=== PATIENT | female | born 1975 | race Caucasian/White ===

== ENCOUNTER → 2017-01-12 | Outpatient (REF) | payer MEDICARE, MEDICAID ==
[~2017-01-12] MED LIST: ACET500C; METF500T PO; NIAC10TAB PO; OMEG500C PO; TYLE500T53 OR; VESICARE OR
== END ==
LOC: M LAB REF 15:45
PROVIDERS: ATTEND Family Medicine
DX: R30.0 Dysuria (principal); R51 Headache; M99.01 Segmental and somatic dysfunction of cervical region; M99.00 Segmental and somatic dysfunction of head region
CPT/HCPCS: 81002; 87088; 87186; 98925; G0463

== ENCOUNTER → 2017-01-15 | Outpatient (REF) | payer MEDICARE, MEDICAID ==
[2017-01-15 13:57] LABS: ANION GAP 10 MEQ/L (8-16); BLOOD UREA NITROGEN 17 MG/DL (7-18); CALCIUM LEVEL 9.1 MG/DL (8.5-10.1); CARBON DIOXIDE LEVEL 26 MEQ/L (21-32); CHLORIDE LEVEL 106 MEQ/L (98-107); CREATININE FOR GFR 1.06 MG/DL (0.55-1.02); GLOMERULAR FILTRATION RATE > 60.0 (>58); GLUCOSE, FASTING 87 MG/DL (70-105); POTASSIUM SERUM 4.5 MEQ/L (3.5-5.1); SODIUM LEVEL 142 MEQ/L (136-145)
== END ==
LOC: M SFHCPLAZ 11:22
PROVIDERS: ATTEND Family Medicine
DX: R80.9 Proteinuria, unspecified (principal)

== ENCOUNTER → 2017-01-18 | Outpatient (CLI) | payer MEDICAID, MEDICARE ==
--- NOTE | 2017-01-18 13:42 | REP ---
URINARY TRACT SONOGRAPHY WITH RENAL ARTERY DOPPLER FLOW ASSESSMENT: HISTORY: Proteinuria. The patient is status post prior left nephrectomy. MORPHOLOGIC FINDINGS: Scanning at the level of the urinary bladder shows smooth bladder andersen. No extravesical lesion or ascites seen. Renal cortical echogenicity pattern is normal in the right kidney and right renal contours are smooth. The right kidney measures 14.1 x 6.2 x 7.2 cm. No hydronephrosis is seen. No cyst, mass, or calculus is seen. Imaging of the left renal fossa shows no evidence of mass. Prior nephrectomy. DOPPLER FLOW FINDINGS: Peak systolic flow velocity in the abdominal aorta is normal measured at 63.8 cm at the level of the main renal artery. Peak systolic flow velocity in the right main renal artery is 102 cm/s, which is also normal. Resistive indices and acceleration times are measured in the intralobar arteries of the right kidney in the upper, mid and lower pole. These values are normal. IMPRESSION: 1. Status post left nephrectomy. 2. No morphologic abnormality in the right kidney. 3. No renal artery Doppler evidence of stenosis. Signed by Mal James MD 01/18/2017 05:37 P
== END ==
LOC: M RAD 07:48
PROVIDERS: ATTEND Family Medicine
DX: R80.9 Proteinuria, unspecified (principal)

== ENCOUNTER → 2017-04-10 | Outpatient (REF) | payer MEDICARE, MEDICAID ==
[2017-04-10 18:45] LABS: BACTERIA, URINE MOD AMOUNT; HYALINE CAST, URINE NONE SEEN /lpf (0-1); SQUAMOUS EPITHELIAL CELL URINE MOD AMOUNT /hpf (SMALL AMT)
[2017-04-10 18:46] LABS: MICROSCOPIC EXAM PERFORMED
[2017-04-10 19:13] LABS: COMPLEMENT C3 137 MG/DL (90-180); COMPLEMENT C4 43.4 MG/DL (10-40)
[2017-04-11 12:10] LABS: HEPATITIS B SURFACE ANTIBODY NEGATIVE (POSITIVE)
[2017-04-14 00:06] LABS: SJOGREN'S ANTI SS-A <0.2 AI (0.0-0.9); SJOGREN'S ANTI SS-B <0.2 AI (0.0-0.9)
== END ==
LOC: M LAB REF 17:00
PROVIDERS: ATTEND Internal Medicine Nephrology
DX: R80.9 Proteinuria, unspecified (principal)

== ENCOUNTER → 2017-04-19 | Outpatient (REF) | payer MEDICARE, MEDICAID | LOC: M LAB REF 12:48 | PROVIDERS: ATTEND Internal Medicine Nephrology | DX: Z90.5 Acquired absence of kidney (principal); N18.6 End stage renal disease; R80.9 Proteinuria, unspecified ==

== ENCOUNTER → 2017-05-07 | Outpatient (CLI) | payer MEDICARE, MEDICAID ==
[~2017-05-07] MED LIST changes: +ALLO100T; +CLINDAMYCIN; +ERTA1INJ; +[UNRECOGNIZED DRUG - CODE]
[2017-05-07 13:02] LABS: BASO % 0.6 % (0.0-1.0); EOS # 0.1 K/mm3 (0.0-0.50); LARGE UNSTAINED CELL # 0.2 K/mm3 (0.0-0.4); LARGE UNSTAINED CELL % 1.9 % (0.0-4.0); LYMPH # 1.9 K/mm3 (1.5-4.5); LYMPH % 21.9 % (24.0-44.0); MEAN CORPUSCULAR HEMOGLOBIN 30.2 pg (27.0-33.0); MEAN CORPUSCULAR VOLUME 88.8 fl (80.0-96.0); MONO # 0.5 K/mm3 (0.0-0.8); MONO % 5.3 % (0.0-5.0); NEUTROPHILS % 69.3 % (36.0-66.0); PLATELET COUNT, AUTOMATED 302 k/mm3 (150-450); RED CELL DISTRIBUTION WIDTH 13.1 % (11.5-14.5); WHITE BLOOD COUNT 8.7 K/mm3 (4.0-10.0)
[2017-05-07 13:51] LABS: ALBUMIN 3.2 GM/DL (3.2-5.2); ANION GAP 7 MEQ/L (8-16); BLOOD UREA NITROGEN 12 MG/DL (7-18); CALCIUM LEVEL 8.7 MG/DL (8.5-10.1); CARBON DIOXIDE LEVEL 27 MEQ/L (21-32); CHLORIDE LEVEL 107 MEQ/L (98-107); CREATININE FOR GFR 1.06 MG/DL (0.55-1.02); GLOMERULAR FILTRATION RATE > 60.0 (>58); GLUCOSE, FASTING 93 MG/DL (70-105); PHOSPHORUS LEVEL 2.4 MG/DL (2.5-4.9); POTASSIUM SERUM 4.6 MEQ/L (3.5-5.1); SODIUM LEVEL 141 MEQ/L (136-145); URIC ACID 6.9 MG/DL (2.6-6.0)
== END ==
LOC: M LAB 11:39
PROVIDERS: ATTEND Internal Medicine Nephrology
DX: N18.3 Chronic kidney disease, stage 3 (moderate) (principal)

== ENCOUNTER → 2017-05-10 | Outpatient (CLI) | payer MEDICARE, MEDICAID | LOC: M LAB 15:48 | PROVIDERS: ATTEND Internal Medicine Nephrology | DX: N39.0 Urinary tract infection, site not specified (principal) ==

== ENCOUNTER → 2017-07-27 | Outpatient (REF) | payer MEDICARE, MEDICAID | LOC: M LAB REF 16:51 | PROVIDERS: ATTEND Internal Medicine Nephrology | DX: N18.2 Chronic kidney disease, stage 2 (mild) (principal); N39.0 Urinary tract infection, site not specified ==

== ENCOUNTER 2017-07-30 14:50 | Emergency (ER) | payer MEDICARE, MEDICAID ==
[~2017-07-30] VITALS: Ht 170.2 cm; Wt 100.0 kg
[~2017-07-30 14:50] MED LIST changes: -ALLO100T; -CLINDAMYCIN; -ERTA1INJ; -[UNRECOGNIZED DRUG - CODE]
[2017-07-30] MEDS ORDERED: ALLO100T (14:56)
[2017-07-30] MEDS ORDERED: CLINDAMYCIN (14:56)
[2017-07-30 18:46] LABS: CONTROL LINE UCG INT CTR LINE PRESENT
[2017-07-30] MEDS ORDERED: GENTAMICIN 100 MG in APPROPRIATE DILUENT 1 EA IV ONE (20:30)
[2017-07-30] MEDS ORDERED: GENTAMICIN 100 MG in D5W 50 ML IM ONE (21:15)
[2017-07-30 21:25] LABS: BASO % 0.3 % (0.0-1.0); EOS # 0.1 10^3/uL (0.0-0.50); EOS % 0.4 % (0.0-3.0); IMMATURE GRANULOCYTE % 0.3 % (0-0); LYMPH # 2.3 10^3/uL (1.5-4.5); LYMPH % 19.1 % (24.0-44.0); MEAN CORPUSCULAR HGB CONC 33.9 g/dl (32.0-36.5); MEAN CORPUSCULAR VOLUME 88.4 fl (80.0-96.0); MONO # 0.7 10^3/uL (0.0-0.8); MONO % 5.6 % (0.0-5.0); NEUTROPHILS # 8.7 10^3/uL (1.8-7.7); NEUTROPHILS % 74.3 % (36.0-66.0); PLATELET COUNT, AUTOMATED 364 10^3/uL (150-450); RED CELL DISTRIBUTION WIDTH 13.4 % (11.5-14.5); WHITE BLOOD COUNT 11.8 10^3/uL (4.0-10.0)
[2017-07-30] MEDS ORDERED: GENTAMICIN SULF INJ 80MG/2ML VIAL (J1580) IM ONE (21:30)
[2017-07-30 21:43] LABS: ANION GAP 10 MEQ/L (8-16); BLOOD UREA NITROGEN 15 MG/DL (7-18); CALCIUM LEVEL 8.8 MG/DL (8.5-10.1); CARBON DIOXIDE LEVEL 21 MEQ/L (21-32); CHLORIDE LEVEL 109 MEQ/L (98-107); CREATININE FOR GFR 0.97 MG/DL (0.55-1.02); GLOMERULAR FILTRATION RATE > 60.0 (>58); GLUCOSE, FASTING 88 MG/DL (70-105); POTASSIUM SERUM 4.5 MEQ/L (3.5-5.1); SODIUM LEVEL 140 MEQ/L (136-145)
[2017-07-30 22:14] VITALS: BP 143/98
== END 2017-07-30 22:27 | disposition home or self-care (01) ==
LOC: M ED 14:50
DX: N39.0 Urinary tract infection, site not specified (principal); A49.8 Other bacterial infections of unspecified site; Z79.899 Other long term (current) drug therapy; Z88.8 Allergy status to other drugs, medicaments and biological substances; Z88.1 Allergy status to other antibiotic agents; Z88.5 Allergy status to narcotic agent; Z88.6 Allergy status to analgesic agent; Z88.0 Allergy status to penicillin; Z88.2 Allergy status to sulfonamides
CPT/HCPCS: 36415; 80048; 81001; 84703; 85025; 87040; 87088; 87186; 96372; 99283; J1580

== ENCOUNTER → 2017-08-01 | Outpatient (CLI) | payer MEDICARE, MEDICAID ==
[~2017-08-01] MED LIST changes: +ALLO100T; +CLINDAMYCIN; +ERTA1INJ; +[UNRECOGNIZED DRUG - CODE]
--- NOTE | 2017-08-01 15:20 | REP ---
LEFT PICC LINE PLACEMENT: The procedure was performed by SHIRA Bhatt under the direct supervision of Dr. Kinsey. The procedure along with its risks, benefits, and complications were discussed with the patient prior to the examination. Informed consent was obtained both verbally and written. The patient was identified in the interventional suite and placed in a supine position. The left arm was marked, prepped and draped in the usual sterile fashion. A procedural time out was performed to ensure that the correct patient, site and procedure were being performed. Under ultrasound guidance, the left basilic vein was punctured. A thin guidewire was introduced and the needle was removed. Local infiltrative anesthesia was achieved using 2% lidocaine. A break-away sheath was then placed. Under fluoroscopic observation and via the break-away sheath, a 38.5 cm #4.5-Bangladeshi single lumen PICC line was placed with its tip a the junction of the distal superior vena cava. The catheter was flushed with heparinized saline and affixed to the patient's skin. The patient tolerated the procedure well. Fluoroscopy time of 0.8 minutes. IMPRESSION: Uncomplicated left arm PICC line placement. Reviewed by SHIRA Mayer 08/01/2017 04:35 PEdited and Signed by Vargas Kinsey MD 08/01/2017 05:01 P
== END ==
LOC: M RADPRO 08:30
PROVIDERS: ATTEND Internal Medicine Nephrology
DX: N10 Acute pyelonephritis (principal); N18.2 Chronic kidney disease, stage 2 (mild); Z90.5 Acquired absence of kidney; Z88.8 Allergy status to other drugs, medicaments and biological substances; Z88.0 Allergy status to penicillin; Z88.5 Allergy status to narcotic agent; Z88.1 Allergy status to other antibiotic agents; Z91.011 Allergy to milk products; Z79.899 Other long term (current) drug therapy

== ENCOUNTER 2017-08-03 16:00 | Emergency (ER) | payer MEDICARE, MEDICAID ==
[~2017-08-03] VITALS: Ht 170.2 cm; Wt 100.0 kg
[~2017-08-03 16:00] MED LIST changes: -ERTA1INJ; -[UNRECOGNIZED DRUG - CODE]
[2017-08-03] MEDS ORDERED: ERTA1INJ (16:07)
[2017-08-03] MEDS ORDERED: [UNRECOGNIZED DRUG - CODE] (16:07)
[2017-08-03 19:12] VITALS: BP 154/102
== END 2017-08-03 19:15 | disposition home or self-care (01) ==
LOC: M ED 16:00
DX: N39.0 Urinary tract infection, site not specified (principal); Z90.5 Acquired absence of kidney; Z95.9 Presence of cardiac and vascular implant and graft, unspecified; Z79.899 Other long term (current) drug therapy; Z88.8 Allergy status to other drugs, medicaments and biological substances; Z88.1 Allergy status to other antibiotic agents; Z88.5 Allergy status to narcotic agent; Z88.6 Allergy status to analgesic agent; Z88.0 Allergy status to penicillin; Z88.2 Allergy status to sulfonamides

== ENCOUNTER → 2017-12-10 | Outpatient (REF) | payer MEDICARE, MEDICAID | LOC: M LAB REF 17:09 | DX: N18.3 Chronic kidney disease, stage 3 (moderate) (principal); R80.9 Proteinuria, unspecified; M32.9 Systemic lupus erythematosus, unspecified | CPT/HCPCS: 82570 ==

== ENCOUNTER 2017-12-15 21:02 | Emergency (ER) | payer MEDICARE, MEDICAID ==
[2017-12-15 22:19] LABS: BASO % 0.4 % (0.0-1.0); EOS % 0.3 % (0.0-3.0); HEMATOCRIT 41.2 % (36.0-47.0); HEMOGLOBIN 13.9 g/dl (12.0-16.0); IMMATURE GRANULOCYTE % 0.3 % (0-3.0); LYMPH # 1.7 10^3/uL (1.5-4.5); MEAN CORPUSCULAR HEMOGLOBIN 29.8 pg (27.0-33.0); MEAN CORPUSCULAR HGB CONC 33.7 g/dl (32.0-36.5); MEAN CORPUSCULAR VOLUME 88.2 fl (80.0-96.0); MONO # 0.5 10^3/uL (0.0-0.8); MONO % 5.8 % (0.0-5.0); NEUTROPHILS # 6.9 10^3/uL (1.8-7.7); NEUTROPHILS % 75.2 % (36.0-66.0); PLATELET COUNT, AUTOMATED 329 10^3/uL (150-450); RED BLOOD COUNT 4.67 10^6/uL (4.00-5.40); RED CELL DISTRIBUTION WIDTH 12.8 % (11.5-14.5); WHITE BLOOD COUNT 9.2 10^3/uL (4.0-10.0)
[2017-12-15 22:22] LABS: KETONE, URINE AUTO RFX NEGATIVE (NEGATIVE); MUCUS, URINE RFX SMALL (NEGATIVE); NITRITE, URINE AUTO RFX NEGATIVE (NEGATIVE); RBC, URINE AUTO RFX 3 /HPF (0-3); SPECIFIC GRAVITY UR AUTO RFX 1.013 (1.002-1.035); SQUAM EPITHELIAL CELL UR AURFX 3 /HPF (0-6)
[2017-12-15] MEDS: NS 1,000 ML IV (22:22)
[2017-12-15 22:23] LABS: LEUKOCYTE ESTERASE UR AUTO RFX 1+ (NEGATIVE); WBC, URINE AUTO RFX 26 /HPF (0-3)
[2017-12-15] MEDS: ONDANSETRON 4MG/2ML VIAL (J2405) IV (22:23)
[2017-12-15 22:45] LABS: ALBUMIN 3.8 GM/DL (3.2-5.2); ALKALINE PHOSPHATASE 80 U/L (45-117); ALT/SGPT 13 U/L (12-78); AMYLASE 60 U/L (25-115); ANION GAP 7 MEQ/L (8-16); AST/SGOT 8 U/L (7-37); BILIRUBIN,DIRECT 0.1 MG/DL (0.0-0.2); BILIRUBIN,TOTAL 0.8 MG/DL (0.2-1.0); BLOOD UREA NITROGEN 8 MG/DL (7-18); CALCIUM LEVEL 9.1 MG/DL (8.5-10.1); CARBON DIOXIDE LEVEL 28 MEQ/L (21-32); CHLORIDE LEVEL 104 MEQ/L (98-107); GLUCOSE, FASTING 87 MG/DL (70-100); LIPASE 109 U/L (73-393); POTASSIUM SERUM 3.7 MEQ/L (3.5-5.1); SODIUM LEVEL 139 MEQ/L (136-145); TOTAL PROTEIN 7.6 GM/DL (6.4-8.2)
== END 2017-12-16 00:38 | disposition home or self-care (01) ==
LOC: M ED 12-16 00:38
DX: A08.4 Viral intestinal infection, unspecified (principal); R01.1 Cardiac murmur, unspecified; Z79.899 Other long term (current) drug therapy; Z88.8 Allergy status to other drugs, medicaments and biological substances; Z88.5 Allergy status to narcotic agent; Z91.041 Radiographic dye allergy status; Z88.1 Allergy status to other antibiotic agents; Z88.0 Allergy status to penicillin; Z88.2 Allergy status to sulfonamides
CPT/HCPCS: J2405

== ENCOUNTER → 2018-05-13 | Outpatient (REF) | payer MEDICARE, MEDICAID | LOC: M LAB REF 19:00 | DX: N39.0 Urinary tract infection, site not specified (principal) ==

== ENCOUNTER → 2018-05-20 | Outpatient (REF) | payer MEDICARE, MEDICAID ==
[2018-05-20 14:01] LABS: BASO # 0.1 10^3/uL (0.0-0.2); BASO % 0.6 % (0.0-1.0); EOS # 0.2 10^3/uL (0.0-0.50); EOS % 2.9 % (0.0-3.0); HEMATOCRIT 37.7 % (36.0-47.0); HEMOGLOBIN 12.9 g/dl (12.0-15.5); IMMATURE GRANULOCYTE % 0.5 % (0-3.0); LYMPH # 1.6 10^3/uL (1.5-4.5); LYMPH % 19.8 % (24.0-44.0); MEAN CORPUSCULAR HEMOGLOBIN 29.7 pg (27.0-33.0); MEAN CORPUSCULAR HGB CONC 34.2 g/dl (32.0-36.5); MEAN CORPUSCULAR VOLUME 86.9 fl (80.0-96.0); MONO # 0.6 10^3/uL (0.0-0.8); MONO % 6.7 % (0.0-5.0); NEUTROPHILS # 5.7 10^3/uL (1.8-7.7); NEUTROPHILS % 69.5 % (36.0-66.0); PLATELET COUNT, AUTOMATED 341 10^3/uL (150-450); RED BLOOD COUNT 4.34 10^6/uL (4.00-5.40); RED CELL DISTRIBUTION WIDTH 12.5 % (11.5-14.5); WHITE BLOOD COUNT 8.2 10^3/uL (4.0-10.0)
[2018-05-20 14:21] LABS: ERYTHROCYTE SEDIMENTATION RATE 40 mm/hr (0-20)
[2018-05-20 14:24] LABS: ANION GAP 8 MEQ/L (8-16); BLOOD UREA NITROGEN 15 MG/DL (7-18); C REACTIVE PROTEIN QUANTITATIV 0.98 MG/DL (0.00-0.30); CALCIUM LEVEL 8.4 MG/DL (8.5-10.1); CARBON DIOXIDE LEVEL 25 MEQ/L (21-32); CHLORIDE LEVEL 105 MEQ/L (98-107); CREATININE FOR GFR 1.01 MG/DL (0.55-1.30); GLOMERULAR FILTRATION RATE > 60.0 (>58); GLUCOSE, FASTING 82 MG/DL (70-100); POTASSIUM SERUM 4.3 MEQ/L (3.5-5.1); SODIUM LEVEL 138 MEQ/L (136-145)
== END ==
LOC: M LAB REF 13:38
DX: N12 Tubulo-interstitial nephritis, not specified as acute or chronic (principal)
CPT/HCPCS: 80048

== ENCOUNTER → 2018-05-27 | Outpatient (REF) | payer MEDICARE, MEDICAID ==
[2018-05-27 11:55] LABS: BASO % 0.4 % (0.0-1.0); EOS # 0.2 10^3/uL (0.0-0.50); EOS % 2.1 % (0.0-3.0); HEMATOCRIT 35.7 % (36.0-47.0); HEMOGLOBIN 12.5 g/dl (12.0-15.5); IMMATURE GRANULOCYTE % 0.3 % (0-3.0); LYMPH # 1.7 10^3/uL (1.5-4.5); MEAN CORPUSCULAR HEMOGLOBIN 31.5 pg (27.0-33.0); MEAN CORPUSCULAR VOLUME 89.9 fl (80.0-96.0); MONO # 0.6 10^3/uL (0.0-0.8); MONO % 8.5 % (0.0-5.0); NEUTROPHILS # 4.8 10^3/uL (1.8-7.7); NEUTROPHILS % 65.7 % (36.0-66.0); PLATELET COUNT, AUTOMATED 319 10^3/uL (150-450); RED BLOOD COUNT 3.97 10^6/uL (4.00-5.40); RED CELL DISTRIBUTION WIDTH 12.4 % (11.5-14.5); WHITE BLOOD COUNT 7.3 10^3/uL (4.0-10.0)
[2018-05-27 12:42] LABS: ANION GAP 12 MEQ/L (8-16); BLOOD UREA NITROGEN 15 MG/DL (7-18); C REACTIVE PROTEIN QUANTITATIV 0.53 MG/DL (0.00-0.30); CALCIUM LEVEL 8.8 MG/DL (8.5-10.1); CARBON DIOXIDE LEVEL 23 MEQ/L (21-32); CHLORIDE LEVEL 108 MEQ/L (98-107); CREATININE FOR GFR 1.15 MG/DL (0.55-1.30); GLOMERULAR FILTRATION RATE 54.8 (>58); GLUCOSE, FASTING 83 MG/DL (70-100); POTASSIUM SERUM 4.2 MEQ/L (3.5-5.1); SODIUM LEVEL 143 MEQ/L (136-145)
[2018-05-27 12:44] LABS: ERYTHROCYTE SEDIMENTATION RATE 41 mm/hr (0-20)
== END ==
LOC: M LAB REF 11:09
DX: N10 Acute pyelonephritis (principal)
CPT/HCPCS: 80048

== ENCOUNTER → 2018-05-31 | Outpatient (CLI) | payer MEDICARE, MEDICAID | LOC: M RAD 17:35 | DX: N39.0 Urinary tract infection, site not specified (principal); N20.0 Calculus of kidney | CPT/HCPCS: 74176 ==

== ENCOUNTER 2018-06-26 22:20 | Emergency (ER) | payer MEDICARE, MEDICAID ==
[2018-06-26 23:42] LABS: KETONE, URINE AUTO RFX NEGATIVE (NEGATIVE); LEUKOCYTE ESTERASE UR AUTO RFX TRACE (NEGATIVE); NITRITE, URINE AUTO RFX NEGATIVE (NEGATIVE); RBC, URINE AUTO RFX 1 /HPF (0-3); SPECIFIC GRAVITY UR AUTO RFX 1.016 (1.002-1.035); SQUAM EPITHELIAL CELL UR AURFX 3 /HPF (0-6); WBC, URINE AUTO RFX 18 /HPF (0-3)
[2018-06-27 00:55] LABS: BASO # 0.1 10^3/uL (0.0-0.2); BASO % 0.4 % (0.0-1.0); EOS # 0.1 10^3/uL (0.0-0.50); HEMATOCRIT 41.6 % (36.0-47.0); HEMOGLOBIN 14.1 g/dl (12.0-15.5); IMMATURE GRANULOCYTE % 0.4 % (0-3.0); LYMPH % 16.2 % (24.0-44.0); MEAN CORPUSCULAR HEMOGLOBIN 29.9 pg (27.0-33.0); MEAN CORPUSCULAR HGB CONC 33.9 g/dl (32.0-36.5); MEAN CORPUSCULAR VOLUME 88.1 fl (80.0-96.0); MONO # 0.8 10^3/uL (0.0-0.8); MONO % 6.2 % (0.0-5.0); NEUTROPHILS # 9.5 10^3/uL (1.8-7.7); NEUTROPHILS % 75.8 % (36.0-66.0); PLATELET COUNT, AUTOMATED 371 10^3/uL (150-450); RED BLOOD COUNT 4.72 10^6/uL (4.00-5.40); RED CELL DISTRIBUTION WIDTH 13.1 % (11.5-14.5); WHITE BLOOD COUNT 12.5 10^3/uL (4.0-10.0)
[2018-06-27 01:16] LABS: ANION GAP 8 MEQ/L (8-16); BLOOD UREA NITROGEN 15 MG/DL (7-18); CALCIUM LEVEL 9.1 MG/DL (8.5-10.1); CARBON DIOXIDE LEVEL 27 MEQ/L (21-32); CHLORIDE LEVEL 106 MEQ/L (98-107); CREATININE FOR GFR 1.24 MG/DL (0.55-1.30); GLOMERULAR FILTRATION RATE 50.3 (>58); GLUCOSE, FASTING 97 MG/DL (70-100); POTASSIUM SERUM 4.5 MEQ/L (3.5-5.1); SODIUM LEVEL 141 MEQ/L (136-145)
== END 2018-06-27 02:16 | disposition home or self-care (01) ==
LOC: M ED 22:20
DX: N30.90 Cystitis, unspecified without hematuria (principal); E28.2 Polycystic ovarian syndrome; M32.9 Systemic lupus erythematosus, unspecified; G43.909 Migraine, unspecified, not intractable, without status migrainosus; M79.7 Fibromyalgia; Z87.440 Personal history of urinary (tract) infections; Z79.899 Other long term (current) drug therapy; Z88.1 Allergy status to other antibiotic agents; Z88.8 Allergy status to other drugs, medicaments and biological substances
CPT/HCPCS: 74176

== ENCOUNTER → 2018-06-28 | Outpatient (CLI) | payer MEDICARE, MEDICAID ==
[2018-06-28 18:11] LABS: APPEARANCE, URINE CLEAR (CLEAR); BACTERIA, URINE AUTO 1+ (NEGATIVE); BILIRUBIN, URINE AUTO NEGATIVE (NEGATIVE); BLOOD, URINE BLOOD NEGATIVE (NEGATIVE); COLOR, URINE YELLOW (YELLOW); GLUCOSE, URINE (UA) AUTO NEGATIVE (NEGATIVE); KETONE, URINE AUTO NEGATIVE (NEGATIVE); LEUKOCYTE ESTERASE, URINE AUTO TRACE (NEGATIVE); NITRITE, URINE AUTO NEGATIVE (NEGATIVE); PROTEIN, URINE AUTO 2+ mg/dL (NEGATIVE); RBC, URINE AUTO 3 /HPF (0-3); SPECIFIC GRAVITY URINE AUTO 1.014 (1.002-1.035); SQUAMOUS EPITHELIAL CELL UR AU 1 /HPF (0-6); UROBILINOGEN, URINE AUTO 0.2 mg/dL (0.0-2.0); WBC, URINE AUTO 22 /HPF (0-3)
== END ==
LOC: M LAB 17:07
DX: N39.0 Urinary tract infection, site not specified (principal)

== ENCOUNTER 2018-07-01 16:56 | Inpatient (IN) | payer MEDICARE, MEDICAID ==
[2018-07-01] MEDS: NS 1,000 ML IV ×2 (18:00→20:40)
[2018-07-01] MEDS: MORPHINE 4 MG/ML 1ML VIAL/SYRINGE (J2270) IV (18:18)
[2018-07-01 18:21] LABS: BASO % 0.3 % (0.0-1.0); EOS # 0.1 10^3/uL (0.0-0.50); EOS % 0.9 % (0.0-3.0); HEMATOCRIT 39.1 % (36.0-47.0); HEMOGLOBIN 13.2 g/dl (12.0-15.5); IMMATURE GRANULOCYTE % 0.2 % (0-3.0); LYMPH # 1.8 10^3/uL (1.5-4.5); LYMPH % 19.9 % (24.0-44.0); MEAN CORPUSCULAR HEMOGLOBIN 29.5 pg (27.0-33.0); MEAN CORPUSCULAR HGB CONC 33.8 g/dl (32.0-36.5); MEAN CORPUSCULAR VOLUME 87.5 fl (80.0-96.0); MONO # 0.6 10^3/uL (0.0-0.8); MONO % 6.9 % (0.0-5.0); NEUTROPHILS # 6.5 10^3/uL (1.8-7.7); NEUTROPHILS % 71.8 % (36.0-66.0); PLATELET COUNT, AUTOMATED 355 10^3/uL (150-450); RED BLOOD COUNT 4.47 10^6/uL (4.00-5.40); RED CELL DISTRIBUTION WIDTH 12.9 % (11.5-14.5); WHITE BLOOD COUNT 9.1 10^3/uL (4.0-10.0)
[2018-07-01 18:22] LABS: KETONE, URINE AUTO RFX NEGATIVE (NEGATIVE); NITRITE, URINE AUTO RFX NEGATIVE (NEGATIVE); RBC, URINE AUTO RFX 2 /HPF (0-3); SPECIFIC GRAVITY UR AUTO RFX 1.014 (1.002-1.035); SQUAM EPITHELIAL CELL UR AURFX 2 /HPF (0-6)
[2018-07-01 18:24] LABS: LEUKOCYTE ESTERASE UR AUTO RFX TRACE (NEGATIVE); WBC, URINE AUTO RFX 12 /HPF (0-3)
[2018-07-01 18:45] LABS: ALBUMIN 3.3 GM/DL (3.2-5.2); ALBUMIN/GLOBULIN RATIO 0.94 (1.00-1.93); ALKALINE PHOSPHATASE 97 U/L (45-117); ALT/SGPT 14 U/L (12-78); ANION GAP 10 MEQ/L (8-16); AST/SGOT 10 U/L (7-37); BILIRUBIN,DIRECT < 0.1 MG/DL (0.0-0.2); BILIRUBIN,TOTAL 0.4 MG/DL (0.2-1.0); BLOOD UREA NITROGEN 12 MG/DL (7-18); CALCIUM LEVEL 8.6 MG/DL (8.5-10.1); CARBON DIOXIDE LEVEL 25 MEQ/L (21-32); CHLORIDE LEVEL 107 MEQ/L (98-107); CREATININE FOR GFR 1.03 MG/DL (0.55-1.30); GLOMERULAR FILTRATION RATE > 60.0 (>58); GLUCOSE, FASTING 102 MG/DL (70-100); POTASSIUM SERUM 4.1 MEQ/L (3.5-5.1); SODIUM LEVEL 142 MEQ/L (136-145); TOTAL PROTEIN 6.8 GM/DL (6.4-8.2)
[2018-07-01] MEDS: ERTAPENEM SODIUM 1 GM in NS MINI-BAG PLUS 50 ML IV (23:14)
[2018-07-01] MEDS: ALLOPURINOL 100 MG TAB PO (23:15)
[2018-07-01] MEDS: HYDROXYCHLOROQUINE 200 MG TAB PO (23:15)
[2018-07-02] MEDS: HEPARIN SOD (PORCINE) 5000 UNITS/ML VIAL SC ×3 (06:32→21:10)
[2018-07-02 06:47] LABS: BASO % 0.3 % (0.0-1.0); EOS # 0.1 10^3/uL (0.0-0.50); EOS % 0.8 % (0.0-3.0); HEMATOCRIT 35.9 % (36.0-47.0); HEMOGLOBIN 12.1 g/dl (12.0-15.5); IMMATURE GRANULOCYTE % 0.4 % (0-3.0); LYMPH # 2.2 10^3/uL (1.5-4.5); LYMPH % 19.5 % (24.0-44.0); MEAN CORPUSCULAR HEMOGLOBIN 29.7 pg (27.0-33.0); MEAN CORPUSCULAR HGB CONC 33.7 g/dl (32.0-36.5); MONO # 0.7 10^3/uL (0.0-0.8); MONO % 6.3 % (0.0-5.0); NEUTROPHILS # 8.1 10^3/uL (1.8-7.7); NEUTROPHILS % 72.7 % (36.0-66.0); PLATELET COUNT, AUTOMATED 341 10^3/uL (150-450); RED BLOOD COUNT 4.08 10^6/uL (4.00-5.40); WHITE BLOOD COUNT 11.1 10^3/uL (4.0-10.0)
[2018-07-02 07:11] LABS: ALBUMIN 2.7 GM/DL (3.2-5.2); ALBUMIN/GLOBULIN RATIO 0.84 (1.00-1.93); ALKALINE PHOSPHATASE 78 U/L (45-117); ALT/SGPT 11 U/L (12-78); ANION GAP 6 MEQ/L (8-16); AST/SGOT 11 U/L (7-37); BILIRUBIN,TOTAL 0.4 MG/DL (0.2-1.0); BLOOD UREA NITROGEN 10 MG/DL (7-18); CALCIUM LEVEL 8.1 MG/DL (8.5-10.1); CARBON DIOXIDE LEVEL 27 MEQ/L (21-32); CHLORIDE LEVEL 109 MEQ/L (98-107); CREATININE FOR GFR 0.92 MG/DL (0.55-1.30); GLOMERULAR FILTRATION RATE > 60.0 (>58); GLUCOSE, FASTING 92 MG/DL (70-100); POTASSIUM SERUM 4.2 MEQ/L (3.5-5.1); SODIUM LEVEL 142 MEQ/L (136-145); TOTAL PROTEIN 5.9 GM/DL (6.4-8.2)
[2018-07-02] MEDS: NS 1,000 ML IV ×2 (08:47→21:17)
[2018-07-02] MEDS: HYDROXYCHLOROQUINE 200 MG TAB PO ×2 (08:47→21:11)
[2018-07-02] MEDS: ACETAMINOPHEN TAB 650MG DOSE (2X325MG) PO (16:50)
[2018-07-02] MEDS: ERTAPENEM SODIUM 1 GM in NS MINI-BAG PLUS 50 ML IV (21:09)
[2018-07-02] MEDS: ALLOPURINOL 100 MG TAB PO (21:10)
[2018-07-03] MEDS: HEPARIN SOD (PORCINE) 5000 UNITS/ML VIAL SC ×3 (06:06→22:01)
[2018-07-03 06:59] LABS: BASO % 0.6 % (0.0-1.0); EOS # 0.1 10^3/uL (0.0-0.50); EOS % 1.3 % (0.0-3.0); HEMATOCRIT 35.4 % (36.0-47.0); IMMATURE GRANULOCYTE % 0.3 % (0-3.0); LYMPH # 2.2 10^3/uL (1.5-4.5); LYMPH % 30.4 % (24.0-44.0); MEAN CORPUSCULAR HEMOGLOBIN 29.7 pg (27.0-33.0); MEAN CORPUSCULAR HGB CONC 33.9 g/dl (32.0-36.5); MEAN CORPUSCULAR VOLUME 87.6 fl (80.0-96.0); MONO # 0.5 10^3/uL (0.0-0.8); MONO % 6.6 % (0.0-5.0); NEUTROPHILS # 4.3 10^3/uL (1.8-7.7); NEUTROPHILS % 60.8 % (36.0-66.0); PLATELET COUNT, AUTOMATED 311 10^3/uL (150-450); RED BLOOD COUNT 4.04 10^6/uL (4.00-5.40); WHITE BLOOD COUNT 7.1 10^3/uL (4.0-10.0)
[2018-07-03 07:16] LABS: ALBUMIN 2.7 GM/DL (3.2-5.2); ALBUMIN/GLOBULIN RATIO 0.82 (1.00-1.93); ALKALINE PHOSPHATASE 76 U/L (45-117); ALT/SGPT 11 U/L (12-78); ANION GAP 6 MEQ/L (8-16); AST/SGOT 11 U/L (7-37); BILIRUBIN,TOTAL 0.4 MG/DL (0.2-1.0); BLOOD UREA NITROGEN 10 MG/DL (7-18); CALCIUM LEVEL 8.3 MG/DL (8.5-10.1); CARBON DIOXIDE LEVEL 27 MEQ/L (21-32); CHLORIDE LEVEL 107 MEQ/L (98-107); CREATININE FOR GFR 0.92 MG/DL (0.55-1.30); GLOMERULAR FILTRATION RATE > 60.0 (>58); GLUCOSE, FASTING 89 MG/DL (70-100); POTASSIUM SERUM 3.9 MEQ/L (3.5-5.1); SODIUM LEVEL 140 MEQ/L (136-145)
[2018-07-03] MEDS: HYDROXYCHLOROQUINE 200 MG TAB PO ×2 (08:50→22:01)
[2018-07-03] MEDS: NS 1,000 ML IV (08:50)
[2018-07-03] MEDS ORDERED: LIDOCAINE 1% MDV 20ML VIAL As Ordered (13:43)
[2018-07-03] MEDS: SODIUM CHLORIDE 0.9% INJ 10 ML SYR IV ×2 (18:00→23:05)
[2018-07-03] MEDS: ALLOPURINOL 100 MG TAB PO (22:01)
[2018-07-03] MEDS: ERTAPENEM SODIUM 1 GM in NS MINI-BAG PLUS 50 ML IV (22:01)
[2018-07-04] MEDS: HEPARIN SOD (PORCINE) 5000 UNITS/ML VIAL SC (06:55)
[2018-07-04] MEDS: SODIUM CHLORIDE 0.9% INJ 10 ML SYR IV (06:56)
[2018-07-04 08:02] LABS: BASO % 0.3 % (0.0-1.0); EOS # 0.2 10^3/uL (0.0-0.50); EOS % 1.8 % (0.0-3.0); HEMATOCRIT 36.9 % (36.0-47.0); HEMOGLOBIN 12.6 g/dl (12.0-15.5); IMMATURE GRANULOCYTE % 0.2 % (0-3.0); LYMPH # 2.2 10^3/uL (1.5-4.5); LYMPH % 25.6 % (24.0-44.0); MEAN CORPUSCULAR HEMOGLOBIN 29.8 pg (27.0-33.0); MEAN CORPUSCULAR HGB CONC 34.1 g/dl (32.0-36.5); MEAN CORPUSCULAR VOLUME 87.2 fl (80.0-96.0); MONO # 0.6 10^3/uL (0.0-0.8); MONO % 7.3 % (0.0-5.0); NEUTROPHILS # 5.6 10^3/uL (1.8-7.7); NEUTROPHILS % 64.8 % (36.0-66.0); PLATELET COUNT, AUTOMATED 318 10^3/uL (150-450); RED BLOOD COUNT 4.23 10^6/uL (4.00-5.40); WHITE BLOOD COUNT 8.7 10^3/uL (4.0-10.0)
[2018-07-04 08:29] LABS: ALBUMIN 2.8 GM/DL (3.2-5.2); ALKALINE PHOSPHATASE 81 U/L (45-117); ALT/SGPT 13 U/L (12-78); ANION GAP 9 MEQ/L (8-16); AST/SGOT 9 U/L (7-37); BILIRUBIN,TOTAL 0.4 MG/DL (0.2-1.0); BLOOD UREA NITROGEN 9 MG/DL (7-18); CALCIUM LEVEL 8.4 MG/DL (8.5-10.1); CARBON DIOXIDE LEVEL 28 MEQ/L (21-32); CHLORIDE LEVEL 106 MEQ/L (98-107); CREATININE FOR GFR 1.01 MG/DL (0.55-1.30); GLOMERULAR FILTRATION RATE > 60.0 (>58); GLUCOSE, FASTING 87 MG/DL (70-100); POTASSIUM SERUM 3.7 MEQ/L (3.5-5.1); SODIUM LEVEL 143 MEQ/L (136-145); TOTAL PROTEIN 6.3 GM/DL (6.4-8.2)
[2018-07-04] MEDS: HYDROXYCHLOROQUINE 200 MG TAB PO (08:55)
== END 2018-07-04 14:00 | disposition home or self-care (01) | DRG 690 ==
LOC: M ED 16:56 → M ED INP 20:39 → M PED 22:35
PROC: 02HV33Z Insertion of Infusion Device into Superior Vena Cava, Percutaneous Approach (ICD-10-PCS; principal; 2018-07-03)
DX: N39.0 Urinary tract infection, site not specified (principal); N11.8 Other chronic tubulo-interstitial nephritis; N17.9 Acute kidney failure, unspecified; M10.9 Gout, unspecified; M32.10 Systemic lupus erythematosus, organ or system involvement unspecified; Z79.899 Other long term (current) drug therapy; Z88.8 Allergy status to other drugs, medicaments and biological substances; Z88.5 Allergy status to narcotic agent; Z88.1 Allergy status to other antibiotic agents; Z88.0 Allergy status to penicillin; Z88.2 Allergy status to sulfonamides; M79.7 Fibromyalgia; B96.4 Proteus (mirabilis) (morganii) as the cause of diseases classified elsewhere

== ENCOUNTER → 2018-07-17 | Outpatient (REF) | payer MEDICARE, MEDICAID ==
[2018-07-17 13:59] LABS: BASO % 0.6 % (0.0-1.0); EOS # 0.1 10^3/uL (0.0-0.50); EOS % 1.5 % (0.0-3.0); HEMATOCRIT 37.8 % (36.0-47.0); HEMOGLOBIN 12.8 g/dl (12.0-15.5); IMMATURE GRANULOCYTE % 0.3 % (0-3.0); LYMPH # 1.6 10^3/uL (1.5-4.5); LYMPH % 23.6 % (24.0-44.0); MEAN CORPUSCULAR HEMOGLOBIN 29.9 pg (27.0-33.0); MEAN CORPUSCULAR HGB CONC 33.9 g/dl (32.0-36.5); MEAN CORPUSCULAR VOLUME 88.3 fl (80.0-96.0); MONO # 0.5 10^3/uL (0.0-0.8); MONO % 7.3 % (0.0-5.0); NEUTROPHILS # 4.6 10^3/uL (1.8-7.7); NEUTROPHILS % 66.7 % (36.0-66.0); PLATELET COUNT, AUTOMATED 332 10^3/uL (150-450); RED BLOOD COUNT 4.28 10^6/uL (4.00-5.40); RED CELL DISTRIBUTION WIDTH 12.5 % (11.5-14.5); WHITE BLOOD COUNT 6.8 10^3/uL (4.0-10.0)
[2018-07-17 14:36] LABS: ALBUMIN 3.2 GM/DL (3.2-5.2); ALBUMIN/GLOBULIN RATIO 0.94 (1.00-1.93); ALKALINE PHOSPHATASE 96 U/L (45-117); ALT/SGPT 16 U/L (12-78); ANION GAP 5 MEQ/L (8-16); AST/SGOT 17 U/L (7-37); BILIRUBIN,TOTAL 0.3 MG/DL (0.2-1.0); BLOOD UREA NITROGEN 13 MG/DL (7-18); C REACTIVE PROTEIN QUANTITATIV 0.38 MG/DL (0.00-0.30); CALCIUM LEVEL 8.9 MG/DL (8.5-10.1); CARBON DIOXIDE LEVEL 27 MEQ/L (21-32); CHLORIDE LEVEL 106 MEQ/L (98-107); CREATININE FOR GFR 0.97 MG/DL (0.55-1.30); GLOMERULAR FILTRATION RATE > 60.0 (>58); GLUCOSE, FASTING 87 MG/DL (70-100); POTASSIUM SERUM 4.4 MEQ/L (3.5-5.1); SODIUM LEVEL 138 MEQ/L (136-145); TOTAL PROTEIN 6.6 GM/DL (6.4-8.2)
[2018-07-17 14:45] LABS: ERYTHROCYTE SEDIMENTATION RATE 31 mm/hr (0-20)
== END ==
LOC: M LAB REF 13:30
DX: N39.0 Urinary tract infection, site not specified (principal); N10 Acute pyelonephritis
CPT/HCPCS: 80053

== ENCOUNTER → 2018-07-24 | Outpatient (REF) | payer MEDICARE, MEDICAID ==
[2018-07-24 11:55] LABS: BASO % 0.5 % (0.0-1.0); EOS # 0.1 10^3/uL (0.0-0.50); EOS % 1.6 % (0.0-3.0); HEMATOCRIT 37.2 % (36.0-47.0); HEMOGLOBIN 12.7 g/dl (12.0-15.5); IMMATURE GRANULOCYTE % 0.2 % (0-3.0); LYMPH % 24.4 % (24.0-44.0); MEAN CORPUSCULAR HEMOGLOBIN 29.7 pg (27.0-33.0); MEAN CORPUSCULAR HGB CONC 34.1 g/dl (32.0-36.5); MEAN CORPUSCULAR VOLUME 87.1 fl (80.0-96.0); MONO # 0.7 10^3/uL (0.0-0.8); NEUTROPHILS # 5.2 10^3/uL (1.8-7.7); NEUTROPHILS % 64.3 % (36.0-66.0); PLATELET COUNT, AUTOMATED 347 10^3/uL (150-450); RED BLOOD COUNT 4.27 10^6/uL (4.00-5.40); RED CELL DISTRIBUTION WIDTH 12.7 % (11.5-14.5); WHITE BLOOD COUNT 8.1 10^3/uL (4.0-10.0)
[2018-07-24 12:31] LABS: ERYTHROCYTE SEDIMENTATION RATE 17 mm/hr (0-20)
[2018-07-24 13:08] LABS: ALBUMIN 3.2 GM/DL (3.2-5.2); ALBUMIN/GLOBULIN RATIO 0.97 (1.00-1.93); ALKALINE PHOSPHATASE 105 U/L (45-117); ALT/SGPT 20 U/L (12-78); ANION GAP 9 MEQ/L (8-16); AST/SGOT 22 U/L (7-37); BILIRUBIN,TOTAL 0.4 MG/DL (0.2-1.0); BLOOD UREA NITROGEN 14 MG/DL (7-18); C REACTIVE PROTEIN QUANTITATIV 0.41 MG/DL (0.00-0.30); CALCIUM LEVEL 8.5 MG/DL (8.5-10.1); CARBON DIOXIDE LEVEL 27 MEQ/L (21-32); CHLORIDE LEVEL 105 MEQ/L (98-107); CREATININE FOR GFR 0.98 MG/DL (0.55-1.30); GLOMERULAR FILTRATION RATE > 60.0 (>58); GLUCOSE, FASTING 82 MG/DL (70-100); POTASSIUM SERUM 4.3 MEQ/L (3.5-5.1); SODIUM LEVEL 141 MEQ/L (136-145); TOTAL PROTEIN 6.5 GM/DL (6.4-8.2)
== END ==
LOC: M LAB REF 11:43
DX: N39.0 Urinary tract infection, site not specified (principal); N10 Acute pyelonephritis
CPT/HCPCS: 80053

== ENCOUNTER → 2018-07-31 | Outpatient (REF) | payer MEDICARE, MEDICAID ==
[2018-07-31 16:16] LABS: BASO % 0.2 % (0.0-1.0); EOS # 0.1 10^3/uL (0.0-0.50); EOS % 1.3 % (0.0-3.0); HEMATOCRIT 39.3 % (36.0-47.0); HEMOGLOBIN 13.2 g/dl (12.0-15.5); IMMATURE GRANULOCYTE % 0.4 % (0-3.0); LYMPH # 1.8 10^3/uL (1.5-4.5); LYMPH % 21.8 % (24.0-44.0); MEAN CORPUSCULAR HEMOGLOBIN 29.8 pg (27.0-33.0); MEAN CORPUSCULAR HGB CONC 33.6 g/dl (32.0-36.5); MEAN CORPUSCULAR VOLUME 88.7 fl (80.0-96.0); MONO # 0.6 10^3/uL (0.0-0.8); MONO % 7.8 % (0.0-5.0); NEUTROPHILS # 5.6 10^3/uL (1.8-7.7); NEUTROPHILS % 68.5 % (36.0-66.0); PLATELET COUNT, AUTOMATED 356 10^3/uL (150-450); RED BLOOD COUNT 4.43 10^6/uL (4.00-5.40); RED CELL DISTRIBUTION WIDTH 12.8 % (11.5-14.5); WHITE BLOOD COUNT 8.2 10^3/uL (4.0-10.0)
[2018-07-31 16:36] LABS: ERYTHROCYTE SEDIMENTATION RATE 34 mm/hr (0-20)
[2018-07-31 16:55] LABS: ALBUMIN 3.3 GM/DL (3.2-5.2); ALKALINE PHOSPHATASE 103 U/L (45-117); ALT/SGPT 17 U/L (12-78); ANION GAP 9 MEQ/L (8-16); AST/SGOT 14 U/L (7-37); BILIRUBIN,TOTAL 0.5 MG/DL (0.2-1.0); BLOOD UREA NITROGEN 15 MG/DL (7-18); C REACTIVE PROTEIN QUANTITATIV 1.27 MG/DL (0.00-0.30); CALCIUM LEVEL 8.8 MG/DL (8.5-10.1); CARBON DIOXIDE LEVEL 25 MEQ/L (21-32); CHLORIDE LEVEL 106 MEQ/L (98-107); CREATININE FOR GFR 1.05 MG/DL (0.55-1.30); GLOMERULAR FILTRATION RATE > 60.0 (>58); GLUCOSE, FASTING 81 MG/DL (70-100); POTASSIUM SERUM 4.4 MEQ/L (3.5-5.1); SODIUM LEVEL 140 MEQ/L (136-145); TOTAL PROTEIN 6.6 GM/DL (6.4-8.2)
== END ==
LOC: M LAB REF 16:04
DX: N39.0 Urinary tract infection, site not specified (principal); Z87.440 Personal history of urinary (tract) infections
CPT/HCPCS: 80053

== ENCOUNTER → 2018-08-06 | Outpatient (REF) | payer MEDICARE ==
[2018-08-06 13:57] LABS: BASO % 0.2 % (0.0-1.0); EOS # 0.1 10^3/uL (0.0-0.50); EOS % 0.7 % (0.0-3.0); HEMOGLOBIN 13.8 g/dl (12.0-15.5); IMMATURE GRANULOCYTE % 0.3 % (0-3.0); LYMPH # 1.8 10^3/uL (1.5-4.5); LYMPH % 19.5 % (24.0-44.0); MEAN CORPUSCULAR HEMOGLOBIN 29.6 pg (27.0-33.0); MEAN CORPUSCULAR HGB CONC 33.7 g/dl (32.0-36.5); MONO # 0.5 10^3/uL (0.0-0.8); MONO % 5.6 % (0.0-5.0); NEUTROPHILS # 6.9 10^3/uL (1.8-7.7); NEUTROPHILS % 73.7 % (36.0-66.0); PLATELET COUNT, AUTOMATED 342 10^3/uL (150-450); RED BLOOD COUNT 4.66 10^6/uL (4.00-5.40); RED CELL DISTRIBUTION WIDTH 12.7 % (11.5-14.5); WHITE BLOOD COUNT 9.3 10^3/uL (4.0-10.0)
[2018-08-06 14:42] LABS: ERYTHROCYTE SEDIMENTATION RATE 21 mm/hr (0-20)
[2018-08-06 15:02] LABS: ALBUMIN 3.5 GM/DL (3.2-5.2); ALBUMIN/GLOBULIN RATIO 1.03 (1.00-1.93); ALKALINE PHOSPHATASE 97 U/L (45-117); ALT/SGPT 19 U/L (12-78); ANION GAP 9 MEQ/L (8-16); AST/SGOT 17 U/L (7-37); BILIRUBIN,TOTAL 0.6 MG/DL (0.2-1.0); BLOOD UREA NITROGEN 15 MG/DL (7-18); C REACTIVE PROTEIN QUANTITATIV 0.76 MG/DL (0.00-0.30); CALCIUM LEVEL 8.9 MG/DL (8.5-10.1); CARBON DIOXIDE LEVEL 25 MEQ/L (21-32); CHLORIDE LEVEL 106 MEQ/L (98-107); CREATININE FOR GFR 0.94 MG/DL (0.55-1.30); GLOMERULAR FILTRATION RATE > 60.0 (>58); GLUCOSE, FASTING 97 MG/DL (70-100); IMMUNOGLOBULIN G 911 MG/DL (681-1648); IMMUNOGLOBULIN M 143 MG/DL (40-230); POTASSIUM SERUM 4.4 MEQ/L (3.5-5.1); SODIUM LEVEL 140 MEQ/L (136-145); TOTAL PROTEIN 6.9 GM/DL (6.4-8.2); URIC ACID 7.9 MG/DL (2.6-6.0)
== END ==
LOC: M SFHCPLAZ 13:38
DX: N39.0 Urinary tract infection, site not specified (principal); N12 Tubulo-interstitial nephritis, not specified as acute or chronic; M10.071 Idiopathic gout, right ankle and foot
CPT/HCPCS: 84550

== ENCOUNTER → 2018-08-06 | Outpatient (REF) | payer MEDICARE ==
[2018-08-06 12:08] LABS: APPEARANCE, URINE HAZY (CLEAR); BACTERIA, URINE AUTO NEGATIVE (NEGATIVE); BILIRUBIN, URINE AUTO NEGATIVE (NEGATIVE); BLOOD, URINE BLOOD NEGATIVE (NEGATIVE); COLOR, URINE YELLOW (YELLOW); GLUCOSE, URINE (UA) AUTO NEGATIVE (NEGATIVE); KETONE, URINE AUTO NEGATIVE (NEGATIVE); LEUKOCYTE ESTERASE, URINE AUTO NEGATIVE (NEGATIVE); NITRITE, URINE AUTO NEGATIVE (NEGATIVE); PROTEIN, URINE AUTO 2+ mg/dL (NEGATIVE); RBC, URINE AUTO 2 /HPF (0-3); SPECIFIC GRAVITY URINE AUTO 1.017 (1.002-1.035); SQUAMOUS EPITHELIAL CELL UR AU 6 /HPF (0-6); UROBILINOGEN, URINE AUTO 0.2 mg/dL (0.0-2.0); WBC, URINE AUTO 11 /HPF (0-3)
== END ==
LOC: M SMT 11:28
DX: N12 Tubulo-interstitial nephritis, not specified as acute or chronic (principal); B96.4 Proteus (mirabilis) (morganii) as the cause of diseases classified elsewhere; N18.3 Chronic kidney disease, stage 3 (moderate); N13.721 Vesicoureteral-reflux with reflux nephropathy without hydroureter, unilateral; N39.0 Urinary tract infection, site not specified; N20.0 Calculus of kidney
CPT/HCPCS: 81001

== ENCOUNTER → 2018-08-20 | Outpatient (REF) | payer MEDICARE, MEDICAID ==
[2018-08-20 15:31] LABS: BASO % 0.4 % (0.0-1.0); EOS # 0.1 10^3/uL (0.0-0.50); HEMATOCRIT 42.6 % (36.0-47.0); HEMOGLOBIN 14.2 g/dl (12.0-15.5); IMMATURE GRANULOCYTE % 0.3 % (0-3.0); LYMPH # 1.5 10^3/uL (1.5-4.5); MEAN CORPUSCULAR HEMOGLOBIN 29.8 pg (27.0-33.0); MEAN CORPUSCULAR HGB CONC 33.3 g/dl (32.0-36.5); MEAN CORPUSCULAR VOLUME 89.5 fl (80.0-96.0); MONO # 0.6 10^3/uL (0.0-0.8); MONO % 7.8 % (0.0-5.0); NEUTROPHILS # 5.4 10^3/uL (1.8-7.7); NEUTROPHILS % 70.5 % (36.0-66.0); PLATELET COUNT, AUTOMATED 372 10^3/uL (150-450); RED BLOOD COUNT 4.76 10^6/uL (4.00-5.40); RED CELL DISTRIBUTION WIDTH 12.5 % (11.5-14.5); WHITE BLOOD COUNT 7.7 10^3/uL (4.0-10.0)
[2018-08-20 15:59] LABS: ANION GAP 9 MEQ/L (8-16); BLOOD UREA NITROGEN 17 MG/DL (7-18); C REACTIVE PROTEIN QUANTITATIV 0.42 MG/DL (0.00-0.30); CALCIUM LEVEL 9.4 MG/DL (8.5-10.1); CARBON DIOXIDE LEVEL 28 MEQ/L (21-32); CHLORIDE LEVEL 106 MEQ/L (98-107); CREATININE FOR GFR 1.07 MG/DL (0.55-1.30); GLOMERULAR FILTRATION RATE 59.6 (>58); GLUCOSE, FASTING 83 MG/DL (70-100); POTASSIUM SERUM 4.7 MEQ/L (3.5-5.1); SODIUM LEVEL 143 MEQ/L (136-145)
[2018-08-20 16:25] LABS: ERYTHROCYTE SEDIMENTATION RATE 22 mm/hr (0-20)
== END ==
LOC: M SFHCPLAZ 12:20
DX: N12 Tubulo-interstitial nephritis, not specified as acute or chronic (principal)
CPT/HCPCS: 80048

== ENCOUNTER → 2018-08-26 | Outpatient (REF) | payer MEDICARE, MEDICAID | LOC: M LAB REF 17:20 | DX: N39.0 Urinary tract infection, site not specified (principal) | CPT/HCPCS: 87086 ==

== ENCOUNTER 2018-08-28 22:48 | Emergency (ER) | payer MEDICARE, MEDICAID ==
[2018-08-29 00:06] LABS: KETONE, URINE AUTO RFX NEGATIVE (NEGATIVE); LEUKOCYTE ESTERASE UR AUTO RFX NEGATIVE (NEGATIVE); MUCUS, URINE RFX SMALL (NEGATIVE); NITRITE, URINE AUTO RFX NEGATIVE (NEGATIVE); RBC, URINE AUTO RFX 1 /HPF (0-3); SPECIFIC GRAVITY UR AUTO RFX 1.016 (1.002-1.035); SQUAM EPITHELIAL CELL UR AURFX 9 /HPF (0-6); WBC, URINE AUTO RFX 4 /HPF (0-3)
[2018-08-29 02:13] LABS: BASO # 0.1 10^3/uL (0.0-0.2); BASO % 0.6 % (0.0-1.0); EOS # 0.1 10^3/uL (0.0-0.50); HEMATOCRIT 39.7 % (36.0-47.0); HEMOGLOBIN 13.5 g/dl (12.0-15.5); IMMATURE GRANULOCYTE % 0.3 % (0-3.0); LYMPH # 2.2 10^3/uL (1.5-4.5); MEAN CORPUSCULAR HEMOGLOBIN 29.8 pg (27.0-33.0); MEAN CORPUSCULAR VOLUME 87.6 fl (80.0-96.0); MONO # 0.6 10^3/uL (0.0-0.8); MONO % 6.4 % (0.0-5.0); NEUTROPHILS # 6.5 10^3/uL (1.8-7.7); NEUTROPHILS % 68.7 % (36.0-66.0); PLATELET COUNT, AUTOMATED 362 10^3/uL (150-450); RED BLOOD COUNT 4.53 10^6/uL (4.00-5.40); RED CELL DISTRIBUTION WIDTH 12.7 % (11.5-14.5); WHITE BLOOD COUNT 9.4 10^3/uL (4.0-10.0)
[2018-08-29 02:28] LABS: ANION GAP 8 MEQ/L (8-16); BLOOD UREA NITROGEN 10 MG/DL (7-18); CARBON DIOXIDE LEVEL 29 MEQ/L (21-32); CHLORIDE LEVEL 104 MEQ/L (98-107); GLOMERULAR FILTRATION RATE 57.7 (>58); GLUCOSE, FASTING 89 MG/DL (70-100); POTASSIUM SERUM 4.3 MEQ/L (3.5-5.1); SODIUM LEVEL 141 MEQ/L (136-145)
== END 2018-08-29 02:39 | disposition home or self-care (01) ==
LOC: M ED 22:48
DX: R10.9 Unspecified abdominal pain (principal); R10.819 Abdominal tenderness, unspecified site; G43.909 Migraine, unspecified, not intractable, without status migrainosus; M79.7 Fibromyalgia; M32.9 Systemic lupus erythematosus, unspecified; Z87.442 Personal history of urinary calculi; Z87.891 Personal history of nicotine dependence; Z79.899 Other long term (current) drug therapy; Z88.8 Allergy status to other drugs, medicaments and biological substances; Z88.1 Allergy status to other antibiotic agents; Z88.5 Allergy status to narcotic agent; Z88.6 Allergy status to analgesic agent; Z88.0 Allergy status to penicillin; Z88.2 Allergy status to sulfonamides
CPT/HCPCS: 80048

== ENCOUNTER → 2018-09-03 | Outpatient (CLI) | payer MEDICARE ==
[~2018-09-03] MED LIST changes: -ACET500C; -ALLO100T; -CLINDAMYCIN; +CYSTO-CONRAY II 17.2% 250ML VIAL (Q9958) As Ordered; -METF500T PO; -NIAC10TAB PO; -OMEG500C PO; -TYLE500T53 OR; -VESICARE OR
== END ==
LOC: M RADPRO 13:40
DX: N39.0 Urinary tract infection, site not specified (principal); Z90.5 Acquired absence of kidney
CPT/HCPCS: 51600

== ENCOUNTER 2018-10-31 23:43 | Emergency (ER) | payer MEDICARE ==
[~2018-10-31] VITALS: Ht 170.2 cm; Wt 100.9 kg
[~2018-10-31 23:43] MED LIST changes: +ACET500C; +ACET500T15 PO; +ALBU17IN2; +ALLO100T PO; +CLINDAMYCIN; -CYSTO-CONRAY II 17.2% 250ML VIAL (Q9958) As Ordered; +ERTA1INJ2 IV; +HYDR200T3 PO; +INVA1INJ IV; +INVA1SOL; +METF500T PO; +NIAC10TAB PO; +OMEG500C PO; +TYLE500T53 PO; +VESICARE OR; +VITA1CAP25 PO; +ZOFR4TAB14 PO; +[UNRECOGNIZED DRUG - CODE]
[2018-11-01] MEDS ORDERED: ALLOPOW4 (00:01)
[2018-11-01 00:54] LABS: BASO # 0.1 10^3/uL (0.0-0.2); BASO % 0.5 % (0.0-1.0); EOS # 0.1 10^3/uL (0.0-0.50); EOS % 0.7 % (0.0-3.0); HEMATOCRIT 43.2 % (36.0-47.0); HEMOGLOBIN 14.4 g/dl (12.0-15.5); LYMPH # 2.3 10^3/uL (1.5-4.5); LYMPH % 21.2 % (24.0-44.0); MEAN CORPUSCULAR HEMOGLOBIN 30.2 pg (27.0-33.0); MEAN CORPUSCULAR HGB CONC 33.3 g/dl (32.0-36.5); MEAN CORPUSCULAR VOLUME 90.6 fl (80.0-96.0); MONO # 0.9 10^3/uL (0.0-0.8); MONO % 8.6 % (0.0-5.0); NEUTROPHILS # 7.3 10^3/uL (1.8-7.7); NEUTROPHILS % 68.5 % (36.0-66.0); PLATELET COUNT, AUTOMATED 386 10^3/uL (150-450); RED BLOOD COUNT 4.77 10^6/uL (4.00-5.40); WHITE BLOOD COUNT 10.7 10^3/uL (4.0-10.0)
[2018-11-01 01:04] LABS: ALBUMIN 3.8 GM/DL (3.2-5.2); BILIRUBIN,TOTAL 0.4 MG/DL (0.2-1.0); CALCIUM LEVEL 9.1 MG/DL (8.5-10.1); CREATININE FOR GFR 1.27 MG/DL (0.55-1.30); GLOMERULAR FILTRATION RATE 48.9 (>58); TOTAL PROTEIN 7.3 GM/DL (6.4-8.2)
--- NOTE | 2018-11-01 01:24 | REPVR ---
EXAM: CT Abdomen and Pelvis Without Contrast EXAM DATE/TIME: 11/01/2018 12:11 AM CLINICAL HISTORY: 43 years old, female; Pain; Abdominal pain; Flank; Right; Prior surgery; Surgery date: 6+ months; Surgery type: Left nephrectomy; Additional info: Kidney stone TECHNIQUE: Axial computed tomography images of the abdomen and pelvis without contrast. All CT scans at this facility use at least one of these dose optimization techniques: automated exposure control; mA and/or kV adjustment per patient size (includes targeted exams where dose is matched to clinical indication); or iterative reconstruction. Coronal and sagittal reformatted images were created and reviewed. COMPARISON: CT ABD PELVIS W/O CONTRAST 06/27/2018 12:48 AM FINDINGS: Tubes, catheters and devices: Neurostimulator device in the subcutaneous tissues of the right flank with single lead in the posterior spinal canal at approximately the T9 level. Lower thorax: Unremarkable. ABDOMEN: Liver: Unremarkable. Gallbladder and bile ducts: No radiodense gallstones. No biliary ductal dilatation. Pancreas: Unremarkable. Spleen: Unremarkable. Adrenals: Unremarkable. Kidneys and ureters: Status post left nephrectomy. Right renal cortical scarring. 6 mm nonobstructing right renal calculus. No hydronephrosis. Stomach and bowel: No bowel wall thickening. No obstruction. No pneumatosis. Appendix: Findings suggestive of prior appendectomy. PELVIS: Bladder: Mild circumferential urinary bladder wall thickening, likely secondary to underdistention. Reproductive: Status post hysterectomy. ABDOMEN and PELVIS: Intraperitoneal space: No free fluid. No organized fluid collection. No free air. Bones/joints: No acute osseous abnormality. Mild degenerative changes. Soft tissues: Tiny, fat-containing umbilical hernia. Vasculature: Unremarkable. No aneurysm. Lymph nodes: No pathologically enlarged lymph nodes. IMPRESSION: 1. Limited noncontrast examination without CT evidence of acute intra-abdominal or pelvic pathology. 2. Additional findings, as above. Electronically signed by: Kevin Hdez On 11/01/2018 01:23:56 AM
[2018-11-01 01:48] VITALS: BP 133/74
== END 2018-11-01 01:53 | disposition home or self-care (01) ==
LOC: M ED 23:43
DX: R30.0 Dysuria (principal); R10.9 Unspecified abdominal pain; N20.0 Calculus of kidney; M32.9 Systemic lupus erythematosus, unspecified; M79.7 Fibromyalgia; E78.5 Hyperlipidemia, unspecified; Z90.5 Acquired absence of kidney; G43.909 Migraine, unspecified, not intractable, without status migrainosus; E28.2 Polycystic ovarian syndrome; Z88.8 Allergy status to other drugs, medicaments and biological substances; Z88.5 Allergy status to narcotic agent; Z88.1 Allergy status to other antibiotic agents; Z88.2 Allergy status to sulfonamides; Z79.899 Other long term (current) drug therapy

== ENCOUNTER → 2018-11-27 | Outpatient (REF) | payer MEDICARE ==
[~2018-11-27] MED LIST changes: +ALLOPOW4
== END ==
LOC: M LAB REF 17:16
PROVIDERS: ATTEND Internal Medicine Nephrology
DX: N39.0 Urinary tract infection, site not specified (principal)

== ENCOUNTER → 2019-01-09 | Outpatient (CLI) | payer MEDICARE ==
[2019-01-09 18:01] LABS: CALCIUM LEVEL 8.5 MG/DL (8.5-10.1); CREATININE FOR GFR 1.15 MG/DL (0.55-1.30); GLOMERULAR FILTRATION RATE 54.8 (>58); POTASSIUM SERUM 4.3 MEQ/L (3.5-5.1)
== END ==
LOC: M LAB 16:10
PROVIDERS: ATTEND Urology
DX: N20.0 Calculus of kidney (principal)

== ENCOUNTER → 2019-03-06 | Outpatient (CLI) | payer MEDICARE ==
--- NOTE | 2019-03-07 07:49 | REP ---
Clinical: Nontraumatic right wrist pain. Technique: AP, lateral, bilateral oblique views. Findings: Generalized age-related changes are appreciated. The carpal bones, surrounding osseous structures, soft tissues, and joint spaces are intact and there is no evidence for acute fracture or dislocation. No subcutaneous emphysema or radiodense foreign body. Impression: Age-appropriate right wrist series. No acute fracture or dislocation. No significant arthritic degenerative changes. Electronically Signed by Lobo Ferrer MD 03/07/2019 12:55 A
== END ==
LOC: M WUC 19:10
PROVIDERS: ATTEND Physician Assistant
DX: M25.531 Pain in right wrist (principal)

== ENCOUNTER 2019-04-24 18:31 | Emergency (ER) | payer MEDICARE, MEDICAID ==
[~2019-04-24] VITALS: Ht 170.2 cm; Wt 101.3 kg
[2019-04-24 18:32] VITALS: BP 145/91
[2019-04-24] MEDS ORDERED: ZYLO300T6 (18:39)
== END 2019-04-24 20:01 | disposition home or self-care (01) ==
LOC: M ED 18:31
DX: R35.0 Frequency of micturition (principal); M32.9 Systemic lupus erythematosus, unspecified; Z79.899 Other long term (current) drug therapy; Z87.440 Personal history of urinary (tract) infections; Z87.448 Personal history of other diseases of urinary system; Z90.5 Acquired absence of kidney; Z98.51 Tubal ligation status

== ENCOUNTER 2019-04-28 19:13 | Emergency (ER) | payer MEDICARE, MEDICAID ==
[~2019-04-28] VITALS: Ht 170.2 cm; Wt 100.9 kg
[~2019-04-28 19:13] MED LIST changes: -ALBU17IN2; +PROV108A
[2019-04-28 19:43] LABS: APPEARANCE, URINE CLEAR (CLEAR); BACTERIA, URINE AUTO NEGATIVE (NEGATIVE); BILIRUBIN, URINE AUTO NEGATIVE (NEGATIVE); BLOOD, URINE BLOOD NEGATIVE (NEGATIVE); COLOR, URINE STRAW (YELLOW); GLUCOSE, URINE (UA) AUTO NEGATIVE (NEGATIVE); KETONE, URINE AUTO NEGATIVE (NEGATIVE); LEUKOCYTE ESTERASE, URINE AUTO NEGATIVE (NEGATIVE); NITRITE, URINE AUTO NEGATIVE (NEGATIVE); PROTEIN, URINE AUTO 2+ mg/dL (NEGATIVE); RBC, URINE AUTO 1 /HPF (0-3); SPECIFIC GRAVITY URINE AUTO 1.012 (1.002-1.035); SQUAMOUS EPITHELIAL CELL UR AU 0 /HPF (0-6); UROBILINOGEN, URINE AUTO 0.2 mg/dL (0.0-2.0); WBC, URINE AUTO 2 /HPF (0-3)
[2019-04-28 21:49] LABS: HEMATOCRIT 41.6 % (36.0-47.0); HEMOGLOBIN 14.2 g/dl (12.0-15.5); MEAN CORPUSCULAR HEMOGLOBIN 30.9 pg (27.0-33.0); MEAN CORPUSCULAR HGB CONC 34.1 g/dl (32.0-36.5); MEAN CORPUSCULAR VOLUME 90.6 fl (80.0-96.0); PLATELET COUNT, AUTOMATED 339 10^3/uL (150-450); RED BLOOD COUNT 4.59 10^6/uL (4.00-5.40); WHITE BLOOD COUNT 11.3 10^3/uL (4.0-10.0)
[2019-04-28 23:18] LABS: ALBUMIN 3.4 GM/DL (3.2-5.2); BILIRUBIN,DIRECT 0.1 MG/DL (0.0-0.2); BILIRUBIN,TOTAL 0.5 MG/DL (0.2-1.0)
[2019-04-28] MEDS ORDERED: ACETAMINOPHEN 500 MG TAB PO ONE (23:30)
--- NOTE | 2019-04-28 23:56 | REPVR ---
EXAM: CT Abdomen and Pelvis Without Contrast EXAM DATE/TIME: 04/28/2019 10:52 PM CLINICAL HISTORY: 44 years old, female; Abdominal pain; Flank; Right; Prior surgery; Additional info: RO obstructing kidney stone TECHNIQUE: Imaging protocol: Axial computed tomography images of the abdomen and pelvis without contrast. Coronal and sagittal reformatted images were created and reviewed. Radiation optimization: All CT scans at this facility use at least one of these dose optimization techniques: automated exposure control; mA and/or kV adjustment per patient size (includes targeted exams where dose is matched to clinical indication); or iterative reconstruction. COMPARISON: CT ABD PELVIS W/O CONTRAST 11/01/2018 12:16 AM Study limitations: Evaluation for mass, inflammatory change, including bowel wall/fold thickening, viscera, and vasculature, is suboptimal without contrast. FINDINGS: LUNG BASES: No infiltrate or effusion. VASCULAR: No abdominal aortic aneurysm or retroperitoneal hematoma. Mild atherosclerosis. PERITONEAL : No free air or free fluid. GI: No hiatal hernia. The stomach is not sufficiently distended to evaluate wall thickening. No evidence of bowel obstruction. There is no focal mesenteric inflammatory stranding. Small nonspecific mesenteric lymph nodes are noted. Scattered fecal material and gas within portions of the colon. Portions of the colon appear slightly thickwalled, however this may be artifact secondary to insufficient distention. No pericolonic inflammatory stranding. No evidence of acute diverticulitis. The appendix is not visualized and may have been removed. HEPATOBILIARY, PANCREAS, SPLEEN: Sagittal hepatic length is 17.3 cm. Hepatic attenuation is consistent with mild fatty infiltration. No calcified gallstones. Evaluation of the gallbladder wall is slightly limited by motion haziness. If there are symptoms related to the gallbladder, consider ultrasound. No obvious biliary dilation. No pancreatic inflammation. Spleen not enlarged. ADRENALS, KIDNEYS, BLADDER, RETROPERITONEAL: Adrenals within normal limits. The left kidney is absent. Surgical clips are noted in the left renal fossa. Evaluation of right renal parenchyma is limited without contrast. There are areas of cortical thinning likely secondary to parenchymal scarring. 6 mm calculus at the lower pole of the right kidney. There is no hydronephrosis. No right ureteral calculi. No calculi within the urinary bladder. No perinephric fluid. No bladder wall thickening. No perivesical stranding or fluid. PELVIC: Lobular appearing ovaries may represent underlying follicular changes. No dominant cystic adnexal mass seen. Gas within the vagina may be iatrogenic. MUSCULOSKELETAL: Tiny fat containing umbilical hernia. Degenerative changes in the spine, most pronounced at the lumbosacral junction. An implanted electronic device noted along the right supragluteal subcutaneous fat with electrode along the posterior aspect of the thoracic spinal canal, the tip at the T8/T9 junction. IMPRESSION: Nonobstructive right renal calculus. No obstructive genitourinary calculi seen. Other incidental and non-emergent findings discussed above. Electronically signed by: Nicolás Hernandez On 04/28/2019 23:55:58 PM
[2019-04-29 00:15] VITALS: BP 161/92
== END 2019-04-29 00:16 | disposition home or self-care (01) ==
LOC: M ED 19:13
DX: N20.0 Calculus of kidney (principal); Z87.440 Personal history of urinary (tract) infections; E28.2 Polycystic ovarian syndrome; Z87.42 Personal history of other diseases of the female genital tract; F41.9 Anxiety disorder, unspecified; F32.9 Major depressive disorder, single episode, unspecified; E78.5 Hyperlipidemia, unspecified; M79.7 Fibromyalgia; M32.9 Systemic lupus erythematosus, unspecified; Z87.442 Personal history of urinary calculi; Z90.5 Acquired absence of kidney; Z87.891 Personal history of nicotine dependence; Z88.8 Allergy status to other drugs, medicaments and biological substances; Z88.0 Allergy status to penicillin; Z88.5 Allergy status to narcotic agent; Z88.1 Allergy status to other antibiotic agents; Z88.2 Allergy status to sulfonamides; Z79.899 Other long term (current) drug therapy

== ENCOUNTER → 2019-04-28 | Outpatient (REF) | payer MEDICARE, MEDICAID ==
[~2019-04-28] MED LIST changes: +ZYLO300T6
[2019-04-28 21:18] LABS: APPEARANCE, URINE HAZY (CLEAR); BACTERIA, URINE AUTO NEGATIVE (NEGATIVE); BILIRUBIN, URINE AUTO NEGATIVE (NEGATIVE); BLOOD, URINE BLOOD NEGATIVE (NEGATIVE); COLOR, URINE YELLOW (YELLOW); GLUCOSE, URINE (UA) AUTO NEGATIVE (NEGATIVE); KETONE, URINE AUTO NEGATIVE (NEGATIVE); LEUKOCYTE ESTERASE, URINE AUTO NEGATIVE (NEGATIVE); MUCUS, URINE SMALL (NEGATIVE); NITRITE, URINE AUTO NEGATIVE (NEGATIVE); PROTEIN, URINE AUTO 2+ mg/dL (NEGATIVE); RBC, URINE AUTO 1 /HPF (0-3); SPECIFIC GRAVITY URINE AUTO 1.016 (1.002-1.035); SQUAMOUS EPITHELIAL CELL UR AU 1 /HPF (0-6); UROBILINOGEN, URINE AUTO 0.2 mg/dL (0.0-2.0); WBC, URINE AUTO 2 /HPF (0-3)
== END ==
LOC: M LAB REF 12:08
PROVIDERS: ATTEND Physician Assistant Medical
DX: N39.0 Urinary tract infection, site not specified (principal)

== ENCOUNTER → 2019-05-06 | Outpatient (REF) | payer MEDICARE, MEDICAID ==
[~2019-05-06] MED LIST changes: +ALBU17IN2; -PROV108A
== END ==
LOC: M LAB REF 17:12
PROVIDERS: ATTEND Internal Medicine Nephrology
DX: N39.0 Urinary tract infection, site not specified (principal)

== ENCOUNTER → 2019-06-10 | Outpatient (CLI) | payer MEDICARE, MEDICAID ==
[~2019-06-10] MED LIST changes: -ALBU17IN2; +FLOM0.4C39 PO; +PROV108A; +[UNRECOGNIZED DRUG - CODE] PO
[2019-06-10 10:36] LABS: AMORPHOUS SEDIMENT SMALL (NEGATIVE); APPEARANCE, URINE CLEAR (CLEAR); BACTERIA, URINE AUTO NEGATIVE (NEGATIVE); BILIRUBIN, URINE AUTO NEGATIVE (NEGATIVE); BLOOD, URINE BLOOD NEGATIVE (NEGATIVE); COLOR, URINE YELLOW (YELLOW); GLUCOSE, URINE (UA) AUTO NEGATIVE (NEGATIVE); KETONE, URINE AUTO NEGATIVE (NEGATIVE); LEUKOCYTE ESTERASE, URINE AUTO NEGATIVE (NEGATIVE); MUCUS, URINE SMALL (NEGATIVE); NITRITE, URINE AUTO NEGATIVE (NEGATIVE); PROTEIN, URINE AUTO 2+ mg/dL (NEGATIVE); RBC, URINE AUTO 2 /HPF (0-3); SPECIFIC GRAVITY URINE AUTO 1.012 (1.002-1.035); SQUAMOUS EPITHELIAL CELL UR AU 0 /HPF (0-6); UROBILINOGEN, URINE AUTO 0.2 mg/dL (0.0-2.0); WBC, URINE AUTO 1 /HPF (0-3)
[2019-06-10 10:46] LABS: BASO # 0.1 10^3/uL (0.0-0.2); BASO % 0.9 % (0.0-1.0); EOS % 0.6 % (0.0-3.0); HEMATOCRIT 41.8 % (36.0-47.0); HEMOGLOBIN 13.8 g/dl (12.0-15.5); LYMPH # 1.5 10^3/uL (1.5-4.5); LYMPH % 21.3 % (24.0-44.0); MEAN CORPUSCULAR HEMOGLOBIN 29.8 pg (27.0-33.0); MEAN CORPUSCULAR VOLUME 90.3 fl (80.0-96.0); MONO # 0.6 10^3/uL (0.0-0.8); MONO % 7.9 % (0.0-5.0); NEUTROPHILS # 4.8 10^3/uL (1.8-7.7); PLATELET COUNT, AUTOMATED 305 10^3/uL (150-450); RED BLOOD COUNT 4.63 10^6/uL (4.00-5.40)
[2019-06-10 10:58] LABS: ALBUMIN 3.4 GM/DL (3.2-5.2); ALT/SGPT 16 U/L (12-78); BILIRUBIN,TOTAL 0.4 MG/DL (0.2-1.0); BLOOD UREA NITROGEN 16 MG/DL (7-18); CALCIUM LEVEL 9.1 MG/DL (8.5-10.1); CARBON DIOXIDE LEVEL 28 MEQ/L (21-32); CHLORIDE LEVEL 107 MEQ/L (98-107); COMPLEMENT C3 131 MG/DL (90-180); COMPLEMENT C4 42 MG/DL (10-40); CREATININE FOR GFR 1.04 MG/DL (0.55-1.30); GLOMERULAR FILTRATION RATE > 60.0 (>58); GLUCOSE, FASTING 92 MG/DL (70-100); POTASSIUM SERUM 4.3 MEQ/L (3.5-5.1); SODIUM LEVEL 140 MEQ/L (136-145); TOTAL PROTEIN 6.6 GM/DL (6.4-8.2)
[2019-06-10 11:29] LABS: TOTAL PROTEIN,RANDOM URINE 125.9 MG/DL (0.0-12.0)
[2019-06-10 11:31] LABS: ERYTHROCYTE SEDIMENTATION RATE 34 mm/hr (0-20)
[2019-06-10 12:06] LABS: DRVV SCREEN 39.6 SEC
[2019-06-10 13:28] LABS: CREATININE,RANDOM URINE 83.5 MG/DL
[2019-06-13 15:47] LABS: ANA (HEP2) Negative (.); ANTI DS-DNA AB <1:10 titer (.); BETA-2 GLYCOPROTEIN I ABY IGA <9 (0-25); BETA-2 GLYCOPROTEIN I ABY IGG <9 (0-20); BETA-2 GLYCOPROTEIN I ABY IGM <9 (0-32); CARDIOLIPIN IGA ANTIBODY <9 APL U/mL (0-11); CARDIOLIPIN IGG ANTIBODY <9 GPL U/mL (0-14); CARDIOLIPIN IGM ANTIBODY <9 MPL U/mL (0-12); RNP ANTIBODY < 0.2 AI (0.0-0.9); SMITHS ANTIBODY < 0.2 AI (0.0-0.9); SSA SJOGRENS A <0.2 AI (0.0-0.9); SSB SJOGRENS B <0.2 AI (0.0-0.9)
== END ==
LOC: M LAB 09:25
PROVIDERS: ATTEND Internal Medicine Rheumatology
DX: M32.9 Systemic lupus erythematosus, unspecified (principal)

== ENCOUNTER 2019-06-17 09:47 | Emergency (ER) | payer MEDICARE, MEDICAID ==
[~2019-06-17] VITALS: Ht 170.2 cm; Wt 102.6 kg
[~2019-06-17 09:47] MED LIST changes: -FLOM0.4C39 PO; -[UNRECOGNIZED DRUG - CODE] PO
[2019-06-17] MEDS ORDERED: ACETAMINOPHEN *IV* 1,000 MG in APPROPRIATE DILUENT 1 EA IV ONE (10:15)
[2019-06-17] MEDS ORDERED: NS 1,000 ML IV ONE (10:15)
[2019-06-17] MEDS ORDERED: ONDANSETRON 4MG/2ML VIAL (J2405) IV ONE (10:15)
[2019-06-17 10:28] LABS: BASO % 0.4 % (0.0-1.0); EOS # 0.1 10^3/uL (0.0-0.50); HEMATOCRIT 41.4 % (36.0-47.0); HEMOGLOBIN 14.1 g/dl (12.0-15.5); LYMPH # 1.6 10^3/uL (1.5-4.5); LYMPH % 19.2 % (24.0-44.0); MEAN CORPUSCULAR HEMOGLOBIN 30.9 pg (27.0-33.0); MEAN CORPUSCULAR HGB CONC 34.1 g/dl (32.0-36.5); MEAN CORPUSCULAR VOLUME 90.8 fl (80.0-96.0); MONO # 0.6 10^3/uL (0.0-0.8); MONO % 7.5 % (0.0-5.0); NEUTROPHILS # 5.9 10^3/uL (1.8-7.7); NEUTROPHILS % 71.7 % (36.0-66.0); PLATELET COUNT, AUTOMATED 315 10^3/uL (150-450); RED BLOOD COUNT 4.56 10^6/uL (4.00-5.40); WHITE BLOOD COUNT 8.3 10^3/uL (4.0-10.0)
[2019-06-17 11:00] LABS: ALBUMIN 3.5 GM/DL (3.2-5.2); ALT/SGPT 19 U/L (12-78); BILIRUBIN,DIRECT < 0.1 MG/DL (0.0-0.2); BILIRUBIN,TOTAL 0.3 MG/DL (0.2-1.0); BLOOD UREA NITROGEN 14 MG/DL (7-18); CALCIUM LEVEL 9.1 MG/DL (8.5-10.1); CARBON DIOXIDE LEVEL 27 MEQ/L (21-32); CHLORIDE LEVEL 106 MEQ/L (98-107); CREATININE FOR GFR 1.24 MG/DL (0.55-1.30); GLUCOSE, FASTING 112 MG/DL (70-100); LIPASE 124 U/L (73-393); SODIUM LEVEL 140 MEQ/L (136-145); TOTAL PROTEIN 7.3 GM/DL (6.4-8.2)
--- NOTE | 2019-06-17 11:36 | REP ---
REASON: Right flank pain. COMPARISON: 05/15/2018. Right kidney measures 4.8 x 9.7 x 4.6 cm. The patient is status post left nephrectomy. The right renal cortical echoes are unchanged. Cortical medullary differentiation is unchanged. There are no cystic or solid masses. There is no evidence of hydronephrosis. Limited evaluation of the urinary bladder shows no abnormalities. IMPRESSION: No significant change from 05/15/2018. Findings as described above. Electronically Signed by Edgar Ferraro DO 06/17/2019 12:02 P
[2019-06-17] MEDS ORDERED: MORPHINE 4 MG/ML 1ML VIAL/SYRINGE (J2270) IV ONE (14:30)
[2019-06-17] MEDS ORDERED: TAMSULOSIN 0.4 MG CAP PO ONE (14:45)
[2019-06-17] MEDS ORDERED: [UNRECOGNIZED DRUG - CODE] PO (14:53)
[2019-06-17] MEDS ORDERED: FLOM0.4C39 PO (14:53)
[2019-06-17 15:11] VITALS: BP 131/79
--- NOTE | 2019-06-17 17:33 | REP ---
REASON FOR EXAM: Right flank pain. COMPARISON EXAM: 04/28/2019 which showed nonobstructing renal calculi on the right. The lung bases are clear and unchanged. Limited evaluation of the solid intraabdominal organs and gallbladder show no gross abnormalities or significant changes from the prior exam. Evaluation of the pancreas and adrenals glands showed no gross abnormalities or significant changes from the prior exam. The patient is status-post left nephrectomy. There is mild to moderate right sided hydronephrosis and hydroureter. The hydroureter can be followed distally to the left of the mid pelvis where there is a 7 mm sized ureterolith causing the findings. This resides approximately 5-6 cm proximal to the ureterovesical junction. There is a 4 mm sized calcification seen in the inferior pole of the right kidney. Which is not causing obstructive phenomenon and that calculus is unchanged from the prior exam. There are no urinary bladder calcifications. Limited evaluation of the bowel loops and their mesenteries show no gross abnormalities or significant changes from the prior exam. Limited evaluation of the abdominal and paraaortic regions showed no gross abnormalities or significant changes from the prior exam. There is mild right perinephric stranding. The osseous structures are stable and intact. IMPRESSION: 7 mm sized distal right ureterolith with resultant findings as described above. Electronically Signed by Edgar Ferraro DO 06/18/2019 09:31 A
== END 2019-06-17 15:35 | disposition home or self-care (01) ==
LOC: M ED 09:47
DX: N20.1 Calculus of ureter (principal); E28.2 Polycystic ovarian syndrome; F33.9 Major depressive disorder, recurrent, unspecified; F41.9 Anxiety disorder, unspecified; M32.9 Systemic lupus erythematosus, unspecified; M79.7 Fibromyalgia; Z88.0 Allergy status to penicillin; Z88.1 Allergy status to other antibiotic agents; Z88.8 Allergy status to other drugs, medicaments and biological substances
CPT/HCPCS: 36415; 74176; 76775; 80048; 80076; 81001; 83690; 85025; 87086; 96361; 96365; 96366; 96375; 99284; J0131; J2270; J2405

== ENCOUNTER 2019-07-12 14:08 | Emergency (ER) | payer MEDICARE, MEDICAID ==
[~2019-07-12] VITALS: Ht 170.2 cm; Wt 102.2 kg
[~2019-07-12 14:08] MED LIST changes: +FLOM0.4C39 PO; +[UNRECOGNIZED DRUG - CODE] PO
[2019-07-12 14:50] VITALS: BP 140/90
[2019-07-12] MEDS ORDERED: LIDOCAINE 1% MDV 20ML VIAL SC ONE (16:45)
== END 2019-07-12 17:28 | disposition home or self-care (01) ==
LOC: M ED 14:08
DX: T81.31XA Disruption of external operation (surgical) wound, not elsewhere classified, initial encounter (principal); Z87.39 Personal history of other diseases of the musculoskeletal system and connective tissue; M32.9 Systemic lupus erythematosus, unspecified; M79.7 Fibromyalgia; Z87.891 Personal history of nicotine dependence; Z79.899 Other long term (current) drug therapy; Z88.0 Allergy status to penicillin; Z88.1 Allergy status to other antibiotic agents; Z88.2 Allergy status to sulfonamides; Z88.5 Allergy status to narcotic agent; Z88.8 Allergy status to other drugs, medicaments and biological substances

== ENCOUNTER → 2019-10-06 | Outpatient (REF) | payer MEDICARE, MEDICAID ==
[2019-10-06 19:36] LABS: TOTAL PROTEIN 24 HOUR URINE 1486.8 MG/24HR (50-150); URINE TOTAL PROTEIN 247.8 MG/DL (0-12)
== END ==
LOC: M LAB REF 17:56
PROVIDERS: ATTEND Internal Medicine Nephrology
DX: Z90.5 Acquired absence of kidney (principal); N18.3 Chronic kidney disease, stage 3 (moderate); R80.9 Proteinuria, unspecified

== ENCOUNTER → 2019-10-09 | Outpatient (CLI) | payer MEDICARE, MEDICAID ==
--- NOTE | 2019-10-09 16:28 | REP ---
RENAL NUCLEAR SCAN WITH FLOW AND FUNCTION: Following the intravenous administration of 8.7 mCi of technetium 99m MAG3 images of the right kidney are performed in the posterior projection. There is absence of the left kidney. There is diffuse cortical uptake. There is mild dilatation the pelvicaliceal system and right ureter. This does not persist after voiding. There is relatively prompt perfusion. Mildly delayed peak is noted at 5 minutes. Renal function curve is mildly shallow in its downward slope. T-1/2 value is 17.9 minutes. There is very mild postvoid residual in the urinary bladder after voiding. IMPRESSION: Left kidney is absent. Right kidney demonstrates mild pelvocaliectasis and the right ureter is mildly dilated. This does not persist after voiding. There is mildly compromised renal function of the right kidney. Electronically Signed by Vargas Kinsey MD 10/09/2019 04:57 P
== END ==
LOC: M RAD 13:22
PROVIDERS: ATTEND Internal Medicine Nephrology
DX: Z90.5 Acquired absence of kidney (principal); Z87.440 Personal history of urinary (tract) infections
CPT/HCPCS: 78707; A9562

== ENCOUNTER → 2020-01-20 | Outpatient (REF) | payer MEDICARE, MEDICAID | LOC: M LAB REF 13:08 | PROVIDERS: ATTEND Nurse Practitioner Family | DX: Z87.440 Personal history of urinary (tract) infections (principal); N39.0 Urinary tract infection, site not specified ==

== ENCOUNTER → 2020-01-21 | Outpatient (CLI) | payer MEDICARE, MEDICAID ==
--- NOTE | 2020-01-21 08:29 | REP ---
CT ABDOMEN AND PELVIS WITHOUT IV OR ORAL CONTRAST: HISTORY: Kidney calculus. Comparison CT study June 17, 2019. CT FINDINGS: Preliminary digital natural science curator radiograph demonstrates dorsal column stimulator device with the leads in the lower thoracic spine. Normal bowel gas pattern. The lung bases are clear on axial CT images. No focal hepatic or splenic lesion is seen. There is cortical scarring at the lower pole right kidney unchanged from comparison study. There is a small intrarenal calculus in the lower pole at the level of the scarring 3 mm in diameter unchanged. There is no evidence of hydronephrosis. No other intrarenal calculus is observed. The left kidney is surgically absent. The previously noted right ureteral calculus is no longer apparent. No bladder calculus is seen. No uterine or ovarian abnormality is observed. Small and large bowel loops are unremarkable. The appendix is surgically absent. No bony abnormality is seen. IMPRESSION: There is an intrarenal calculus in the lower pole right kidney at the levels of some focal parenchymal scarring in the lower pole right kidney. No hydronephrosis is seen. No other calculus is observed in the urinary tract. Left kidney and the appendix are surgically absent. Electronically Signed by Mal James MD 01/21/2020 09:20 A
== END ==
LOC: M RAD 07:06
PROVIDERS: ATTEND Nurse Practitioner Family
DX: N20.0 Calculus of kidney (principal); Z90.5 Acquired absence of kidney

== ENCOUNTER → 2020-02-05 | Outpatient (CLI) | payer MEDICARE, MEDICAID ==
[2020-02-05 16:50] LABS: RHEUMATOID FACTOR QUANT < 10.0 IU/ML (<15.0); TOTAL PROTEIN 6.9 GM/DL (6.4-8.2)
== END ==
LOC: M LAB 15:40
PROVIDERS: ATTEND Physician Assistant
DX: R76.8 Other specified abnormal immunological findings in serum (principal)

== ENCOUNTER → 2020-04-22 | Outpatient (CLI) | payer MEDICARE, MEDICAID ==
[2020-04-23 17:18] LABS: LUTEINIZING HORMONE 4.9 mIU/mL
== END ==
LOC: M LAB 14:08
DX: R10.2 Pelvic and perineal pain (principal)

== ENCOUNTER → 2020-05-10 | Outpatient (CLI) | payer MEDICARE, MEDICAID ==
[2020-05-11 09:19] LABS: CA 125 9.1 U/ML (<30.2)
== END ==
LOC: M LAB 12:49
PROVIDERS: ATTEND Obstetrics & Gynecology
DX: D39.11 Neoplasm of uncertain behavior of right ovary (principal); Z79.899 Other long term (current) drug therapy

== ENCOUNTER → 2020-06-04 | Outpatient (REF) | payer MEDICARE, MEDICAID ==
[2020-08-01 15:51] LABS: APPEARANCE, URINE HAZY (CLEAR); BACTERIA, URINE AUTO NEGATIVE (NEGATIVE); BILIRUBIN, URINE AUTO NEGATIVE (NEGATIVE); BLOOD, URINE BLOOD NEGATIVE (NEGATIVE); COLOR, URINE YELLOW (YELLOW); GLUCOSE, URINE (UA) AUTO NEGATIVE (NEGATIVE); KETONE, URINE AUTO NEGATIVE (NEGATIVE); LEUKOCYTE ESTERASE, URINE AUTO NEGATIVE (NEGATIVE); NITRITE, URINE AUTO NEGATIVE (NEGATIVE); PROTEIN, URINE AUTO 2+ mg/dL (NEGATIVE); RBC, URINE AUTO 1 /HPF (0-3); SPECIFIC GRAVITY URINE AUTO 1.018 (1.002-1.035); SQUAMOUS EPITHELIAL CELL UR AU 2 /HPF (0-6); UROBILINOGEN, URINE AUTO 0.2 mg/dL (0.0-2.0); WBC, URINE AUTO 2 /HPF (0-3)
== END ==
LOC: M LAB REF 13:43
PROVIDERS: ATTEND Nurse Practitioner Family
DX: N39.0 Urinary tract infection, site not specified (principal)

== ENCOUNTER 2020-06-10 13:47 | Outpatient (CLI) | payer MEDICARE, MEDICAID ==
[2020-06-10] MEDS ORDERED: ERTAPENEM 1GM VIAL(INVanz) (J1335 PER 500MG) As Ordered ONE (14:26)
[2020-06-10] MEDS ORDERED: ERTAPENEM 1GM VIAL(INVanz) (J1335 PER 500MG) ONE (14:26)
== END 2020-06-10 15:55 | disposition home or self-care (01) ==
LOC: M INFU 13:47
PROVIDERS: ATTEND Internal Medicine Nephrology
DX: N39.0 Urinary tract infection, site not specified (principal)
CPT/HCPCS: 96365; J1335; J1642

== ENCOUNTER 2020-06-11 13:54 | Outpatient (CLI) | payer MEDICARE, MEDICAID ==
[2020-06-11] MEDS ORDERED: ERTAPENEM 1GM VIAL(INVanz) (J1335 PER 500MG) ONE (13:55)
== END 2020-06-11 15:10 ==
LOC: M INFU 13:54 → M LAB 13:54 → M INFU 15:10
PROVIDERS: ATTEND Nurse Practitioner Family
DX: N39.0 Urinary tract infection, site not specified (principal)
CPT/HCPCS: 96365; J1335

== ENCOUNTER 2020-06-11 21:01 | Emergency (ER) | payer OTHER, MEDICARE ==
[~2020-06-11 21:01] MED LIST changes: +ACETAMINOPHEN 500 MG TAB As Ordered ONE
== END 2020-06-11 22:15 | disposition home or self-care (01) ==
LOC: M ED 21:01
DX: S61.402A Unspecified open wound of left hand, initial encounter (principal); S60.222A Contusion of left hand, initial encounter; V49.40XA Driver injured in collision with unspecified motor vehicles in traffic accident, initial encounter; Y92.9 Unspecified place or not applicable; Y93.9 Activity, unspecified; Y99.9 Unspecified external cause status; Z79.899 Other long term (current) drug therapy; Z79.890 Hormone replacement therapy; Z88.1 Allergy status to other antibiotic agents; Z88.8 Allergy status to other drugs, medicaments and biological substances; Z88.5 Allergy status to narcotic agent; Z88.0 Allergy status to penicillin

== ENCOUNTER → 2020-06-12 | Outpatient (CLI) | payer MEDICARE, MEDICAID ==
[~2020-06-12] MED LIST changes: -ACETAMINOPHEN 500 MG TAB As Ordered ONE; +ERTAPENEM 1GM VIAL(INVanz) (J1335 PER 500MG) ONE
== END ==
LOC: M INFU 06-11 08:00
PROVIDERS: ATTEND Internal Medicine Nephrology
DX: N39.0 Urinary tract infection, site not specified (principal); M32.9 Systemic lupus erythematosus, unspecified; N18.2 Chronic kidney disease, stage 2 (mild)
CPT/HCPCS: 96374; J1335; J1642

== ENCOUNTER → 2020-06-13 | Outpatient (CLI) | payer MEDICARE, MEDICAID | LOC: M INFU 06-12 09:52 | PROVIDERS: ATTEND Internal Medicine Nephrology | DX: N39.0 Urinary tract infection, site not specified (principal) | CPT/HCPCS: 96374; J1335; J1642 ==

== ENCOUNTER 2020-06-14 14:00 | Outpatient (CLI) | payer MEDICARE, MEDICAID ==
[~2020-06-14 14:00] MED LIST changes: +ERTAPENEM 1GM VIAL(INVanz) (J1335 PER 500MG) As Ordered ONE
== END 2020-06-14 14:45 | disposition home or self-care (01) ==
LOC: M INFU 14:00
PROVIDERS: ATTEND Internal Medicine Nephrology
DX: N39.0 Urinary tract infection, site not specified (principal)
CPT/HCPCS: 96365; J1335; J1642

== ENCOUNTER 2020-06-15 14:10 | Outpatient (CLI) | payer MEDICARE, MEDICAID | END 2020-06-15 15:00 | disposition home or self-care (01) | LOC: M INFU 14:10 | PROVIDERS: ATTEND Internal Medicine Nephrology | DX: N39.0 Urinary tract infection, site not specified (principal); N18.2 Chronic kidney disease, stage 2 (mild); M32.9 Systemic lupus erythematosus, unspecified | CPT/HCPCS: 96365; J1335; J1642 ==

== ENCOUNTER 2020-06-16 14:00 | Outpatient (CLI) | payer MEDICARE, MEDICAID ==
[~2020-06-16 14:00] MED LIST changes: -ERTAPENEM 1GM VIAL(INVanz) (J1335 PER 500MG) As Ordered ONE; -ERTAPENEM 1GM VIAL(INVanz) (J1335 PER 500MG) ONE
[2020-06-16] MEDS ORDERED: ERTAPENEM 1GM VIAL(INVanz) (J1335 PER 500MG) ONE (14:15)
[2020-06-16] MEDS ORDERED: ERTAPENEM 1GM VIAL(INVanz) (J1335 PER 500MG) As Ordered ONE (14:15)
== END 2020-06-16 14:55 | disposition home or self-care (01) ==
LOC: M INFU 14:00
PROVIDERS: ATTEND Internal Medicine Nephrology
DX: N39.0 Urinary tract infection, site not specified (principal); N18.2 Chronic kidney disease, stage 2 (mild)
CPT/HCPCS: 96365; J1335; J1642

== ENCOUNTER 2020-06-17 14:00 | Outpatient (CLI) | payer MEDICARE, MEDICAID ==
[~2020-06-17 14:00] MED LIST changes: +ERTAPENEM 1GM VIAL(INVanz) (J1335 PER 500MG) As Ordered ONE; +ERTAPENEM 1GM VIAL(INVanz) (J1335 PER 500MG) ONE
== END 2020-06-17 14:15 | disposition home or self-care (01) ==
LOC: M INFU 14:00
PROVIDERS: ATTEND Internal Medicine Nephrology
DX: N39.0 Urinary tract infection, site not specified (principal); N18.2 Chronic kidney disease, stage 2 (mild); M32.9 Systemic lupus erythematosus, unspecified
CPT/HCPCS: 96365; J1335; J1642

== ENCOUNTER 2020-06-18 14:00 | Outpatient (CLI) | payer MEDICARE, MEDICAID ==
[~2020-06-18 14:00] MED LIST changes: -ERTAPENEM 1GM VIAL(INVanz) (J1335 PER 500MG) As Ordered ONE; -ERTAPENEM 1GM VIAL(INVanz) (J1335 PER 500MG) ONE
[2020-06-18] MEDS ORDERED: ERTAPENEM 1GM VIAL(INVanz) (J1335 PER 500MG) ONE (14:24)
[2020-06-18] MEDS ORDERED: ERTAPENEM 1GM VIAL(INVanz) (J1335 PER 500MG) As Ordered ONE (14:24)
== END 2020-06-18 16:00 | disposition home or self-care (01) ==
LOC: M INFU 14:00
PROVIDERS: ATTEND Internal Medicine Nephrology
DX: N39.0 Urinary tract infection, site not specified (principal); M32.9 Systemic lupus erythematosus, unspecified; N18.2 Chronic kidney disease, stage 2 (mild)
CPT/HCPCS: 96365; J1335; J1642

== ENCOUNTER → 2020-06-19 | Outpatient (CLI) | payer MEDICARE, MEDICAID ==
[~2020-06-19] MED LIST changes: +ERTAPENEM 1GM VIAL(INVanz) (J1335 PER 500MG) ONE
== END ==
LOC: M INFU 06-15 13:50
PROVIDERS: ATTEND Internal Medicine Nephrology
DX: N39.0 Urinary tract infection, site not specified (principal)
CPT/HCPCS: 96365; J1335; J1642

== ENCOUNTER → 2020-06-20 | Outpatient (CLI) | payer MEDICARE, MEDICAID | LOC: M INFU 14:05 | PROVIDERS: ATTEND Nurse Practitioner Family | DX: N39.0 Urinary tract infection, site not specified (principal); M32.9 Systemic lupus erythematosus, unspecified | CPT/HCPCS: 96365; J1335; J1642 ==

== ENCOUNTER → 2020-07-06 | Outpatient (CLI) | payer OTHER ==
[~2020-07-06] MED LIST changes: -ERTAPENEM 1GM VIAL(INVanz) (J1335 PER 500MG) ONE
[2020-07-06 15:53] LABS: HEMATOCRIT 38.5 % (36.0-47.0); HEMOGLOBIN 12.5 g/dl (12.0-15.5); MEAN CORPUSCULAR HEMOGLOBIN 30.4 pg (27.0-33.0); MEAN CORPUSCULAR HGB CONC 32.5 g/dl (32.0-36.5); MEAN CORPUSCULAR VOLUME 93.7 fl (80.0-96.0); PLATELET COUNT, AUTOMATED 363 10^3/uL (150-450); RED BLOOD COUNT 4.11 10^6/uL (4.00-5.40); WHITE BLOOD COUNT 8.5 10^3/uL (4.0-10.0)
[2020-07-06 16:25] LABS: ERYTHROCYTE SEDIMENTATION RATE 35 mm/hr (0-20)
--- NOTE | 2020-08-03 14:13 | REPPI ---
LEFT HAND SERIES: CLINICAL: Pain. TECHNIQUE: AP, lateral, bilateral oblique views of the left hand. FINDINGS: The osseous structures and joint spaces are intact and age appropriate. No obvious acute fracture or dislocation. No subcutaneous emphysema or foreign body. IMPRESSION: No obvious acute fracture or dislocation. MTDD
== END ==
LOC: M PLAIMG 14:13
PROVIDERS: ATTEND Family Medicine
DX: M79.642 Pain in left hand (principal)

== ENCOUNTER 2021-04-02 02:03 | Inpatient (IN) | payer MEDICARE, MEDICAID ==
[~2021-04-02] VITALS: Ht 170.2 cm; Wt 90.4 kg
[~2021-04-02 02:03] MED LIST changes: -ZYLO300T6; +ZYLO300T6 PO
[2021-04-02] MEDS ORDERED: ESTR1TAB PO (02:15)
[2021-04-02] MEDS ORDERED: PLAQ200T4 PO (02:15)
[2021-04-02] MEDS ORDERED: METH2.5T48 PO (02:15)
[2021-04-02] MEDS ORDERED: ACETAMINOPHEN TAB 650MG DOSE (2X325MG) PO ONE (02:40)
[2021-04-02 02:55] LABS: BASO % 0.1 % (0.0-1.0); HEMATOCRIT 39.6 % (36.0-47.0); HEMOGLOBIN 13.1 g/dl (12.0-15.5); LYMPH # 0.6 10^3/uL (1.5-5.0); LYMPH % 7.6 % (24.0-44.0); MEAN CORPUSCULAR HEMOGLOBIN 29.4 pg (27.0-33.0); MEAN CORPUSCULAR HGB CONC 33.1 g/dl (32.0-36.5); MEAN CORPUSCULAR VOLUME 88.8 fl (80.0-96.0); MONO % 12.1 % (2.0-8.0); NEUTROPHILS # 6.6 10^3/uL (1.5-8.5); PLATELET COUNT, AUTOMATED 347 10^3/uL (150-450); RED BLOOD COUNT 4.46 10^6/uL (4.00-5.40); WHITE BLOOD COUNT 8.3 10^3/uL (4.0-10.0)
[2021-04-02 03:24] LABS: ALBUMIN 2.4 GM/DL (3.2-5.2); BILIRUBIN,DIRECT 0.2 MG/DL (0.0-0.2); BILIRUBIN,TOTAL 0.5 MG/DL (0.2-1.0); CALCIUM LEVEL 8.3 MG/DL (8.5-10.1); CREATININE FOR GFR 1.09 MG/DL (0.55-1.30); GLOMERULAR FILTRATION RATE 57.5 (>58); POTASSIUM SERUM 4.3 MEQ/L (3.5-5.1); TOTAL PROTEIN 6.4 GM/DL (6.4-8.2)
[2021-04-02 03:32] LABS: RSV AMPLIFICATION NEGATIVE (NEGATIVE)
--- NOTE | 2021-04-02 03:44 | REPVR ---
PROCEDURE INFORMATION: Exam: XR Chest Exam date and time: 04/02/2021 3:11 AM Age: 46 years old Clinical indication: Other: Dyspnea/cough TECHNIQUE: Imaging protocol: XR of the chest. Views: 1 view. COMPARISON: No relevant prior studies available. FINDINGS: Lungs: Patchy left greater than right lung infiltrates. Pleural spaces: Unremarkable. No pleural effusion. No pneumothorax. Heart/Mediastinum: Unremarkable. No cardiomegaly. Bones/joints: Unremarkable. IMPRESSION: Patchy left greater than right lung infiltrates. Electronically signed by: Star Nichols On 04/02/2021 03:43:49 AM
[2021-04-02] MEDS ORDERED: dexameTHASONE 20MG/5ML VIAL (J1100 PER 1MG) IV ONE (04:35)
[2021-04-02] MEDS: COMBIVENT RESPIMAT 100-20MCG INHALER 4GM INH SCH ×3 (04:56→06:06)
[2021-04-02] MEDS ORDERED: ESTR2TAB2 PO (05:53)
[2021-04-02] MEDS ORDERED: ACETAMINOPHEN TAB 650MG DOSE (2X325MG) PO PRN (06:50)
[2021-04-02] MEDS ORDERED: MOM 30ML SUSPENSION UDC PO PRN (06:50)
[2021-04-02] MEDS ORDERED: MAALOX 30 ML SUSP *UDC PO PRN (06:50)
--- NOTE | 2021-04-02 07:09 | HPEPDOC ---
[facility] Medical History & Physical Date of Admission April 02, 2021 Date of Service: April 02, 2021 History and Physical CHIEF COMPLAINT: shortness of breath HISTORY OF PRESENT ILLNESS: 46 yo F with a hx of SLE, fibromyalgia, gout solitary kidney, presents to ER with shortness of breath, non productive cough and fevers since 03/20/21. She received one dose of moderna vaccine for Covid-19 on 03/19/21. Her fiance has been experiencing similar symptoms and was actually in the ER at the same time he was discharged this morning. On arrival to the ED, patient's temperature was 101.2. Pulse 102. Blood pressure 131/92. Pulse ox 92% on room air, eventually declining requiring to the low 80s requiring 2 L of oxygen to maintain saturation above 92%. Patient has central chest discomfort from copious coughing. Denies palpitations, left-sided arm pain, jaw pain, left- sided chest pain, no diarrhea, no vomiting. Patient has a positive for Covid nicotine in the ER. Lab work reviewed charts within normal limits. Creatinine 1.09. Lactic acid 1.0. Pathology markers are ordered on admission. She will be admitted to hospitalist service for management of acute hypoxic respiratory failure secondary to Covid 19. PAST MEDICAL HISTORY: Frequent UTIs. Lupus Gout. Fibromyalgia. 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 Knee stimulator. Hysterectomy with bilateral salpingoopherectomy Dorsal column stimulator. Colonoscopy times two. Endoscopy times two. Right knee arthroscopy 2003. Infusaport placement. Infusaport removal. SOCIAL HISTORY: quit smoking 10 years ago no etoh usr no illicit drug use FAMILY HISTORY: Reviewed with patient, non contributory ALLERGIES: Please see below. REVIEW OF SYSTEMS: 10 point ROS completed, relevant findings are noted in the HPI HOME MEDICATIONS: Please see below. PHYSICAL EXAMINATION: VITAL SIGNS: please see below General: NAD, comfortable HEENT: PERRLA, EOMI, sclerae clear Neck: supple, normal ROM, no JVD Respiratory: good inspiratory effort. Mild crackles at bilateral lung bases. CVS: RRR, normal S1, S2, no murmurs Abdo: soft, no masses, no hepatosplenomegaly, BS+, no rebound tenderness Extremities: no edema, pulses 2+ MSK: no joint deformities, normal ROM Neuro: no focal neuro deficits, moving all 4 extremities, CN2-12 intact. Strength 5/5 in all 4 extremities. No nystagmus. Psych: calm, cooperative, AAO x 3 LABORATORY DATA: See below. IMAGING: CXR (04/02/21): FINDINGS: Lungs: Patchy left greater than right lung infiltrates. Pleural spaces: Unremarkable. No pleural effusion. No pneumothorax. Heart/Mediastinum: Unremarkable. No cardiomegaly. Bones/joints: Unremarkable. IMPRESSION: Patchy left greater than right lung infiltrates. MICROBIOLOGY: Please see below. ASSESSMENT: 46-year-old female with a history of lupus, fibromyalgia, solitary kidney, presented with shortness of breath and hypoxia secondary to Covid 19 infection. Patiently admitted for management of acute respiratory failure with hypoxia secondary to Covid 19 viral infection. PLAN: Acute hypoxic respiratory failure secondary to Covid 19 infection. - Patient has no leukocytosis, but the fever has size 101.5. Lactic acid 1.0. - Has dry cough without production of sputum. - received 10 mg IV dexamethasone in Er. - Admitted to Covid floor - Patient is still within remdesivir window. Start remdesivir and dexamethasone 6 mg IV daily - Patient takes methotrexate and Plaquenil at home for SLE. We will hold Plaquenil while she is receiving aggressive year due to newly released data from the FDA regarding reduced efficacy of Remdesevir with concurrent use of Plaquenil. - Check inflammatory markers - Check procal - f/u blood cultures - Tylenol for fevers - Combivent for shortness of breath SLE - Follows with rheumatology recently seen - Hold Plaquenil while on aggressive year - Received methotrexate, last dose on 03/30/20 one once weekly Gout - Continue allopurinol Menopause - s/p hysterectomy wit bilateral salpingoopherectomy - takes estradiol for symptom control from menopause - hold estradiol due to hypercoagulable states from COVID-19 DVT ppx: heparin. SCDs. TEDs. Vital Signs Vital Signs Date Time Temp Pulse Resp B/P (MAP) Pulse Ox O2 Delivery O2 Flow Rate FiO2 04/02/21 04:15 99.4 76 20 115/72 (86) 96 04/02/21 02:48 Room Air 1.0 Laboratory Data Labs 24H Laboratory Tests 2 04/02/21 02:46: Immature Granulocyte % (Auto) 0.2, Neutrophils (%) (Auto) 80.0H, Lymphocytes (%) (Auto) 7.6L, Monocytes (%) (Auto) 12.1H, Eosinophils (%) (Auto) 0.0, Basophils (%) (Auto) 0.1, Neutrophils # (Auto) 6.6, Lymphocytes # (Auto) 0.6L, Monocytes # (Auto) 1.0H, Eosinophils # (Auto) 0.0, Basophils # (Auto) 0.0, Nucleated Red Blood Cells % (auto) 0.0, Anion Gap 9, Glomerular Filtration Rate 57.5L, Lactic Acid Level 1.0, Calcium Level 8.3L, Total Bilirubin 0.5, Direct Bilirubin 0.2, Aspartate Amino Transf (AST/SGOT) 53H, Alanine Aminotransferase (ALT/SGPT) 28, Alkaline Phosphatase 125H, Total Protein 6.4, Albumin 2.4L, Albumin/Globulin Ratio 0.6L, Coronavirus (COVID-19)(PCR) POSITIVEA, Influenza Type A (RT-PCR) NEGATIVE, Influenza Type B (RT-PCR) NEGATIVE, Respiratory Syncytial Virus (PCR) NEGATIVE CBC/BMP Laboratory Tests 04/02/21 02:46 Microbiology Microbiology 04/02/21 Blood Culture, Received Pending Home Medications Scheduled Allopurinol (Zyloprim) 300 Mg Tablet, 300 MG PO QHS Estradiol (Estradiol) 2 Mg Tablet, 2 MG PO QHS Hydroxychloroquine Sulfate (Plaquenil) 200 Mg Tablet, 200 MG PO BID Methotrexate Sodium (Methotrexate) 2.5 Mg Tablet, 10 MG PO QWEEK sunday Allergies Coded Allergies: Quinolones (Verified Allergy, Severe, cipro, levaquin - hives, breathing problem, 04/28/19) cephalexin (Verified Allergy, Severe, hives, breathing problem, 04/28/19) ciprofloxacin (Verified Allergy, Severe, hives, breathing problem, 04/28/19) diclofenac (Verified Allergy, Severe, hives, breathing problem, 04/28/19) erythromycin base (Verified Allergy, Severe, N/V, hives, breathing problem, 04/28/19) hyoscyamine (Verified Allergy, Severe, hives, breathing problem, 04/28/19) indomethacin (Verified Allergy, Severe, anaphylaxis, 04/28/19) levofloxacin (Verified Allergy, Severe, hives, breathing problem, 04/28/19) methenamine (Verified Allergy, Severe, hives, breathing problem, 04/28/19) nitrofurantoin (Verified Allergy, Severe, macrobid - hives, breathing problem, 04/28/19) rofecoxib (Verified Allergy, Severe, hives, breathing problem, 04/28/19) tramadol (Verified Allergy, Severe, hives, breathing problem, 04/28/19) Penicillins (Verified Allergy, Intermediate, augmentin, ampicillin- hives, 04/28/19) amoxicillin (Verified Allergy, Intermediate, hives, 04/28/19) ampicillin (Verified Allergy, Intermediate, hives, 04/28/19) belladonna alkaloids (Verified Allergy, Intermediate, hives, 04/28/19) clavulanic acid (Verified Allergy, Intermediate, hives, 04/28/19) codeine (Verified Allergy, Intermediate, hives, 04/28/19) doxycycline (Verified Allergy, Intermediate, hives, 04/28/19) ethinyl estradiol (Verified Allergy, Intermediate, hives, 04/28/19) fosfomycin (Verified Allergy, Intermediate, hives, 04/28/19) hydrocodone (Verified Allergy, Intermediate, hives, 04/28/19) norelgestromin (Verified Allergy, Intermediate, hives, 04/28/19) norgestimate (Verified Allergy, Intermediate, hives, 04/28/19) phenazopyridine (Verified Allergy, Intermediate, hives, 04/28/19) propoxyphene (Verified Allergy, Intermediate, darvocet - hives, 04/28/19) sulfamethoxazole (Verified Allergy, Intermediate, hives, 04/28/19) trimethoprim (Verified Allergy, Intermediate, hives, 04/28/19) dronabinol (Verified Allergy, Unknown, 04/28/19) methylene blue (Verified Allergy, Unknown, 04/28/19) midazolam (Verified Allergy, Unknown, 04/28/19) salicylates (Verified Allergy, Unknown, 04/28/19) MURIEL BRADLEY MD April 02, 2021 07:09
[2021-04-02] MEDS ORDERED: COMBIVENT RESPIMAT 100-20MCG INHALER 4GM INH PRN (07:15)
[2021-04-02] MEDS: DOCUSATE SODIUM 100MG CAPSULE PO SCH ×2 (09:00→20:28)
[2021-04-02 09:05] VITALS: BP 128/68
[2021-04-02] MEDS ORDERED: REMDESIVIR 200 MG in NS 250 ML IV ONE (10:00)
[2021-04-02 10:13] LABS: INR 0.96
[2021-04-02 10:14] LABS: PARTIAL THROMBOPLASTIN TIME 30.5 SECONDS (24.2-38.5)
[2021-04-02 10:16] LABS: D-DIMER QUANT 1580.86 ng/ml (<500)
[2021-04-02 10:26] LABS: C REACTIVE PROTEIN QUANTITATIV 8.12 MG/DL (0.00-0.30); CPK CREATINE PHOSPHOKINASE 95 U/L (26-192); FERRITIN 699 NG/ML (8-252); LDH LACTATE DEHYDROGENASE 309 U/L (84-246); TROPONIN I < 0.02 NG/ML (< 0.10)
[2021-04-02] MEDS ORDERED: SODIUM CHLORIDE 0.9% INJ 10 ML SYR IV ONE (12:00)
[2021-04-02] MEDS: HEPARIN SOD (PORCINE) 5000UNITS/ML 1ML VIAL/SYRINGE SC SCH ×2 (13:24→21:29)
--- NOTE | 2021-04-02 13:46 | IPNPDOC ---
Text Note Date of Service The patient was seen on 04/02/21. NOTE Subjective: Patient continues to have intermittent cough without sputum. She complains of generalized weakness Objective: GENERAL APPEARANCE: NAD HEENT: no scleral icterus, no JVD, EOMI CARDIOVASCULAR: S1S2 LUNGS: Diminished lung sounds bilaterally ABDOMEN: soft & not tender w palpitation MUSCULOSKELETAL: no cyanosis, no swelling INTEGUMENT: no generalized pallor NEUROLOGICAL: cranial nerve function from 2-12 intact intact, follows commands, speech not dysarthric Assessment and plan Patient is 46-year-old female with a history of lupus, fibromyalgia, solitary kidney, presented with shortness of breath and hypoxia secondary to Covid 19 infection. Patiently admitted for management of acute respiratory failure with hypoxia secondary to Covid 19 viral infection. Acute hypoxic respiratory failure secondary to Covid 19 infection. Continue Remdesevir, IV steroids Incentive spirometry Continue oxygen supplementation SLE - Follows with rheumatology recently seen - Hold Plaquenil while on aggressive year - Received methotrexate, last dose on 03/30/20 one once weekly Gout - Continue allopurinol Menopause hold estradiol due to hypercoagulable states from COVID-19 VS,Fishbone, I+O VS, Fishbone, I+O Laboratory Tests 04/02/21 02:46 Vital Signs Date Time Temp Pulse Resp B/P (MAP) Pulse Ox O2 Delivery O2 Flow Rate FiO2 04/02/21 13:33 94 Nasal Cannula 4.0 04/02/21 09:05 96.4 75 21 128/68 (88) SINDHU CULLEN DO April 02, 2021 13:46
[2021-04-02 14:00] VITALS: BP 123/72
[2021-04-02] MEDS: allopurinoL 300 MG TAB PO SCH (20:28)
[2021-04-02] MEDS ORDERED: estradioL 1 MG TAB PO SCH (21:00)
[2021-04-02 21:30] VITALS: BP 119/71
[2021-04-03] MEDS ORDERED: VANCOMYCIN HCL 1,000 MG, VIAL MATE ADAPTER 1 EACH in NS 250 ML IV SCH (01:00)
[2021-04-03] MEDS ORDERED: VANCOMYCIN HCL 1,000 MG, VIAL MATE ADAPTER 1 EACH in NS 250 ML IV ONE ×2 (01:00→02:00)
[2021-04-03 05:36] VITALS: BP 100/66
[2021-04-03] MEDS: HEPARIN SOD (PORCINE) 5000UNITS/ML 1ML VIAL/SYRINGE SC SCH ×3 (05:39→20:28)
[2021-04-03 06:42] LABS: HEMATOCRIT 36.9 % (36.0-47.0); HEMOGLOBIN 12.6 g/dl (12.0-15.5); MEAN CORPUSCULAR HGB CONC 34.1 g/dl (32.0-36.5); MEAN CORPUSCULAR VOLUME 87.9 fl (80.0-96.0); PLATELET COUNT, AUTOMATED 393 10^3/uL (150-450); WHITE BLOOD COUNT 7.9 10^3/uL (4.0-10.0)
[2021-04-03 07:01] LABS: BLOOD UREA NITROGEN 23 MG/DL (7-18); CALCIUM LEVEL 8.2 MG/DL (8.5-10.1); CARBON DIOXIDE LEVEL 24 MEQ/L (21-32); CHLORIDE LEVEL 108 MEQ/L (98-107); CREATININE FOR GFR 0.93 MG/DL (0.55-1.30); GLOMERULAR FILTRATION RATE > 60.0 (>58); GLUCOSE, FASTING 95 MG/DL (70-100); MAGNESIUM LEVEL 1.9 MG/DL (1.8-2.4); SODIUM LEVEL 140 MEQ/L (136-145)
[2021-04-03 07:21] LABS: ATYPICAL LYMPH 1 % (0-5); LYMPHOCYTES 11 % (16-44); MONOCYTES 11 % (0-5); NEUTROPHILS 75 % (28-66)
[2021-04-03 07:27] LABS: PLATELET ESTIMATE NORMAL (NORMAL)
[2021-04-03] MEDS: dexameTHASONE 4 MG/ML 1ML VIAL (J1100 PER 1MG) IV SCH (08:01)
[2021-04-03] MEDS: DOCUSATE SODIUM 100MG CAPSULE PO SCH ×2 (08:01→20:33)
[2021-04-03 08:04] VITALS: BP 116/73
[2021-04-03] MEDS: REMDESIVIR 100 MG in NS 250 ML IV SCH (10:41)
--- NOTE | 2021-04-03 10:49 | IPNPDOC ---
Text Note Date of Service The patient was seen on 04/03/21. NOTE Subjective: Patient continues to have intermittent cough. I encouraged patient for incentive spirometry and lying on the bed with prone position Objective: GENERAL APPEARANCE: NAD HEENT: no scleral icterus, no JVD, EOMI CARDIOVASCULAR: S1S2 LUNGS: Diminished lung sounds bilaterally, coarse lung sounds bilaterally ABDOMEN: soft & not tender w palpitation MUSCULOSKELETAL: no cyanosis, no swelling INTEGUMENT: no generalized pallor NEUROLOGICAL: cranial nerve function from 2-12 intact intact, follows commands, speech not dysarthric Assessment and plan Patient is 46-year-old female with a history of lupus, fibromyalgia, solitary kidney, presented with shortness of breath and hypoxia secondary to Covid 19 infection. Patiently admitted for management of acute respiratory failure with hypoxia secondary to Covid 19 viral infection. Acute hypoxic respiratory failure secondary to Covid 19 infection. Continue Remdesevir, IV steroids Incentive spirometry Continue oxygen supplementation Prone position for 4 to 6 hours to 2-3 times a day SLE - Follows with rheumatology recently seen - Hold Plaquenil while on aggressive year - Received methotrexate, last dose on 03/30/20 one once weekly Gout - Continue allopurinol Menopause hold estradiol due to hypercoagulable states from COVID-19 Positive blood culture One set of blood culture positive for gram-positive cocci in clusters Question for contamination Await repeat blood culture Vancomycin IV started empirically VS,Fishbone, I+O VS, Fishbone, I+O Laboratory Tests 04/03/21 06:17 Vital Signs Date Time Temp Pulse Resp B/P (MAP) Pulse Ox O2 Delivery O2 Flow Rate FiO2 04/03/21 08:04 97.0 65 20 116/73 (87) 96 Nasal Cannula 4.0 I&O- Last 24 Hours up to 6 AM 04/03/21 06:00 Intake Total 1910 ml Output Total 1100 ml Balance 810 ml SINDHU CULLEN DO April 03, 2021 10:49
[2021-04-03] MEDS: VANCOMYCIN HCL 750 MG, VIAL MATE ADAPTER 1 EACH in NS 250 ML IV SCH ×2 (11:58→22:04)
[2021-04-03] MEDS: SODIUM CHLORIDE 0.9% INJ 10 ML SYR IV SCH (11:58)
[2021-04-03] MEDS: VANCOMYCIN HCL 500 MG in D5W MINI-BAG PLUS 100 ML IV SCH ×2 (12:30→23:12)
[2021-04-03 14:39] VITALS: BP 97/53
[2021-04-03 20:00] VITALS: BP 109/56
[2021-04-03] MEDS: allopurinoL 300 MG TAB PO SCH (20:28)
[2021-04-04] MEDS: HEPARIN SOD (PORCINE) 5000UNITS/ML 1ML VIAL/SYRINGE SC SCH ×3 (05:31→20:22)
[2021-04-04 06:00] VITALS: BP 110/75
[2021-04-04] MEDS: DOCUSATE SODIUM 100MG CAPSULE PO SCH ×2 (09:00→20:21)
[2021-04-04 09:47] LABS: BASO % 0.3 % (0.0-1.0); EOS % 0.5 % (0.0-3.0); HEMATOCRIT 39.3 % (36.0-47.0); HEMOGLOBIN 12.9 g/dl (12.0-15.5); LYMPH # 1.2 10^3/uL (1.5-5.0); LYMPH % 13.3 % (24.0-44.0); MEAN CORPUSCULAR HEMOGLOBIN 29.4 pg (27.0-33.0); MEAN CORPUSCULAR HGB CONC 32.8 g/dl (32.0-36.5); MEAN CORPUSCULAR VOLUME 89.5 fl (80.0-96.0); MONO % 11.5 % (2.0-8.0); NEUTROPHILS # 6.6 10^3/uL (1.5-8.5); NEUTROPHILS % 73.7 % (36.0-66.0); PLATELET COUNT, AUTOMATED 336 10^3/uL (150-450); RED BLOOD COUNT 4.39 10^6/uL (4.00-5.40); WHITE BLOOD COUNT 8.9 10^3/uL (4.0-10.0)
[2021-04-04 09:57] LABS: INR 0.95; PROTHROMBIN TIME 12.9 SECONDS (12.5-14.3)
[2021-04-04 09:58] LABS: PARTIAL THROMBOPLASTIN TIME 29.8 SECONDS (24.2-38.5)
[2021-04-04] MEDS: SODIUM CHLORIDE 0.9% INJ 10 ML SYR IV SCH (10:04)
[2021-04-04] MEDS: dexameTHASONE 4 MG/ML 1ML VIAL (J1100 PER 1MG) IV SCH (10:04)
[2021-04-04] MEDS: REMDESIVIR 100 MG in NS 250 ML IV SCH (10:04)
[2021-04-04 10:22] LABS: ALBUMIN 2.1 GM/DL (3.2-5.2); ALT/SGPT 28 U/L (12-78); BILIRUBIN,DIRECT < 0.1 MG/DL (0.0-0.2); BILIRUBIN,TOTAL 0.2 MG/DL (0.2-1.0); BLOOD UREA NITROGEN 21 MG/DL (7-18); CALCIUM LEVEL 8.3 MG/DL (8.5-10.1); CARBON DIOXIDE LEVEL 26 MEQ/L (21-32); CHLORIDE LEVEL 108 MEQ/L (98-107); CPK CREATINE PHOSPHOKINASE 52 U/L (26-192); CREATININE FOR GFR 1.11 MG/DL (0.55-1.30); FERRITIN 654 NG/ML (8-252); GLOMERULAR FILTRATION RATE 56.3 (>58); GLUCOSE, FASTING 88 MG/DL (70-100); LDH LACTATE DEHYDROGENASE 269 U/L (84-246); NT-PRO BNP 77 PG/ML (<125); POTASSIUM SERUM 4.1 MEQ/L (3.5-5.1); SODIUM LEVEL 141 MEQ/L (136-145); TOTAL PROTEIN 5.8 GM/DL (6.4-8.2); TROPONIN I < 0.02 NG/ML (< 0.10)
--- NOTE | 2021-04-04 12:40 | IPNPDOC ---
Text Note Date of Service The patient was seen on 04/04/21. NOTE Subjective: Patient continues to have intermittent cough. Patient stated that her breathing improved and she was on the room air when I saw her Objective: GENERAL APPEARANCE: NAD HEENT: no scleral icterus, no JVD, EOMI CARDIOVASCULAR: S1S2 LUNGS: Diminished lung sounds bilaterally ABDOMEN: soft & not tender w palpitation MUSCULOSKELETAL: no cyanosis, no swelling INTEGUMENT: no generalized pallor NEUROLOGICAL: cranial nerve function from 2-12 intact intact, follows commands, speech not dysarthric Assessment and plan Patient is 46-year-old female with a history of lupus, fibromyalgia, solitary kidney, presented with shortness of breath and hypoxia secondary to Covid 19 infection. Patiently admitted for management of acute respiratory failure with hypoxia secondary to Covid 19 viral infection. Acute hypoxic respiratory failure secondary to Covid 19 infection. Continue Remdesevir, IV steroids Incentive spirometry Continue oxygen supplementation Prone position for 4 to 6 hours to 2-3 times a day SLE - Follows with rheumatology recently seen - Hold Plaquenil while on aggressive year - Received methotrexate, last dose on 03/30/20 one once weekly Gout - Continue allopurinol Menopause hold estradiol due to hypercoagulable states from COVID-19 Positive blood culture One set of blood culture positive for gram-positive cocci in clusters Question for contamination Repeated blood culture negative I DC vancomycin IV Pneumonia Community acquired pneumonia Secondary to Covid 19 See above VS,Fishbone, I+O VS, Fishbone, I+O Laboratory Tests 04/04/21 09:26 Vital Signs Date Time Temp Pulse Resp B/P (MAP) Pulse Ox O2 Delivery O2 Flow Rate FiO2 04/04/21 11:52 96 Room Air 04/04/21 10:30 2.0 04/04/21 06:00 96.7 53 16 110/75 (87) I&O- Last 24 Hours up to 6 AM 04/04/21 06:00 Intake Total 1290 ml Output Total 850 ml Balance 440 ml SINDHU CULLEN DO April 04, 2021 12:40
[2021-04-04 14:00] VITALS: BP 118/70
[2021-04-04 20:00] VITALS: BP 93/55
[2021-04-04] MEDS: allopurinoL 300 MG TAB PO SCH (20:22)
[2021-04-05] MEDS: HEPARIN SOD (PORCINE) 5000UNITS/ML 1ML VIAL/SYRINGE SC SCH (05:42)
[2021-04-05 06:00] VITALS: BP 115/66
[2021-04-05 07:19] LABS: HEMATOCRIT 36.8 % (36.0-47.0); MEAN CORPUSCULAR HGB CONC 32.6 g/dl (32.0-36.5); MEAN CORPUSCULAR VOLUME 88.9 fl (80.0-96.0); PLATELET COUNT, AUTOMATED 353 10^3/uL (150-450); RED BLOOD COUNT 4.14 10^6/uL (4.00-5.40); WHITE BLOOD COUNT 7.2 10^3/uL (4.0-10.0)
[2021-04-05] MEDS: DOCUSATE SODIUM 100MG CAPSULE PO SCH (07:23)
[2021-04-05 07:36] LABS: BLOOD UREA NITROGEN 20 MG/DL (7-18); CALCIUM LEVEL 8.2 MG/DL (8.5-10.1); CARBON DIOXIDE LEVEL 24 MEQ/L (21-32); CHLORIDE LEVEL 108 MEQ/L (98-107); CREATININE FOR GFR 0.97 MG/DL (0.55-1.30); GLOMERULAR FILTRATION RATE > 60.0 (>58); GLUCOSE, FASTING 97 MG/DL (70-100); MAGNESIUM LEVEL 1.6 MG/DL (1.8-2.4); POTASSIUM SERUM 3.7 MEQ/L (3.5-5.1); SODIUM LEVEL 140 MEQ/L (136-145)
[2021-04-05 07:43] LABS: ATYPICAL LYMPH 3 % (0-5); LYMPHOCYTES 17 % (16-44); METAMYELOCYTES 1 % (0-0); MONOCYTES 8 % (0-5); NEUTROPHILS 70 % (28-66); PLATELET ESTIMATE NORMAL (NORMAL)
[2021-04-05] MEDS: REMDESIVIR 100 MG in NS 250 ML IV SCH (09:06)
[2021-04-05] MEDS: dexameTHASONE 4 MG/ML 1ML VIAL (J1100 PER 1MG) IV SCH (09:06)
[2021-04-05] MEDS ORDERED: ROBILIQ13 PO (09:20)
[2021-04-05] MEDS ORDERED: PRED5PAK2 PO (09:20)
[2021-04-05] MEDS ORDERED: PROAAER10 INH (09:20)
[2021-04-05] MEDS: SODIUM CHLORIDE 0.9% INJ 10 ML SYR IV SCH (11:08)
--- NOTE | 2021-04-05 12:11 | DS.PDOC ---
Discharge Summary General Date of Admission April 02, 2021 at 06:47 Date of Discharge 04/05/21 Discharge Summary PROCEDURES PERFORMED DURING STAY: [None]. ADMITTING DIAGNOSES: SLE Acute hypoxic respiratory failure secondary to Covid 19 infection. Gout Menopause Positive blood culture Pneumonia DISCHARGE DIAGNOSES: SLE Acute hypoxic respiratory failure secondary to Covid 19 infection. Gout Menopause Positive blood culture Pneumonia COMPLICATIONS/CHIEF COMPLAINT: Pneumonia Due To Covid 19 Virus. HISTORY OF PRESENT ILLNESS: Patient is 46-year-old female with a history of lupus, fibromyalgia, solitary kidney, presented with shortness of breath and hypoxia secondary to Covid 19 infection. Patiently admitted for management of acute respiratory failure with hypoxia secondary to Covid 19 viral infection. HOSPITAL COURSE: During the hospital stay the following issues addressed Acute hypoxic respiratory failure secondary to Covid 19 infection. Patient received Remdesevir, IV steroids Incentive spirometry Continue oxygen supplementation Patient was treated with Prone position for 4 to 6 hours to 2-3 times a day SLE - Follows with rheumatology recently seen - Hold Plaquenil while on aggressive year - Received methotrexate, last dose on 03/30/20 one once weekly Gout - Continue allopurinol Menopause hold estradiol due to hypercoagulable states from COVID-19 Positive blood culture One set of blood culture positive for gram-positive cocci in clusters Question for contamination Repeated blood culture negative I DC vancomycin IV Pneumonia Community acquired pneumonia Secondary to Covid 19 See above DISCHARGE MEDICATIONS: Please see below. ALLERGIES: Please see below. PHYSICAL EXAMINATION ON DISCHARGE: VITAL SIGNS: Please see below. GENERAL APPEARANCE: NAD HEENT: no scleral icterus, no JVD, EOMI CARDIOVASCULAR: S1S2 LUNGS: Diminished lung sounds bilaterally ABDOMEN: soft & not tender w palpitation MUSCULOSKELETAL: no cyanosis, no swelling INTEGUMENT: no generalized pallor NEUROLOGICAL: cranial nerve function from 2-12 intact intact, follows commands, speech not dysarthric LABORATORY DATA: Please see below. IMAGING: [facility] NAME: THOMAS TILLMAN DATE OF : 1975 BUSINESS NUMBER: [id number] AGE: 46 SEX: F REPORT #: [id number] ROOM: M ED TECHNOLOGIST: KRISTIN DOCTOR: CRISTIAN DAVIS DO Ordered for Date&Time: 04/02/21 0235 cc: [~ rep ct ivnm] Service Date&Time: 04/02/21 0311 This report is in Signed status. Interpretation performed by [facility]. Thank you for having your radiology procedures performed at [facility] RADIOLOGY REPORT Date&Time printed: [~ rep prt dt last] [~ rep prt tm last] Page [address] of [address] [address] RADIOLOGY REPORT This report is in Signed status. Interpretation performed by [facility]. Thank you for having your radiology procedures performed at [facility] RADIOLOGY REPORT Date&Time printed: [~ rep prt dt last] [~ rep prt tm last] Page 1 of 1 PROCEDURE INFORMATION: Exam: XR Chest Exam date and time: 04/02/2021 3:11 AM Age: 46 years old Clinical indication: Other: Dyspnea/cough TECHNIQUE: Imaging protocol: XR of the chest. Views: 1 view. COMPARISON: No relevant prior studies available. FINDINGS: Lungs: Patchy left greater than right lung infiltrates. Pleural spaces: Unremarkable. No pleural effusion. No pneumothorax. Heart/Mediastinum: Unremarkable. No cardiomegaly. Bones/joints: Unremarkable. IMPRESSION: Patchy left greater than right lung infiltrates. Electronically signed by: Zainab Palafox On 04/02/2021 03:43:49 AM DD: ZAINAB PALAFOX MD 04/02/21310 DT: ROCKY 04/02/21342 DS: MUSHTAQ 04/02/21342 [~ rep ct labl] PROGNOSIS: Fair ACTIVITY: [As tolerated]. DIET: Regular DISPOSITION: 01 Home, Self-Care. DISCHARGE INSTRUCTIONS: Continue incentive spirometry ITEMS TO FOLLOWUP ON ON OUTPATIENT: Follow-up with PCP in 3-5 days, carantine 2 weeks in total to March 14 DISCHARGE CONDITION: [Stable]. TIME SPENT ON DISCHARGE: 40 minutes. Vital Signs/I&Os Vital Signs Date Time Temp Pulse Resp B/P (MAP) Pulse Ox O2 Delivery O2 Flow Rate FiO2 04/05/21 06:00 97.2 51 18 115/66 (82) 95 Room Air 04/04/21 10:30 2.0 I&O- Last 24 Hours up to 6 AM 04/05/21 06:00 Intake Total 790 ml Output Total 1725 ml Balance -935 ml Laboratory Data Labs 24H Laboratory Tests 2 04/05/21 06:52: Neutrophils (%) (Auto) , Nucleated Red Blood Cells % (auto) 0.0, Neutrophils 70H, Band Neutrophils 1, Lymphocytes (Manual) 17, Monocytes (Manual) 8H, Metamyelocytes 1H, Atypical Lymphocytes 3, Platelet Estimate NORMAL, Anion Gap 8, Glomerular Filtration Rate > 60.0, Calcium Level 8.2L, Magnesium Level 1.6L CBC/BMP Laboratory Tests 04/05/21 06:52 Microbiology Microbiology 04/03/21 Blood Culture - Preliminary, Resulted No Growth after 48 hours. All Specime... 04/03/21 Blood Culture - Preliminary, Resulted No Growth after 48 hours. All Specime... 04/02/21 Blood Culture - Preliminary, Resulted Discharge Medications Scheduled Allopurinol (Zyloprim) 300 Mg Tablet, 300 MG PO QHS, (Reported) Estradiol (Estradiol) 2 Mg Tablet, 2 MG PO QHS, (Reported) Guaifen/Dextromethorphan/PE (Robitussin Cough-Cold Cf Liq) 118 Ml Liquid, 5 ML PO Q8H Hydroxychloroquine Sulfate (Plaquenil) 200 Mg Tablet, 200 MG PO BID, (Reported) Methotrexate Sodium (Methotrexate) 2.5 Mg Tablet, 10 MG PO QWEEK, (Reported) sunday Prednisone (Prednisone) 5 Mg Tab.ds.pk, 0 PO ASDIRECTED 6 day dose pack taper Scheduled PRN Albuterol Sulfate (Proair Hfa) 8.5 Gm Hfa.aer.ad, 2 PUFF INH Q4-6HP PRN for wheezing Allergies Coded Allergies: Quinolones (Verified Allergy, Severe, cipro, levaquin - hives, breathing problem, 04/28/19) cephalexin (Verified Allergy, Severe, hives, breathing problem, 04/28/19) ciprofloxacin (Verified Allergy, Severe, hives, breathing problem, 04/28/19) diclofenac (Verified Allergy, Severe, hives, breathing problem, 04/28/19) erythromycin base (Verified Allergy, Severe, N/V, hives, breathing problem, 04/28/19) hyoscyamine (Verified Allergy, Severe, hives, breathing problem, 04/28/19) indomethacin (Verified Allergy, Severe, anaphylaxis, 04/28/19) levofloxacin (Verified Allergy, Severe, hives, breathing problem, 04/28/19) methenamine (Verified Allergy, Severe, hives, breathing problem, 04/28/19) nitrofurantoin (Verified Allergy, Severe, macrobid - hives, breathing problem, 04/28/19) rofecoxib (Verified Allergy, Severe, hives, breathing problem, 04/28/19) tramadol (Verified Allergy, Severe, hives, breathing problem, 04/28/19) Penicillins (Verified Allergy, Intermediate, augmentin, ampicillin- hives, 04/28/19) amoxicillin (Verified Allergy, Intermediate, hives, 04/28/19) ampicillin (Verified Allergy, Intermediate, hives, 04/28/19) belladonna alkaloids (Verified Allergy, Intermediate, hives, 04/28/19) clavulanic acid (Verified Allergy, Intermediate, hives, 04/28/19) codeine (Verified Allergy, Intermediate, hives, 04/28/19) doxycycline (Verified Allergy, Intermediate, hives, 04/28/19) ethinyl estradiol (Verified Allergy, Intermediate, hives, 04/28/19) fosfomycin (Verified Allergy, Intermediate, hives, 04/28/19) hydrocodone (Verified Allergy, Intermediate, hives, 04/28/19) norelgestromin (Verified Allergy, Intermediate, hives, 04/28/19) norgestimate (Verified Allergy, Intermediate, hives, 04/28/19) phenazopyridine (Verified Allergy, Intermediate, hives, 04/28/19) propoxyphene (Verified Allergy, Intermediate, darvocet - hives, 04/28/19) sulfamethoxazole (Verified Allergy, Intermediate, hives, 04/28/19) trimethoprim (Verified Allergy, Intermediate, hives, 04/28/19) dronabinol (Verified Allergy, Unknown, 04/28/19) methylene blue (Verified Allergy, Unknown, 04/28/19) midazolam (Verified Allergy, Unknown, 04/28/19) salicylates (Verified Allergy, Unknown, 04/28/19) SINDHU CULLEN DO Apr 05, 2021 12:11
== END 2021-04-05 10:52 | disposition home or self-care (01) | DRG 177 ==
LOC: M ED 02:03 → M ED INP 06:47 → ENRESERV 08:08 → M 4MAIN 08:54
PROVIDERS: ADMIT Family Medicine; ATTEND Internal Medicine
DX: U07.1 COVID-19 (principal); J96.01 Acute respiratory failure with hypoxia; J12.82 Pneumonia due to coronavirus disease 2019; M10.9 Gout, unspecified; M79.7 Fibromyalgia; M32.10 Systemic lupus erythematosus, organ or system involvement unspecified; Z88.8 Allergy status to other drugs, medicaments and biological substances; Z88.2 Allergy status to sulfonamides; Z88.5 Allergy status to narcotic agent; Z88.0 Allergy status to penicillin; Z87.891 Personal history of nicotine dependence; Z79.899 Other long term (current) drug therapy

== ENCOUNTER 2021-04-14 14:28 | Inpatient (IN) | payer MEDICAID, MEDICARE ==
[~2021-04-14] VITALS: Ht 170.2 cm; Wt 93.6 kg
[~2021-04-14 14:28] MED LIST changes: +ESTR1TAB PO; +ESTR2TAB2 PO; +METH2.5T48 PO; +PLAQ200T4 PO; +PRED5PAK2 PO; +PROAAER10 INH; +ROBILIQ13 PO
--- NOTE | 2021-04-14 15:42 | REP ---
INDICATION: CP sob. COMPARISON: 04/02/2021. TECHNIQUE: Single portable AP view of the chest was performed. FINDINGS: The previously noted diffuse bilateral infiltrates appear essentially unchanged, having a somewhat reticulonodular appearance. The heart and mediastinum are unchanged. Dorsal column stimulator leads are again noted. IMPRESSION: No significant change in the previously noted diffuse bilateral reticulonodular infiltrates. <Electronically signed by Vargas Kinsey > 04/14/21 1249
[2021-04-14] MEDS ORDERED: NS 1,000 ML IV ONE (17:35)
[2021-04-14 18:00] LABS: BASO % 0.3 % (0.0-1.0); EOS # 0.1 10^3/uL (0.0-0.5); EOS % 0.5 % (0.0-3.0); HEMATOCRIT 37.5 % (36.0-47.0); HEMOGLOBIN 12.1 g/dl (12.0-15.5); LYMPH % 19.9 % (24.0-44.0); MEAN CORPUSCULAR HEMOGLOBIN 29.2 pg (27.0-33.0); MEAN CORPUSCULAR HGB CONC 32.3 g/dl (32.0-36.5); MEAN CORPUSCULAR VOLUME 90.6 fl (80.0-96.0); MONO # 0.7 10^3/uL (0.0-0.8); MONO % 7.1 % (2.0-8.0); NEUTROPHILS # 7.1 10^3/uL (1.5-8.5); NEUTROPHILS % 71.9 % (36.0-66.0); RED BLOOD COUNT 4.14 10^6/uL (4.00-5.40); WHITE BLOOD COUNT 9.8 10^3/uL (4.0-10.0)
[2021-04-14 18:03] LABS: INR 0.96
[2021-04-14 18:04] LABS: C REACTIVE PROTEIN QUANTITATIV 0.57 MG/DL (0.00-0.30); CK-MB VALUE MASS < 1.0 NG/ML (<3.6); CPK CREATINE PHOSPHOKINASE 75 U/L (26-192); FERRITIN 382 NG/ML (8-252); LDH LACTATE DEHYDROGENASE 356 U/L (84-246); MAGNESIUM LEVEL 1.9 MG/DL (1.8-2.4); MB/CK RELATIVE INDEX 1.33 (< OR =4); TROPONIN I < 0.02 NG/ML (< 0.10)
[2021-04-14 18:07] LABS: D-DIMER QUANT 3995.97 ng/ml (<500)
[2021-04-14] MEDS ORDERED: ISOVUE-370 76% 100ML VIAL As Ordered ONE (19:01)
--- NOTE | 2021-04-14 20:05 | REPVR ---
PROCEDURE INFORMATION: Exam: CTA Chest With Contrast Exam date and time: 04/14/2021 7:14 PM Age: 46 years old Clinical indication: Abnormal findings; Abnormal diagnostic tests; Elevated d-dimer; Shortness of breath; Additional info: Post covid SOB inc d-dimer TECHNIQUE: Imaging protocol: Computed tomographic angiography of the chest with contrast. 3D rendering (Not supervised by radiologist): MIP and/or 3D reconstructed images were created by the technologist. Radiation optimization: All CT scans at this facility use at least one of these dose optimization techniques: automated exposure control; mA and/or kV adjustment per patient size (includes targeted exams where dose is matched to clinical indication); or iterative reconstruction. Contrast material: ISOVUE 370; Contrast volume: 75 ml; Contrast route: INTRAVENOUS (IV); COMPARISON: MN Chest, 1 view 04/14/2021 3:20 PM FINDINGS: Tubes, catheters and devices: A metallic device is noted in the posterior aspect of the thecal sac midthoracic region. Pulmonary arteries: There is opacification of the pulmonary arteries with no evidence of pulmonary embolus. Aorta: There is opacification of the aorta which appears intact. Lungs: There are patchy areas of interstitial and alveolar infiltrate throughout all aspects of the lung consistent with COVID-19. There is a 1 cm nodular density in the right mid lung field which could represent a small cyst or infected fluid collection. Solid nodule not excluded and recommend continued surveillance of this. Pleural spaces: The there is no evidence of pneumothorax or pleural effusion. Heart: The heart is top-normal in size. Lymph nodes: Unremarkable. No enlarged lymph nodes. Bones/joints: Unremarkable. No acute fracture. Soft tissues: Unremarkable. IMPRESSION: 1. There is no evidence of pulmonary embolus. 2. There are patchy areas of interstitial and alveolar infiltrate throughout all aspects of the lung consistent with COVID-19. 3. There is a 1 cm round nodular area right lower lung field which could represent a small cyst or infected fluid collection. To exclude the possibility of a solid mass or nodule recommend continued surveillance with CT. Electronically signed by: Rick Lemus On 04/14/2021 20:05:28 PM
[2021-04-14] MEDS ORDERED: MAALOX 30 ML SUSP *UDC PO PRN (21:55)
[2021-04-14] MEDS ORDERED: MOM 30ML SUSPENSION UDC PO PRN (21:55)
--- NOTE | 2021-04-14 21:57 | HPEPDOC ---
[facility] Medical History & Physical Date of Admission Apr 14, 2021 Date of Service: Apr 14, 2021 Primary Care Physician: AMIRAH WATSON DO Attending Physician: JUAN MANUEL GONZALEZ MD History and Physical TIME OF SERVICE: 1105pm CHIEF COMPLAINT: dyspnea HISTORY OF PRESENT ILLNESS: This 46 yr old F was diagnosed w COVID 19 on April 02 but continues to feel dizzy, weak, short of breath and is coughing; today is the last day of her quarantine. She had planned to f/u w her PCP but was not able to bc she is still on quarantine so she came to the ER. She denies having a poor appetite or having n/v/d. She has pressure when she urinates and back pain which are symptoms that she typically has when she has a UTI REVIEW OF SYSTEMS: 12-point review of systems negative except as listed in HPI PAST MEDICAL/ SURGICAL HISTORY: SLE, Fibromyalgia, recurrent UTIs (had temporary infuse a port for abx), PCOS, Gout, migraines, class 1 obesity, anxiety / depression, L nephrectomy, tonsillectomy w adenoidectomy, partial hysterectomy, oophorectomy, carpal tunnel surgery, c section, tubal ligation SOCIAL HISTORY: former smoker, doesnt drink alcohol FAMILY HISTORY: HTN ALLERGIES: Please see below. HOME MEDICATIONS: Please see below. PHYSICAL EXAMINATION: Vital Signs Date Time Temp Pulse Resp B/P (MAP) Pulse Ox O2 Delivery O2 Flow Rate FiO2 04/14/21 14:28 97.3 87 20 155/70 (98) 97 Room Air GENERAL APPEARANCE: well-nourished and developed /NAD HEENT: EOMI /no conjunctival injection CARDIOVASCULAR: RRR/NMRG LUNGS: CTAB on RA/ coughing ABDOMEN: contour obese/soft & NT w palpation MUSCULOSKELETAL: NCAT / KATHY x 4 INTEGUMENT: not pale, flushed or diaphoretic NEUROLOGICAL: CN 2-12 intact /speech not dysarthric PSYCHIATRIC: A&Ox 3/ able to understand and follow all commands LABORATORY DATA: POC Glucose (Misc Panel) 92, POC Sodium (Misc Panel) 138, POC Potassium (Misc Panel) 4.2, POC Chloride (Misc Panel) 102, POC Total CO2 (Misc Panel) 29.0H, POC Blood Urea Nitrogen (Misc Panel 21, POC Ionized Calcium (Misc Panel) 4.8, POC Creatinine (Misc Panel) 1.4H, POC Hematocrit (Misc Panel) 36.0L 04/14/21 16:25: Immature Granulocyte % (Auto) 0.3, Neutrophils (%) (Auto) 71.9H, Lymphocytes (%) (Auto) 19.9L, Monocytes (%) (Auto) 7.1, Eosinophils (%) (Auto) 0.5, Basophils (% ) (Auto) 0.3, Neutrophils # (Auto) 7.1, Lymphocytes # (Auto) 2.0, Monocytes # (Auto) 0.7, Eosinophils # (Auto) 0.1, Basophils # (Auto) 0.0, Nucleated Red Blood Cells % (auto) 0.0 04/14/21 16:26: Prothrombin Time 13.0, Prothromb Time International Ratio 0.96, Activated Partial Thromboplast Time 20.0L, Fibrinogen 453H, D-Dimer, Quantitative 3995.97H, Lactic Acid Level 0.7 04/14/21 16:51: Urine Color YELLOW, Urine Appearance HAZY, Urine pH 6.0, Urine Specific [place] 1.008, Urine Protein 2+H, Urine Glucose (UA) NEGATIVE, Urine Ketones NEGATIVE, Urine Blood NEGATIVE, Urine Nitrite NEGATIVE, Urine Bilirubin NEGATIVE, Urine Urobilinogen 0.2, Urine Leukocyte Esterase 2+H, Urine WBC (Auto) 38H, Urine RBC (Auto) 2, Urine Hyaline Casts (Auto) 0, Urine Bacteria (Auto) NEGATIVE, Urine Squamous Epithelial Cells 2, Urine Sperm (Auto) 04/14/21 16:56: Magnesium Level 1.9, Ferritin 382H, Lactate Dehydrogenase 356H, Total Creatine Kinase 75, Creatine Kinase MB < 1.0, Creatine Kinase MB Relative Index 1.33, Troponin I < 0.02, C-Reactive Protein, Quantitative 0.57H 04/14/21 17:24: POC pH (Misc Panel) 7.418, POC Base Excess (Misc Panel) -1.0, POC Saturated Percent O2 (Misc) 96, POC pO2 (Misc Panel) 82.0, POC pCO2 (Misc Panel) 37.2, POC HCO3 (Misc Panel) 24.0, POC Total CO2 (Misc Panel) 25.0 IMAGING: Chest xray IMPRESSION: No significant change in the previously noted diffuse bilateral reticulonodular infiltrates. CTA chest IMPRESSION: 1. There is no evidence of pulmonary embolus. 2. There are patchy areas of interstitial and alveolar infiltrate throughout all aspects of the lung consistent with COVID-19. 3. There is a 1 cm round nodular area right lower lung field which could represent a small cyst or infected fluid collection. To exclude the possibility of a solid mass or nodule recommend continued surveillance with CT. MICROBIOLOGY: respiratory panel neg ASSESSMENT: is a 46 yr old F w SLE, Fibromyalgia, recurrent UTIs (had temporary infuse a port for abx), PCOS, Gout, migraines, class 1 obesity, anxiety / depression who is admitted for LOUISA and cystitis / pyelonephritis. PLAN: 1 LOUISA s/p L Nephrectomy Plan: monitor UOP / IVF / f/u renal panel, CK, Ulytes for FENa or FEUrea / renal US / hold nephrotoxic drugs / if her renal function doesn't improve the day time team may consider Nephro consult 2 Cystitis w/o hematuria /Pyelonephritis She has a hx of recurrent UTIs and last saw several yrs ago Plan: Invanz (bc she has multiple allergies) pending UCx 3 Cough and Dyspnea 2/2 Post COVID syndrome or bronchitis ? Despite the high d-dimer the CTA was neg for PE Plan: monitor vitals / if her symptoms dont improve after 6 weeks after she has had COVID her PCP may consider Pulm referral to ensure that she doesnt have MTX induced pulmonary fibrosis 4 SLE Plan: MTX, will add folic acid / Plaquenil (she should f/u w Ophthalmology annually for an eye exam to screen for Plaquenil induced retinitis) 5 Gout Plan: allopurinol 6 Class 1 Obesity Complicates care Plan: f/u A1C to screen for DM DVT px w Lovenox (Nirmal Score 5 points = pharmacological px indicated) Dispo: home after at least 2 midnights stay Home Medications Scheduled Allopurinol (Zyloprim) 300 Mg Tablet, 300 MG PO QHS Estradiol (Estradiol) 2 Mg Tablet, 2 MG PO QHS Folic Acid (Folic Acid) 1 Mg Tablet, 1 MG PO DAILY Hydroxychloroquine Sulfate (Plaquenil) 200 Mg Tablet, 200 MG PO BID Methotrexate Sodium (Methotrexate) 2.5 Mg Tablet, 10 MG PO QWEEK SUNDAY Scheduled PRN Albuterol Sulfate (Proair Hfa) 8.5 Gm Hfa.aer.ad, 2 PUFF INH Q4-6HP PRN for wheezing Allergies Coded Allergies: Quinolones (Verified Allergy, Severe, cipro, levaquin - hives, breathing problem, 04/28/19) cephalexin (Verified Allergy, Severe, hives, breathing problem, 04/28/19) ciprofloxacin (Verified Allergy, Severe, hives, breathing problem, 04/28/19) diclofenac (Verified Allergy, Severe, hives, breathing problem, 04/28/19) erythromycin base (Verified Allergy, Severe, N/V, hives, breathing problem, 04/28/19) hyoscyamine (Verified Allergy, Severe, hives, breathing problem, 04/28/19) indomethacin (Verified Allergy, Severe, anaphylaxis, 04/28/19) levofloxacin (Verified Allergy, Severe, hives, breathing problem, 04/28/19) methenamine (Verified Allergy, Severe, hives, breathing problem, 04/28/19) nitrofurantoin (Verified Allergy, Severe, macrobid - hives, breathing problem, 04/28/19) rofecoxib (Verified Allergy, Severe, hives, breathing problem, 04/28/19) tramadol (Verified Allergy, Severe, hives, breathing problem, 04/28/19) Penicillins (Verified Allergy, Intermediate, augmentin, ampicillin- hives, 04/28/19) amoxicillin (Verified Allergy, Intermediate, hives, 04/28/19) ampicillin (Verified Allergy, Intermediate, hives, 04/28/19) belladonna alkaloids (Verified Allergy, Intermediate, hives, 04/28/19) clavulanic acid (Verified Allergy, Intermediate, hives, 04/28/19) codeine (Verified Allergy, Intermediate, hives, 04/28/19) doxycycline (Verified Allergy, Intermediate, hives, 04/28/19) ethinyl estradiol (Verified Allergy, Intermediate, hives, 04/28/19) fosfomycin (Verified Allergy, Intermediate, hives, 04/28/19) hydrocodone (Verified Allergy, Intermediate, hives, 04/28/19) norelgestromin (Verified Allergy, Intermediate, hives, 04/28/19) norgestimate (Verified Allergy, Intermediate, hives, 04/28/19) phenazopyridine (Verified Allergy, Intermediate, hives, 04/28/19) propoxyphene (Verified Allergy, Intermediate, darvocet - hives, 04/28/19) sulfamethoxazole (Verified Allergy, Intermediate, hives, 04/28/19) trimethoprim (Verified Allergy, Intermediate, hives, 04/28/19) dronabinol (Verified Allergy, Unknown, 04/28/19) methylene blue (Verified Allergy, Unknown, 04/28/19) midazolam (Verified Allergy, Unknown, 04/28/19) salicylates (Verified Allergy, Unknown, 04/28/19) A-FIB/CHADSVASC A-FIB History Current/History of A-Fib/PAF?: No Current PO Anticoag Therapy: No JUAN MANUEL GONZALEZ MD Apr 14, 2021 21:57
--- NOTE | 2021-04-14 22:22 | REPVR ---
PROCEDURE INFORMATION: Exam: US Retroperitoneal Limited, Kidneys Exam date and time: 04/14/2021 10:12 PM Age: 46 years old Clinical indication: Abnormal findings; Abnormal lab test; Abnormal kidney function lab tests; Prior surgery; Surgery date: 6+ months; Surgery type: S/P lt nephrectomy; Additional info: Axel TECHNIQUE: Imaging protocol: Real-time ultrasound of the retroperitoneum with image documentation. Examination was focused on the kidneys. COMPARISON: RENAL US 06/17/2019 10:54 AM FINDINGS: Right kidney: The right kidney measures 14.5 cm in length by 6.7 cm in thickness. There is lobulation of the margins of the right kidney. I would recommend a CT scan for further evaluation of the right kidney. The right kidney appears similar to the examination of 2019 and the marked lobulation is thought to be present. Mild increased echogenicity of the right kidney. This however is difficult to evaluate. According to history the patient had a left nephrectomy. Other findings: There is no evidence of hydronephrosis. IMPRESSION: 1. No evidence of right hydronephrosis. 2. Severe lobulation of the borders of the right kidney probably normal variation but recommend CT scan for verification. Electronically signed by: Rick Lemus On 04/14/2021 22:21:49 PM
[2021-04-14] MEDS: NS 1,000 ML IV SCH (22:29)
[2021-04-15] MEDS ORDERED: ALBUTEROL 90 MCG/ACT 8GM HFA INHALER INH PRN (00:45)
[2021-04-15] MEDS ORDERED: FOLI1TAB11 PO (00:45)
[2021-04-15] MEDS: estradioL 1 MG TAB PO SCH ×2 (01:06→20:12)
--- NOTE | 2021-04-15 03:20 | ECGEPIP ---
[facility] - ED Test Date: 2021-04-14 Pat Name: THOMAS TILLMAN Department: Room: - Gender: Female Human Resources File Clerk: BOBBY : 1975 Requested By: Jo Willis Order Number: [id number] Reading MD: Amadeo Zamudio Measurements Intervals [place] Rate: 63 P: 53 NC: 160 QRS: 53 QRSD: 70 T: 26 QT: 392 QTc: 401 Interpretive Statements Normal sinus rhythm POOR R WAVE PROGRESSION NONSPECIFIC T WAVE ABNORMALITY(S) Electronically Signed on 04-15-2021 3:19:47 EDT by Amadeo Zamudio
[2021-04-15] MEDS: ERTAPENEM SODIUM 1 GM in NS MINI-BAG PLUS 50 ML IV SCH (05:11)
[2021-04-15 05:14] VITALS: BP 125/77
[2021-04-15 07:16] LABS: HEMATOCRIT 33.7 % (36.0-47.0); HEMOGLOBIN 10.9 g/dl (12.0-15.5); MEAN CORPUSCULAR HEMOGLOBIN 29.5 pg (27.0-33.0); MEAN CORPUSCULAR HGB CONC 32.3 g/dl (32.0-36.5); MEAN CORPUSCULAR VOLUME 91.1 fl (80.0-96.0); PLATELET COUNT, AUTOMATED 291 10^3/uL (150-450); WHITE BLOOD COUNT 6.4 10^3/uL (4.0-10.0)
[2021-04-15 07:38] LABS: CALCIUM LEVEL 8.5 MG/DL (8.5-10.1); CREATININE FOR GFR 1.16 MG/DL (0.55-1.30); GLOMERULAR FILTRATION RATE 53.5 (>58); POTASSIUM SERUM 4.4 MEQ/L (3.5-5.1)
[2021-04-15] MEDS ORDERED: HYDROXYCHLOROQUINE 200 MG TAB PO SCH (09:00)
[2021-04-15] MEDS: FOLIC ACID 1 MG TAB PO SCH (09:53)
[2021-04-15] MEDS: ENOXAPARIN 40MG/0.4ML SYRINGE (J1650 PER 10MG) SC SCH (09:53)
[2021-04-15] MEDS: NS 1,000 ML IV SCH ×2 (09:54→18:39)
--- NOTE | 2021-04-15 11:48 | IPNPDOC ---
Text Note Date of Service The patient was seen on 04/15/21. NOTE Subjective: No any acute events overnight, patient reported mild right flank pain with dysuria. Objective: GENERAL APPEARANCE: NAD HEENT: no scleral icterus, no JVD, EOMI CARDIOVASCULAR: S1S2 LUNGS: CTA ABDOMEN: soft & not tender w palpitation, right flank tenderness MUSCULOSKELETAL: no cyanosis, no swelling INTEGUMENT: no generalized pallor NEUROLOGICAL: cranial nerve function from 2-12 intact intact, follows commands, speech not dysarthric Assessment and plan Patient is 46 years old female with past medical history of SLE, recurrent UTI, fibromyalgia, PCOS, gout, status post left nephrectomy, migraines class I obesity, anxiety, depression presented to the hospital with dysuria and right flank pain UTI/cystitis There is concern for acute pyelonephritis No right hydronephrosis Patient has multiple drugs allergy Continue Ertapenem IV Await urine culture, await blood culture Patient reported chronic UTI, most likely patient will need suppressive dose of antibiotics for prophylaxis of UTI Follow-up with urologist in the outpatient settings Generalized weakness/dyspnea Postviral 2/2 recent Covid PT/OT SLE Due to acute infection methotrexate and Plaquenil on hold Gout allopurinol PO Obesity BMI 32.2 Complicated care CKD3 Creatinine at baseline Continue to monitor kidney function VS,Cristi, I+O VS, Cristi, I+O Laboratory Tests 04/14/21 16:25 04/15/21 06:38 Vital Signs Date Time Temp Pulse Resp B/P (MAP) Pulse Ox O2 Delivery O2 Flow Rate FiO2 04/15/21 05:14 97.9 71 18 125/77 (93) 96 Room Air I&O- Last 24 Hours up to 6 AM 04/15/21 06:00 Intake Total 475 ml Output Total 600 ml Balance -125 ml SINDHU CULLEN DO Apr 15, 2021 11:48
[2021-04-15 14:00] VITALS: BP 124/76
[2021-04-15 22:00] VITALS: BP 125/75
[2021-04-16] MEDS: NS 1,000 ML IV SCH (03:49)
[2021-04-16] MEDS: ERTAPENEM SODIUM 1 GM in NS MINI-BAG PLUS 50 ML IV SCH (03:49)
[2021-04-16 06:00] VITALS: BP 124/75
[2021-04-16] MEDS: FOLIC ACID 1 MG TAB PO SCH (08:59)
[2021-04-16] MEDS: ENOXAPARIN 40MG/0.4ML SYRINGE (J1650 PER 10MG) SC SCH (09:00)
[2021-04-16] MEDS: ACETAMINOPHEN TAB 650MG DOSE (2X325MG) PO PRN ×2 (12:31→20:46)
[2021-04-16 14:00] VITALS: BP 147/93
--- NOTE | 2021-04-16 14:11 | IPNPDOC ---
Text Note Date of Service The patient was seen on 04/16/21. NOTE Hospitalist Progress Note Subjective: The patient reports that she still continues to have some dysuria and pressure in the lower abdomen, but otherwise does not have any additional complaints at this time. She did not have any events overnight. Objective: General: Awake, alert, oriented 3. Not in any acute distress. HEENT: Head normocephalic, atraumatic, sclera are nonicteric. Hearing is grossly intact to conversation. Respiratory: Clear to auscultation bilaterally with no wheezes, rales, or rhonchi. Cardiovascular: Regular rate and rhythm, with no rubs, gallops, or murmur. Abdomen: Soft, nontender, nondistended, no hepatosplenomegaly appreciated. Bowel sounds present. Extremities: 2+ pulses in the radial and dorsalis pedis bilaterally. No evidence of clubbing or cyanosis. Assessment: Urinary tract infection secondary to Klebsiella pneumonia (resistant to ampicillin, but sensitive to many others) Pyelonephritis of solitary right kidney Cystitis Status post left nephrectomy Allergies to many different antibiotics Chronic kidney disease stage III Cough and dyspnea secondary to what is suspected to be post Covid syndrome SLE Hx of Gout Class I obesity DVT prophylaxis with Lovenox Plan: This patient has a long-standing history of recurrent UTIs, which poses a considerable issue for her since she only has one kidney. This is further K by the fact that she has a very large list of allergies to drugs, in particular many different antibiotics. In 2018 she was on Invanz outpatient via PICC line for 6 weeks of treatment of Proteus mirabilis UTI. At this point she has a UTI secondary to Klebsiella pneumoniae, which is apparently a new bacteria for her. It is sensitive to Invanz, therefore we will keep her inpatient and give her this. Whether or not she will need a prolonged course of antibiotics is to be determined, we will plan on consulting infectious disease on Sunday. Otherwise, her renal function has now returned back to baseline, she continues to be afebrile, she does not have leukocytosis at this time. Will discontinue IV fluids now, and just continue with Invanz. VS,Fishbone, I+O VS, Fishbone, I+O Vital Signs Date Time Temp Pulse Resp B/P (MAP) Pulse Ox O2 Delivery O2 Flow Rate FiO2 04/16/21 06:00 98.6 69 18 124/75 (91) 95 Room Air I&O- Last 24 Hours up to 6 AM 04/16/21 06:00 Intake Total 2680 ml Output Total 3350 ml Balance -670 ml SACHIN CLARK 12, 2021 14:11
[2021-04-16] MEDS: estradioL 1 MG TAB PO SCH (20:38)
[2021-04-16 22:00] VITALS: BP 127/79
[2021-04-17] MEDS: ERTAPENEM SODIUM 1 GM in NS MINI-BAG PLUS 50 ML IV SCH (04:57)
[2021-04-17 06:00] VITALS: BP 129/80
[2021-04-17 08:33] LABS: HEMOGLOBIN 11.2 g/dl (12.0-15.5); MEAN CORPUSCULAR HGB CONC 32.9 g/dl (32.0-36.5); MEAN CORPUSCULAR VOLUME 91.2 fl (80.0-96.0); PLATELET COUNT, AUTOMATED 256 10^3/uL (150-450); RED BLOOD COUNT 3.73 10^6/uL (4.00-5.40)
[2021-04-17 08:56] LABS: CALCIUM LEVEL 8.7 MG/DL (8.5-10.1); CREATININE FOR GFR 1.09 MG/DL (0.55-1.30); GLOMERULAR FILTRATION RATE 57.5 (>58); POTASSIUM SERUM 4.3 MEQ/L (3.5-5.1)
[2021-04-17] MEDS: ENOXAPARIN 40MG/0.4ML SYRINGE (J1650 PER 10MG) SC SCH (09:37)
[2021-04-17] MEDS: FOLIC ACID 1 MG TAB PO SCH (09:37)
--- NOTE | 2021-04-17 11:06 | IPNPDOC ---
Text Note Date of Service The patient was seen on 04/17/21. NOTE Hospitalist Progress Note Subjective: The patient reports that she is feeling somewhat better, however still has some pressure and discomfort in the lower abdomen. No fevers or other acute events overnight. She does not have any other complaints at this time. Objective: General: Awake, alert, oriented 3. Not in any acute distress. HEENT: Head normocephalic, atraumatic, sclera are nonicteric. Hearing is grossly intact to conversation. Respiratory: Clear to auscultation bilaterally with no wheezes, rales, or rhonchi. Cardiovascular: Regular rate and rhythm, with no rubs, gallops, or murmur. Abdomen: Soft, nontender, nondistended, no hepatosplenomegaly appreciated. Bowel sounds present. Extremities: 2+ pulses in the radial and dorsalis pedis bilaterally. No evidence of clubbing or cyanosis. Assessment: Urinary tract infection secondary to Klebsiella pneumonia (resistant to ampicillin, but sensitive to many others) Pyelonephritis of solitary right kidney Cystitis Status post left nephrectomy Allergies to many different antibiotics Chronic kidney disease stage III Cough and dyspnea secondary to what is suspected to be post Covid syndrome SLE Hx of Gout Class I obesity DVT prophylaxis with Lovenox Plan: Continue Invanz, cultures indicate Klebsiella, and it is sensitive. Due to the fact that she has multiple allergies to antibiotics, selection is very limited. Will order a PICC line today, although I'm not entirely sure if this will happen over the weekend. Anticipate that she'll be on antibiotics for at least 7 days. I will try to touch bases with infectious disease either today or tomorrow to try and determine appropriate length of time she should be on antibiotics, and if this might be performed at the outpatient infusion unit rather than keeping her inpatient. VS,Fishbone, I+O VS, Fishbone, I+O Laboratory Tests 04/17/21 08:07 Vital Signs Date Time Temp Pulse Resp B/P (MAP) Pulse Ox O2 Delivery O2 Flow Rate FiO2 04/17/21 06:00 97.5 60 16 129/80 (96) 97 Room Air I&O- Last 24 Hours up to 6 AM 04/17/21 06:00 Intake Total 2269 ml Output Total 3000 ml Balance -731 ml SACHIN CLARK DO Apr 17, 2021 11:06
[2021-04-17 14:00] VITALS: BP 147/91
[2021-04-17] MEDS: ACETAMINOPHEN TAB 650MG DOSE (2X325MG) PO PRN (17:39)
[2021-04-17] MEDS: estradioL 1 MG TAB PO SCH (20:40)
[2021-04-17 22:00] VITALS: BP 136/76
[2021-04-18] MEDS: ERTAPENEM SODIUM 1 GM in NS MINI-BAG PLUS 50 ML IV SCH (03:30)
[2021-04-18 06:00] VITALS: BP 124/70
[2021-04-18 06:50] LABS: HEMATOCRIT 35.5 % (36.0-47.0); HEMOGLOBIN 11.6 g/dl (12.0-15.5); MEAN CORPUSCULAR HEMOGLOBIN 29.7 pg (27.0-33.0); MEAN CORPUSCULAR HGB CONC 32.7 g/dl (32.0-36.5); MEAN CORPUSCULAR VOLUME 90.8 fl (80.0-96.0); PLATELET COUNT, AUTOMATED 252 10^3/uL (150-450); RED BLOOD COUNT 3.91 10^6/uL (4.00-5.40); WHITE BLOOD COUNT 7.7 10^3/uL (4.0-10.0)
[2021-04-18 07:05] LABS: CALCIUM LEVEL 8.7 MG/DL (8.5-10.1); CREATININE FOR GFR 1.24 MG/DL (0.55-1.30); GLOMERULAR FILTRATION RATE 49.6 (>58); POTASSIUM SERUM 3.9 MEQ/L (3.5-5.1)
[2021-04-18] MEDS: FOLIC ACID 1 MG TAB PO SCH (09:01)
[2021-04-18] MEDS: ENOXAPARIN 40MG/0.4ML SYRINGE (J1650 PER 10MG) SC SCH (09:02)
[2021-04-18] MEDS ORDERED: LIDOCAINE 1% MDV 20ML VIAL As Ordered ONE (10:11)
[2021-04-18 14:00] VITALS: BP 132/85
--- NOTE | 2021-04-18 16:23 | IPNPDOC ---
Text Note Date of Service The patient was seen on 04/18/21. NOTE Hospitalist Progress Note Subjective: She continues to complain of pressure in the suprapubic region with voiding, but otherwise remainder of her pain is much improved, she no longer has dysuria. She still does have some aching in the flank region. Otherwise, the remainder of her review of systems is negative. Objective: General: Awake, alert, oriented 3. Not in any acute distress. HEENT: Head normocephalic, atraumatic, sclera are nonicteric. Hearing is grossly intact to conversation. Respiratory: Clear to auscultation bilaterally with no wheezes, rales, or rhonchi. Cardiovascular: Regular rate and rhythm, with no rubs, gallops, or murmur. Abdomen: Soft, nontender, nondistended, no hepatosplenomegaly appreciated. Bowel sounds present. Extremities: 2+ pulses in the radial and dorsalis pedis bilaterally. No evidence of clubbing or cyanosis. Assessment: Urinary tract infection secondary to Klebsiella pneumonia (resistant to ampicillin, but sensitive to many others) Pyelonephritis of solitary right kidney Cystitis Status post left nephrectomy Allergies to many different antibiotics Chronic kidney disease stage III Cough and dyspnea secondary to what is suspected to be post Covid syndrome SLE Hx of Gout Class I obesity DVT prophylaxis with Lovenox Plan: - Continue Invanz (Started 04/15/21), cultures indicate Klebsiella, and it is sensitive. - Due to the fact that she has multiple allergies to antibiotics, selection is very limited. - Midline ordered for today for prolonged antibiotic administration - Consult infectious disease today, will defer to their judgment regarding length of antibiotic therapy, and if she would be appropriate for outpatient infusions. VS,Fishbone, I+O VS, Fishbone, I+O Laboratory Tests 04/18/21 06:14 Vital Signs Date Time Temp Pulse Resp B/P (MAP) Pulse Ox O2 Delivery O2 Flow Rate FiO2 04/18/21 14:00 98.4 89 17 132/85 (101) 96 Room Air I&O- Last 24 Hours up to 6 AM 04/18/21 06:00 Intake Total 1750 ml Output Total 2000 ml Balance -250 ml SACHIN CLARK DO Apr 18, 2021 16:23
--- NOTE | 2021-04-18 16:52 | REP ---
PROCEDURE NAME: MIDLINE INSERTION W/ SITERITE CLINICAL INFORMATION: Antibiotic therapy. COMPARISON: None. PROCEDURE DESCRIPTION: The procedure was performed by SHIRA Mcintosh, under the direct supervision of Dr. Kinsey. The risks and benefits of the procedure were explained to the patient and an informed consent was obtained both verbally and written. Directly prior to the start of the procedure a formal time-out was completed in the procedure room. The left lateral brachial vein was localized using ultrasound guidance. The skin was prepped and draped in sterile fashion. Two mL of 1% lidocaine 10 mg/mL was used as a local anesthetic. Using ultrasound guidance the left lateral brachial vein was cannulated, and a 0.018 guidewire was inserted. The needle was removed and a 4.5 Thai dilator and peel-away sheath was inserted over the guidewire. A 4.5 Thai single lumen catheter was cut to a length of 10 cm. The dilator was removed and the catheter was inserted over the guidewire. The peel-away sheath was removed and the catheter was flushed with heparinized saline as per hospital protocol. The catheter was affixed to the skin and a sterile dressing was applied. The patient tolerated the procedure well and there were no immediate complications. CONCLUSION: Mid line insertion into the left lateral brachial vein. <Electronically signed by Lily Mcmahon > 04/18/21 [id number] <Electronically signed by Vargas Kinsey > 04/18/21 [id number]
--- NOTE | 2021-04-18 19:47 | REP ---
INDICATION: pyelo abnormal renal US. COMPARISON: Multiple the latest 05/27/2020 TECHNIQUE: Limited noncontrast enhanced standard helical CT FINDINGS: Patchy asymmetric interstitial and airspace opacities are seen in the lung bases. There are no pleural or pericardial effusions. Limited evaluation of the right kidney shows no gross abnormalities or significant changes from the prior exam. There is no nephroureterolithiasis, hydronephrosis, or hydroureter. There are no urinary bladder calcifications. The patient is status post left nephrectomy. Limited evaluation of the solid intra-abdominal organs and gallbladder show no gross abnormalities or significant changes from the prior exam. The pancreas and adrenal glands are unchanged and again seen to be within normal limits. Limited evaluation of the abdominal aorta and para aortic regions show no gross abnormalities. There is no free fluid or free air. Limited evaluation of the bowel loops and the mesenteries show no gross abnormalities. There is no evidence of a mass or adenopathy. A dorsal column stimulator is seen the tip of which is at the T9-10 level. The imaged osseous structures are within normal limits for the patient's age. IMPRESSION: 1. Abnormal lung field opacities as described above. Etiology uncertain. When compared to the patient's CT of the chest of 04/14/2021 these opacities appear to have improved slightly and likely post COVID-19 sequelae. 2. There is no evidence of acute intraabdominal or intrapelvic disease with findings as described above. <Electronically signed by Edgar Ferraro > 04/18/211942
[2021-04-18] MEDS ORDERED: SODIUM CHLORIDE 0.9% INJ 10 ML SYR IV PRN (21:00)
[2021-04-18] MEDS ORDERED: SODIUM CHLORIDE 0.9% INJ 10 ML SYR IV SCH (21:00)
[2021-04-18] MEDS: estradioL 1 MG TAB PO SCH (21:35)
[2021-04-18 22:00] VITALS: BP 125/78
[2021-04-19 06:00] VITALS: BP 129/76
[2021-04-19 06:47] LABS: HEMATOCRIT 34.7 % (36.0-47.0); HEMOGLOBIN 11.3 g/dl (12.0-15.5); MEAN CORPUSCULAR HEMOGLOBIN 29.7 pg (27.0-33.0); MEAN CORPUSCULAR HGB CONC 32.6 g/dl (32.0-36.5); MEAN CORPUSCULAR VOLUME 91.3 fl (80.0-96.0); PLATELET COUNT, AUTOMATED 236 10^3/uL (150-450); WHITE BLOOD COUNT 7.6 10^3/uL (4.0-10.0)
[2021-04-19 07:16] LABS: CREATININE FOR GFR 1.16 MG/DL (0.55-1.30); GLOMERULAR FILTRATION RATE 53.5 (>58)
[2021-04-19 07:17] LABS: CALCIUM LEVEL 8.6 MG/DL (8.5-10.1); POTASSIUM SERUM 4.1 MEQ/L (3.5-5.1)
[2021-04-19] MEDS ORDERED: ERTAPENEM SODIUM 1 GM in NS MINI-BAG PLUS 50 ML IV SCH (08:00)
[2021-04-19] MEDS: ENOXAPARIN 40MG/0.4ML SYRINGE (J1650 PER 10MG) SC SCH (08:58)
[2021-04-19] MEDS: FOLIC ACID 1 MG TAB PO SCH (08:58)
--- NOTE | 2021-04-19 09:52 | CR ---
INFECTIOUS DISEASE CONSULTATION DATE: 04/18/2021 CONSULTATION REQUESTED BY: Hospitalist. REASON FOR CONSULTATION: For evaluation of home I.V. antibiotics. HISTORY OF PRESENT ILLNESS: Blanca is a pleasant 46-year-old female with a history of left nephrectomy and recurrent urinary tract infection. The patient was hospitalized in late March with COVID-19 pneumonia and came back to the hospital complaining of dyspnea, dizziness, shortness of breath and cough; dry and nonproductive. Patient had received four days of I.V. Remdesivir in the hospital and was discharged home. She denied having any fever or chills. She was complaining of some right-sided back pain with pelvic pressure and symptoms of urinary tract infection that she usually has. She had no nausea or vomiting. She had no anorexia. Patient was started on I.V. Invanz for a UTI. Urine culture was positive for Klebsiella. Urinalysis had more than 20 white blood cells. PAST MEDICAL HISTORY: Significant for lupus, fibromyalgia, recurrent urinary tract infection, polycystic ovary syndrome, gout, migraines, obesity, anxiety and depression. PAST SURGICAL HISTORY: Left-sided nephrectomy for atrophic kidney, tonsillectomy with adenoidectomy, hysterectomy, oophorectomy, carpal tunnel surgery, . FAMILY HISTORY: Hypertension. SOCIAL HISTORY: Former smoker. Does not drink alcohol. She is engaged. She lives alone. ALLERGIES: Penicillin, Quinolones, Belladonna, Cephalexin, Ciprofloxacin, codeine, Doxycycline. MEDICATIONS: 1. Invanz 1 gram I.V. every 24 hours; currently day #4. 2. Albuterol nebs p.r.n. 3. Milk of Magnesia p.r.n. 4. Tylenol p.r.n. 5. Estradiol 2 mg p.o. q.h.s. LABORATORY DATA: White count 7.7, hemoglobin 11.6, hematocrit 35.5, platelets 252,000. Sodium 140, potassium 3.9, chloride 106, bicarb 26, BUN 14, creatinine 1.24, glucose 82, calcium 8.7. Uric acid 9. Ferritin 382. LDH 356. CPK 75. Procalcitonin less than 0.05. CRP 0.57. Blood cultures two sets were no growth after 72 hours. On 04/14/2021 urine culture had more than 100,000 Klebsiella pneumonia resistant to Ampicillin and Nitrofurantoin. IMAGING DATA: Renal ultrasound done on 04/14/2021 showed lobulated kidney, no evidence of right-sided hydronephrosis. CT scan recommended. Right kidney measures 14.5 x 6.7 cm. Left-sided nephrectomy. CT angiogram done on 04/14/2021 showed opacification of the pulmonary artery with no embolism, patchy areas of alveolar infiltrate consistent with COVID-19 pneumonia and 1 cm nodular area of the right lung field could be a small cyst, mass or nodule. PHYSICAL EXAMINATION: GENERAL: She is a pleasant healthy looking female in no acute distress. VITAL SIGNS: Temperature 98.4, pulse 89, respirations 17, blood pressure 132/85, O2 sat 98% on room air. HEART: Normal S1, S2. No murmurs, rubs or gallops. LUNGS: Clear. No wheezes, rales or rhonchi. ABDOMEN: Soft, nontender. No hepatosplenomegaly. No suprapubic tenderness. BACK: Right CVA tenderness. Left nephrectomy scar well healed. No lumbosacral tenderness. EXTREMITIES: No cyanosis, clubbing or edema. No calf tenderness. SKIN: With multiple tattoos. No rashes. NECK: Supple with no adenopathy. Oropharynx is clear. IMPRESSION: This is a 46-year-old female with a history of left nephrectomy, recurrent urinary tract infection, previous history of nephrolithiasis of the right kidney, hyperuricemia with gout, who presents with shortness of breath which is residual from her COVID-19 pneumonia and right-sided pyelonephritis. On ultrasound of her kidney, she has lobulation of the right kidney with recommendation from radiology to get a CT. She has somewhat improved on I.V. Invanz 1 gram daily. PLAN: Obtain CT of the abdomen and pelvis without contrast. Continue with I.V. Invanz 1 gram daily for a total of 10 days. I have filled the prescription to get 5 days of I.V. antibiotics through the infusion unit. Midline was inserted today. Encouraged fluid intake. May need treatment for hyperuricemia to avoid any complication of kidney disease. MTDD
--- NOTE | 2021-04-19 13:45 | DS.PDOC ---
Discharge Summary General Date of Admission Apr 17, 2021 at 10:39 Date of Discharge 04/19/21 Discharge Summary PROCEDURES PERFORMED DURING STAY: [None]. ADMITTING/DISCHARGE DIAGNOSES: Urinary tract infection secondary to Klebsiella pneumonia (resistant to ampicillin, but sensitive to many others) Pyelonephritis of solitary right kidney Cystitis COMPLICATIONS/CHIEF COMPLAINT: LOUISA. HISTORY OF PRESENT ILLNESS: From admitting attending H&P:46 yr old F was diagnosed w COVID 19 on April 02 but continues to feel dizzy, weak, short of breath and is coughing; today is the last day of her quarantine. She had planned to f/u w her PCP but was not able to bc she is still on quarantine so she came to the ER. She denies having a poor appetite or having n/v/d. She has pressure when she urinates and back pain which are symptoms that she typically has when she has a UTI HOSPITAL COURSE: Patient was found to have urinary tract infection secondary to Klebsiella pneumonia resistant to ampicillin and sensitive to others but patient has a reported large variety of allergies to antibiotics and so she was started attending course of ertapenem. She was seen by infectious diseases who prescribed for 5 additional days of ertapenem at the infusion clinic for the midline placed today 04/19/2021. DISCHARGE MEDICATIONS: Please see below. ALLERGIES: Please see below. PHYSICAL EXAMINATION ON DISCHARGE: Today on day of discharge she reports minimal suprapubic pressure and no CVA tenderness. VITAL SIGNS: Please see below. Constitutional: Awake and alert, in no apparent distress ENT: Sclera are clear. Mucosa is moist. Respiratory: Lungs CTA bilaterally. No respiratory distress. Cardiovascular: RRR S1 and S2 are normal, no murmur Gastrointestinal: Abdomen is soft, non distended, non tender, BS present. Musculoskeletal: No edema. No joint deformities. Neurologic: No focal neurological deficit. Mental Status: A&O x3, normal affect LABORATORY DATA: Please see below. IMAGING: See chart PROGNOSIS: Fair ACTIVITY: [As tolerated]. DIET: Regular diet DISPOSITION: Home DISCHARGE INSTRUCTIONS: Please follow up with your primary care physician within 1 week from discharge. If you do not have one, please follow up with us to schedule an appointment. Please keep all of your follow up appointments. Please call central to book your appointments with hospital specialists. Please take all your medications as prescribed. Please call/come to Clinic or go to the Emergency Department if - Temp >101, intractable Nausea/Vomiting, Diarrhea, Mouth sores, Headaches, Altered mental status, Seizures, sudden onset of swelling, bleeding, shortness of breath or chest pain. ITEMS TO FOLLOWUP ON ON OUTPATIENT: Follow-up with PCP within 5 days of discharge DISCHARGE CONDITION: [Stable]. TIME SPENT ON DISCHARGE: 35 minutes. Vital Signs/I&Os Vital Signs Date Time Temp Pulse Resp B/P (MAP) Pulse Ox O2 Delivery O2 Flow Rate FiO2 04/19/21 06:00 98.9 75 18 129/76 (93) 97 Room Air I&O- Last 24 Hours up to 6 AM 04/19/21 06:00 Intake Total 1660 ml Output Total 2200 ml Balance -540 ml Laboratory Data Labs 24H Laboratory Tests 2 04/19/21 06:18: Nucleated Red Blood Cells % (auto) 0.0, Anion Gap 5L, Glomerular Filtration Rate 53.5L, Calcium Level 8.6 CBC/BMP Laboratory Tests 04/19/21 06:18 Microbiology Microbiology 04/14/21 Urine Culture - Final, Complete Klebsiella Pneumoniae 04/14/21 Blood Culture - Preliminary, Resulted No Growth after 72 hours. All specime... 04/14/21 Blood Culture - Preliminary, Resulted No Growth after 72 hours. All specime... Discharge Medications Scheduled Allopurinol (Zyloprim) 300 Mg Tablet, 300 MG PO QHS, (Reported) Estradiol (Estradiol) 2 Mg Tablet, 2 MG PO QHS, (Reported) Folic Acid (Folic Acid) 1 Mg Tablet, 1 MG PO DAILY Hydroxychloroquine Sulfate (Plaquenil) 200 Mg Tablet, 200 MG PO BID, (Reported) Methotrexate Sodium (Methotrexate) 2.5 Mg Tablet, 10 MG PO QWEEK, (Reported) SUNDAY Scheduled PRN Albuterol Sulfate (Proair Hfa) 8.5 Gm Hfa.aer.ad, 2 PUFF INH Q4-6HP PRN for wheezing Allergies Coded Allergies: Quinolones (Verified Allergy, Severe, cipro, levaquin - hives, breathing problem, 04/28/19) cephalexin (Verified Allergy, Severe, hives, breathing problem, 04/28/19) ciprofloxacin (Verified Allergy, Severe, hives, breathing problem, 04/28/19) diclofenac (Verified Allergy, Severe, hives, breathing problem, 04/28/19) erythromycin base (Verified Allergy, Severe, N/V, hives, breathing problem, 04/28/19) hyoscyamine (Verified Allergy, Severe, hives, breathing problem, 04/28/19) indomethacin (Verified Allergy, Severe, anaphylaxis, 04/28/19) levofloxacin (Verified Allergy, Severe, hives, breathing problem, 04/28/19) methenamine (Verified Allergy, Severe, hives, breathing problem, 04/28/19) nitrofurantoin (Verified Allergy, Severe, macrobid - hives, breathing problem, 04/28/19) rofecoxib (Verified Allergy, Severe, hives, breathing problem, 04/28/19) tramadol (Verified Allergy, Severe, hives, breathing problem, 04/28/19) Penicillins (Verified Allergy, Intermediate, augmentin, ampicillin- hives, 04/28/19) amoxicillin (Verified Allergy, Intermediate, hives, 04/28/19) ampicillin (Verified Allergy, Intermediate, hives, 04/28/19) belladonna alkaloids (Verified Allergy, Intermediate, hives, 04/28/19) clavulanic acid (Verified Allergy, Intermediate, hives, 04/28/19) codeine (Verified Allergy, Intermediate, hives, 04/28/19) doxycycline (Verified Allergy, Intermediate, hives, 04/28/19) ethinyl estradiol (Verified Allergy, Intermediate, hives, 04/28/19) fosfomycin (Verified Allergy, Intermediate, hives, 04/28/19) hydrocodone (Verified Allergy, Intermediate, hives, 04/28/19) norelgestromin (Verified Allergy, Intermediate, hives, 04/28/19) norgestimate (Verified Allergy, Intermediate, hives, 04/28/19) phenazopyridine (Verified Allergy, Intermediate, hives, 04/28/19) propoxyphene (Verified Allergy, Intermediate, darvocet - hives, 04/28/19) sulfamethoxazole (Verified Allergy, Intermediate, hives, 04/28/19) trimethoprim (Verified Allergy, Intermediate, hives, 04/28/19) dronabinol (Verified Allergy, Unknown, 04/28/19) methylene blue (Verified Allergy, Unknown, 04/28/19) midazolam (Verified Allergy, Unknown, 04/28/19) salicylates (Verified Allergy, Unknown, 04/28/19) OBED MARIN MD Apr 19, 2021 13:44
[2021-04-19 14:00] VITALS: BP 135/77
[2021-04-20] MEDS ORDERED: METHOTREXATE 2.5 MG TAB (J8610 PER 2.5MG) PO SCH (09:00)
== END 2021-04-19 15:30 | disposition home health service (06) | DRG 690 ==
LOC: M ED 14:28 → M ED INP 21:54 → ENRESERV 23:40 → M MS5PR 04-15 00:10 → OBSVTOIN 04-17 10:39
PROVIDERS: ADMIT Internal Medicine; ATTEND Family Medicine
PROC: 02HV33Z Insertion of Infusion Device into Superior Vena Cava, Percutaneous Approach (ICD-10-PCS; principal; 2021-04-18 15:00)
DX: N39.0 Urinary tract infection, site not specified (principal); N12 Tubulo-interstitial nephritis, not specified as acute or chronic; R05 Cough; R06.00 Dyspnea, unspecified; Z86.16 Personal history of COVID-19; B96.1 Klebsiella pneumoniae [K. pneumoniae] as the cause of diseases classified elsewhere; Z79.899 Other long term (current) drug therapy; Z88.8 Allergy status to other drugs, medicaments and biological substances; Z88.0 Allergy status to penicillin; Z88.5 Allergy status to narcotic agent; M79.7 Fibromyalgia; M10.9 Gout, unspecified; G43.909 Migraine, unspecified, not intractable, without status migrainosus; E66.9 Obesity, unspecified; Z87.891 Personal history of nicotine dependence; F41.9 Anxiety disorder, unspecified; F32.9 Major depressive disorder, single episode, unspecified; Z68.32 Body mass index [BMI] 32.0-32.9, adult; N18.30 Chronic kidney disease, stage 3 unspecified; N30.90 Cystitis, unspecified without hematuria

== ENCOUNTER → 2021-04-28 | Outpatient (REF) | payer MEDICARE, MEDICAID ==
[~2021-04-28] MED LIST changes: +FOLI1TAB11 PO
== END ==
LOC: M LAB REF 16:38
PROVIDERS: ATTEND Internal Medicine Nephrology
DX: R80.1 Persistent proteinuria, unspecified (principal)

== ENCOUNTER → 2021-07-29 | Outpatient (REF) | payer MEDICARE, MEDICAID | LOC: M LAB REF 13:06 | PROVIDERS: ATTEND Internal Medicine Nephrology | DX: N39.0 Urinary tract infection, site not specified (principal); E83.42 Hypomagnesemia ==

== ENCOUNTER 2021-08-08 14:21 | Outpatient (CLI) | payer MEDICARE, MEDICAID ==
[~2021-08-08] VITALS: Ht 170.2 cm; Wt 92.7 kg
[~2021-08-08 14:21] MED LIST changes: -LIDOCAINE 1% MDV 20ML VIAL As Ordered ONE; -SODIUM CHLORIDE 0.9% INJ 10 ML SYR IV PRN; -SODIUM CHLORIDE 0.9% INJ 10 ML SYR IV SCH
[2021-08-08 15:29] VITALS: BP 151/81
[2021-08-08] MEDS ORDERED: ERTAPENEM SODIUM 1 GM in NS MINI-BAG PLUS 50 ML IV SCH (15:30)
[2021-08-08] MEDS ORDERED: SODIUM CHLORIDE 0.9% INJ 10 ML SYR IV PRN (16:05)
[2021-08-08 16:13] VITALS: BP 135/81
[2021-08-08] MEDS ORDERED: SODIUM CHLORIDE 0.9% INJ 10 ML SYR IV SCH (18:00)
== END 2021-08-08 16:15 | disposition home or self-care (01) ==
LOC: M INFU 14:21
PROVIDERS: ATTEND Internal Medicine Nephrology
DX: Z87.440 Personal history of urinary (tract) infections (principal); Z88.0 Allergy status to penicillin; Z88.1 Allergy status to other antibiotic agents; Z88.8 Allergy status to other drugs, medicaments and biological substances; Z88.6 Allergy status to analgesic agent

== ENCOUNTER → 2021-08-08 | Outpatient (CLI) | payer MEDICARE, MEDICAID ==
[~2021-08-08] MED LIST changes: +LIDOCAINE 1% MDV 20ML VIAL As Ordered ONE; +MAGN400T2 PO; +SODIUM CHLORIDE 0.9% INJ 10 ML SYR IV PRN; +SODIUM CHLORIDE 0.9% INJ 10 ML SYR IV SCH
[2021-08-08 14:30] VITALS: BP 145/85
--- NOTE | 2021-08-08 16:05 | REP ---
INDICATION: UTI/ANTIBIOTICS COMPARISON: NONE TECHNIQUE: The procedure was performed under the direct supervision of Dr. James. The risks and benefits of the procedure were explained to the patient and informed consent obtained. The left basilic vein was localized using ultrasound guidance. The skin was prepped and draped in a sterile fashion. 1 mL of 1% lidocaine was used as a local anesthetic. Using ultrasound guidance the basilic vein was cannulated and a 0.018 guidewire was inserted and advanced to the SVC. The needle was removed a 4.5 [place] dilator and peel-away sheath was inserted over the guidewire. A 4.5 [place] single lumen catheter was cut to a length of 41 cm. The dilator was removed and the catheter was inserted over the guidewire with the tip ending in the SVC. The peel-away sheath removed and the catheter was flushed with heparinized saline as per hospital protocol. The catheter was affixed to the skin and a sterile dressing was applied. Patient tolerated the procedure well and there were no immediate complications. Estimated blood loss: Less than 1 mL 0.2 minutes of fluoroscopy time was utilized for this procedure. FINDINGS: None IMPRESSION: PICC line insertion left basilic vein with the tip ending in the SVC. <Electronically signed by Bora Yates > 08/08/21 1532 <Electronically signed by Enrique James > 08/08/21 [id number]
== END ==
LOC: M IRPRO 14:22
PROVIDERS: ATTEND Internal Medicine Nephrology
DX: N39.0 Urinary tract infection, site not specified (principal); N28.9 Disorder of kidney and ureter, unspecified; Z79.2 Long term (current) use of antibiotics; Z87.440 Personal history of urinary (tract) infections; Z88.0 Allergy status to penicillin; Z88.1 Allergy status to other antibiotic agents; Z88.8 Allergy status to other drugs, medicaments and biological substances; Z88.6 Allergy status to analgesic agent
CPT/HCPCS: 36571; 96365; C1751; J1335; J1642; J1644

== ENCOUNTER 2021-08-09 15:09 | Outpatient (CLI) | payer MEDICARE, MEDICAID ==
[~2021-08-09] VITALS: Ht 170.2 cm; Wt 92.7 kg
[~2021-08-09 15:09] MED LIST changes: +SODIUM CHLORIDE 0.9% INJ 10 ML SYR IV PRN; +SODIUM CHLORIDE 0.9% INJ 10 ML SYR IV SCH
[2021-08-09 15:15] VITALS: BP 125/76
[2021-08-09] MEDS ORDERED: ERTAPENEM SODIUM 1 GM in NS MINI-BAG PLUS 50 ML IV ONE (15:30)
[2021-08-09 16:14] VITALS: BP 148/80
== END 2021-08-09 16:15 | disposition home or self-care (01) ==
LOC: M INFU 15:09
PROVIDERS: ATTEND Internal Medicine Nephrology
DX: Z87.440 Personal history of urinary (tract) infections (principal); Z88.0 Allergy status to penicillin; Z88.1 Allergy status to other antibiotic agents; Z88.8 Allergy status to other drugs, medicaments and biological substances; Z88.6 Allergy status to analgesic agent
CPT/HCPCS: 96365; J1335; J1642

== ENCOUNTER 2021-08-10 14:32 | Outpatient (CLI) | payer MEDICARE, MEDICAID ==
[~2021-08-10] VITALS: Ht 170.2 cm; Wt 92.7 kg
[~2021-08-10 14:32] MED LIST changes: -SODIUM CHLORIDE 0.9% INJ 10 ML SYR IV PRN; -SODIUM CHLORIDE 0.9% INJ 10 ML SYR IV SCH
[2021-08-10 14:40] VITALS: BP 146/95
[2021-08-10] MEDS ORDERED: SODIUM CHLORIDE 0.9% INJ 10 ML SYR IV PRN (15:15)
[2021-08-10 15:20] VITALS: BP 115/75
[2021-08-10] MEDS ORDERED: ERTAPENEM SODIUM 1 GM in NS MINI-BAG PLUS 50 ML IV ONE (15:30)
[2021-08-10] MEDS ORDERED: SODIUM CHLORIDE 0.9% INJ 10 ML SYR IV SCH (18:00)
== END 2021-08-10 15:30 | disposition home or self-care (01) ==
LOC: M INFU 14:32
PROVIDERS: ATTEND Internal Medicine Nephrology
DX: Z87.440 Personal history of urinary (tract) infections (principal); Z88.0 Allergy status to penicillin; Z88.1 Allergy status to other antibiotic agents; Z88.8 Allergy status to other drugs, medicaments and biological substances; Z88.6 Allergy status to analgesic agent
CPT/HCPCS: 96365; J1335; J1642

== ENCOUNTER 2021-08-11 14:44 | Outpatient (CLI) | payer MEDICARE, MEDICAID ==
[~2021-08-11] VITALS: Ht 170.2 cm; Wt 92.7 kg
[~2021-08-11 14:44] MED LIST changes: +SODIUM CHLORIDE 0.9% INJ 10 ML SYR IV PRN; +SODIUM CHLORIDE 0.9% INJ 10 ML SYR IV SCH
[2021-08-11 14:45] VITALS: BP 124/68
[2021-08-11] MEDS: ERTAPENEM SODIUM 1 GM in NS MINI-BAG PLUS 50 ML IV ONE ×2 (15:00→15:55)
[2021-08-11 15:30] VITALS: BP 124/87
== END 2021-08-11 15:45 | disposition home or self-care (01) ==
LOC: M INFU 14:44
PROVIDERS: ATTEND Internal Medicine Nephrology
DX: Z87.440 Personal history of urinary (tract) infections (principal); Z88.1 Allergy status to other antibiotic agents; Z88.8 Allergy status to other drugs, medicaments and biological substances; Z88.5 Allergy status to narcotic agent; Z88.6 Allergy status to analgesic agent
CPT/HCPCS: 96365; J1335; J1642

== ENCOUNTER 2021-08-12 14:37 | Outpatient (CLI) | payer MEDICARE, MEDICAID ==
[~2021-08-12] VITALS: Ht 170.2 cm; Wt 92.7 kg
[~2021-08-12 14:37] MED LIST changes: -SODIUM CHLORIDE 0.9% INJ 10 ML SYR IV PRN; -SODIUM CHLORIDE 0.9% INJ 10 ML SYR IV SCH
[2021-08-12] MEDS: ERTAPENEM SODIUM 1 GM in NS MINI-BAG PLUS 50 ML IV ONE ×2 (14:45→15:17)
[2021-08-12 14:57] VITALS: BP 152/79
[2021-08-12] MEDS ORDERED: SODIUM CHLORIDE 0.9% INJ 10 ML SYR IV PRN (15:10)
[2021-08-12 15:23] VITALS: BP 124/87
[2021-08-12] MEDS ORDERED: SODIUM CHLORIDE 0.9% INJ 10 ML SYR IV SCH (18:00)
== END 2021-08-12 15:28 | disposition home or self-care (01) ==
LOC: M INFU 14:37
PROVIDERS: ATTEND Internal Medicine Nephrology
DX: Z87.440 Personal history of urinary (tract) infections (principal); Z88.0 Allergy status to penicillin; Z88.1 Allergy status to other antibiotic agents; Z88.6 Allergy status to analgesic agent; Z88.8 Allergy status to other drugs, medicaments and biological substances
CPT/HCPCS: 96365; J1335; J1642

== ENCOUNTER 2021-08-13 10:32 | Outpatient (CLI) | payer MEDICARE, MEDICAID ==
[2021-08-13] MEDS ORDERED: SODIUM CHLORIDE 0.9% INJ 10 ML SYR IV PRN (10:55)
[2021-08-13] MEDS ORDERED: ERTAPENEM SODIUM 1 GM in NS MINI-BAG PLUS 50 ML IV SCH (11:00)
[2021-08-13] MEDS ORDERED: SODIUM CHLORIDE 0.9% INJ 10 ML SYR IV SCH (18:00)
== END 2021-08-13 11:40 | disposition home or self-care (01) ==
LOC: M INFU 10:32 → M MS5PR 10:34 → M INFU 11:40
PROVIDERS: ATTEND Internal Medicine Nephrology
DX: Z87.440 Personal history of urinary (tract) infections (principal); Z88.0 Allergy status to penicillin; Z88.1 Allergy status to other antibiotic agents; Z88.8 Allergy status to other drugs, medicaments and biological substances; Z88.6 Allergy status to analgesic agent
CPT/HCPCS: 96365; J1335; J1642

== ENCOUNTER 2021-08-14 10:31 | Outpatient (CLI) | payer MEDICARE, MEDICAID ==
[2021-08-14] MEDS ORDERED: ERTAPENEM SODIUM 1 GM in NS MINI-BAG PLUS 50 ML IV SCH (11:05)
[2021-08-14] MEDS ORDERED: SODIUM CHLORIDE 0.9% INJ 10 ML SYR IV PRN (11:05)
[2021-08-14] MEDS ORDERED: SODIUM CHLORIDE 0.9% INJ 10 ML SYR IV SCH (18:00)
== END 2021-08-14 11:50 | disposition home or self-care (01) ==
LOC: M INFU 10:31 → M MS5PR 10:34 → M INFU 11:50
PROVIDERS: ATTEND Internal Medicine Nephrology
DX: Z87.440 Personal history of urinary (tract) infections (principal); Z88.0 Allergy status to penicillin; Z88.1 Allergy status to other antibiotic agents; Z88.8 Allergy status to other drugs, medicaments and biological substances; Z88.6 Allergy status to analgesic agent
CPT/HCPCS: 96365; J1335; J1642

== ENCOUNTER 2021-08-15 14:49 | Outpatient (CLI) | payer MEDICARE, MEDICAID ==
[~2021-08-15] VITALS: Ht 170.2 cm; Wt 92.7 kg
[2021-08-15 15:05] VITALS: BP 128/78
[2021-08-15] MEDS ORDERED: ERTAPENEM SODIUM 1 GM in NS MINI-BAG PLUS 50 ML IV SCH (15:30)
[2021-08-15] MEDS ORDERED: SODIUM CHLORIDE 0.9% INJ 10 ML SYR IV PRN (15:50)
[2021-08-15 16:05] VITALS: BP 132/76
[2021-08-15] MEDS ORDERED: SODIUM CHLORIDE 0.9% INJ 10 ML SYR IV SCH (18:00)
== END 2021-08-15 16:05 | disposition home or self-care (01) ==
LOC: M INFU 14:49
PROVIDERS: ATTEND Internal Medicine Nephrology
DX: Z87.440 Personal history of urinary (tract) infections (principal); Z88.0 Allergy status to penicillin; Z88.1 Allergy status to other antibiotic agents; Z88.6 Allergy status to analgesic agent; Z88.8 Allergy status to other drugs, medicaments and biological substances
CPT/HCPCS: 96365; J1335; J1642

== ENCOUNTER 2021-08-16 14:32 | Outpatient (CLI) | payer MEDICARE, MEDICAID ==
[~2021-08-16] VITALS: Ht 170.2 cm; Wt 92.7 kg
[2021-08-16 14:35] VITALS: BP 121/85
[2021-08-16] MEDS ORDERED: SODIUM CHLORIDE 0.9% INJ 10 ML SYR IV PRN (14:45)
[2021-08-16] MEDS ORDERED: ERTAPENEM SODIUM 1 GM in NS MINI-BAG PLUS 50 ML IV ONE (15:00)
[2021-08-16 15:20] VITALS: BP 127/78
[2021-08-16] MEDS ORDERED: SODIUM CHLORIDE 0.9% INJ 10 ML SYR IV SCH (18:00)
== END 2021-08-16 15:20 | disposition home or self-care (01) ==
LOC: M INFU 14:32
PROVIDERS: ATTEND Internal Medicine Nephrology
DX: Z87.440 Personal history of urinary (tract) infections (principal); Z88.0 Allergy status to penicillin; Z88.1 Allergy status to other antibiotic agents; Z88.8 Allergy status to other drugs, medicaments and biological substances; Z88.6 Allergy status to analgesic agent
CPT/HCPCS: 96365; J1335; J1642

== ENCOUNTER 2021-08-17 14:45 | Outpatient (CLI) | payer MEDICARE, MEDICAID ==
[~2021-08-17] VITALS: Ht 170.2 cm; Wt 92.7 kg
[~2021-08-17 14:45] MED LIST changes: +SODIUM CHLORIDE 0.9% INJ 10 ML SYR IV PRN; +SODIUM CHLORIDE 0.9% INJ 10 ML SYR IV SCH
[2021-08-17 15:21] VITALS: BP 135/82
[2021-08-17] MEDS ORDERED: ERTAPENEM SODIUM 1 GM in NS MINI-BAG PLUS 50 ML IV ONE (15:30)
[2021-08-17 16:10] VITALS: BP 128/78
== END 2021-08-17 16:10 | disposition home or self-care (01) ==
LOC: M INFU 14:45
PROVIDERS: ATTEND Internal Medicine Nephrology
DX: Z87.440 Personal history of urinary (tract) infections (principal); Z88.0 Allergy status to penicillin; Z88.1 Allergy status to other antibiotic agents; Z88.6 Allergy status to analgesic agent; Z88.8 Allergy status to other drugs, medicaments and biological substances
CPT/HCPCS: 96365; J1335; J1642

== ENCOUNTER → 2021-08-22 | Outpatient (CLI) | payer MEDICARE, MEDICAID ==
[~2021-08-22] MED LIST changes: -ESTR2TAB2 PO; +ESTR2TAB3 PO; -SODIUM CHLORIDE 0.9% INJ 10 ML SYR IV PRN; -SODIUM CHLORIDE 0.9% INJ 10 ML SYR IV SCH
[2021-08-22 14:18] LABS: BASO % 0.7 % (0.0-1.0); EOS # 0.1 10^3/uL (0.0-0.5); EOS % 1.2 % (0.0-3.0); HEMATOCRIT 40.5 % (36.0-47.0); HEMOGLOBIN 13.3 g/dl (12.0-15.5); LYMPH # 1.6 10^3/uL (1.5-5.0); LYMPH % 26.6 % (24.0-44.0); MEAN CORPUSCULAR HEMOGLOBIN 30.1 pg (27.0-33.0); MEAN CORPUSCULAR HGB CONC 32.8 g/dl (32.0-36.5); MEAN CORPUSCULAR VOLUME 91.6 fl (80.0-96.0); MONO # 0.4 10^3/uL (0.0-0.8); NEUTROPHILS # 3.8 10^3/uL (1.5-8.5); NEUTROPHILS % 64.3 % (36.0-66.0); PLATELET COUNT, AUTOMATED 300 10^3/uL (150-450); RED BLOOD COUNT 4.42 10^6/uL (4.00-5.40); WHITE BLOOD COUNT 5.9 10^3/uL (4.0-10.0)
[2021-08-22 14:38] LABS: ALBUMIN 3.6 GM/DL (3.2-5.2); BILIRUBIN,TOTAL 0.4 MG/DL (0.2-1.0); C REACTIVE PROTEIN QUANTITATIV 0.36 MG/DL (0.00-0.30); CALCIUM LEVEL 8.7 MG/DL (8.5-10.1); CREATININE FOR GFR 1.21 MG/DL (0.55-1.30); POTASSIUM SERUM 4.9 MEQ/L (3.5-5.1); TOTAL PROTEIN 7.1 GM/DL (6.4-8.2)
[2021-08-22 21:37] LABS: APPEARANCE, URINE CLOUDY (CLEAR); BACTERIA, URINE AUTO NEGATIVE (NEGATIVE); BILIRUBIN, URINE AUTO NEGATIVE (NEGATIVE); BLOOD, URINE BLOOD 1+ (NEGATIVE); COLOR, URINE YELLOW (YELLOW); GLUCOSE, URINE (UA) AUTO NEGATIVE (NEGATIVE); KETONE, URINE AUTO NEGATIVE (NEGATIVE); LEUKOCYTE ESTERASE, URINE AUTO 3+ (NEGATIVE); MUCUS, URINE SMALL (NEGATIVE); NITRITE, URINE AUTO NEGATIVE (NEGATIVE); PROTEIN, URINE AUTO 2+ mg/dL (NEGATIVE); RBC, URINE AUTO 23 /HPF (0-3); SQUAMOUS EPITHELIAL CELL UR AU 8 /HPF (0-6); UROBILINOGEN, URINE AUTO 0.2 mg/dL (0.0-2.0); WBC, URINE AUTO 29 /HPF (0-3)
== END ==
LOC: M PLALAB 11:31
PROVIDERS: ATTEND Internal Medicine Infectious Disease
DX: N12 Tubulo-interstitial nephritis, not specified as acute or chronic (principal)
CPT/HCPCS: 36415; 80053; 81001; 85025; 86140; 87086; G0463

== ENCOUNTER → 2021-08-31 | Outpatient (CLI) | payer MEDICARE, MEDICAID ==
--- NOTE | 2021-08-31 12:00 | REP ---
INDICATION: PYELONEPHRITIS. COMPARISON: 04/14/2021. TECHNIQUE: Real-time sonographic evaluation of the right kidney is performed. FINDINGS: There has been a prior left nephrectomy. Right renal cortical echogenicity pattern is normal and contours are smooth. There is no evidence of hydronephrosis, cyst, mass, or calculus in either kidney. No abnormality is seen in the left renal fossa. The right kidney measures 13.8 x 7.0 x 7.3 cm. The urinary bladder is unremarkable. A weak right ureteral jet is visualized with Doppler color evaluation. IMPRESSION: Negative right renal ultrasound. <Electronically signed by Vargas Kinsey > 08/31/21 [id number]
== END ==
LOC: M RAD 09:52
PROVIDERS: ATTEND Internal Medicine Infectious Disease
DX: N12 Tubulo-interstitial nephritis, not specified as acute or chronic (principal)

== ENCOUNTER → 2021-09-07 | Outpatient (REF) | payer MEDICARE, MEDICAID ==
[2021-09-07 11:26] LABS: BASO % 0.5 % (0.0-1.0); EOS # 0.1 10^3/uL (0.0-0.5); EOS % 2.4 % (0.0-3.0); HEMATOCRIT 37.6 % (36.0-47.0); HEMOGLOBIN 12.4 g/dl (12.0-15.5); LYMPH # 1.8 10^3/uL (1.5-5.0); LYMPH % 29.6 % (24.0-44.0); MONO # 0.7 10^3/uL (0.0-0.8); MONO % 11.3 % (2.0-8.0); NEUTROPHILS # 3.3 10^3/uL (1.5-8.5); PLATELET COUNT, AUTOMATED 294 10^3/uL (150-450); RED BLOOD COUNT 4.13 10^6/uL (4.00-5.40); WHITE BLOOD COUNT 5.9 10^3/uL (4.0-10.0)
[2021-09-07 11:53] LABS: ALBUMIN 3.2 GM/DL (3.2-5.2); BILIRUBIN,TOTAL 0.4 MG/DL (0.2-1.0); CALCIUM LEVEL 8.9 MG/DL (8.5-10.1); CREATININE FOR GFR 1.09 MG/DL (0.55-1.30); GLOMERULAR FILTRATION RATE 57.5 (>58); POTASSIUM SERUM 4.3 MEQ/L (3.5-5.1); TOTAL PROTEIN 6.4 GM/DL (6.4-8.2); URIC ACID 6.5 MG/DL (2.6-6.0)
[2021-09-07 11:56] LABS: ERYTHROCYTE SEDIMENTATION RATE 21 mm/hr (0-20)
== END ==
LOC: M LAB REF 10:59
PROVIDERS: ATTEND Internal Medicine Infectious Disease
DX: N12 Tubulo-interstitial nephritis, not specified as acute or chronic (principal); N18.30 Chronic kidney disease, stage 3 unspecified; B96.4 Proteus (mirabilis) (morganii) as the cause of diseases classified elsewhere

== ENCOUNTER → 2021-09-07 | Outpatient (CLI) | payer MEDICARE, MEDICAID ==
--- NOTE | 2021-09-07 18:01 | REP ---
INDICATION: UTI, CALCULUS OF KIDNEY. COMPARISON: CT 04/18/2021, ultrasound 08/31/2021 TECHNIQUE: Noncontrast images through the abdomen and pelvis with coronal and sagittal bone window reconstructions. FINDINGS: CT abdomen: The lung bases show complete clearing of the patchy opacities noted bilaterally throughout lower lung zones on 04/18/2021. No effusion, scarring or residual nodule/infiltrate. Heart not enlarged there is no pericardial thickening or effusion. No hiatal hernia. Liver, spleen, gallbladder, pancreas and adrenal glands are unremarkable. Patient is status post left nephrectomy with surgical clips in the renal fossa. There is some compensatory hypertrophy of the right kidney also scarring in its lower pole and some lobation noted. This appears stable no renal stone or hydronephrosis no hydroureter or ureteral stone. The aorta is without aneurysm is a few calcifications the. No periaortic, other retroperitoneal or mesenteric pathologic sized adenopathy small bowel loops without dilatation, air-fluid levels or adjacent inflammatory change. Colon shows stool and gas scattered throughout without dilatation, stricture or mass no colitis or diverticulitis. Clips at the inferior margin of the cecum consistent with prior appendectomy the right flank shows a dorsal column stimulator device with its lead tip extending to the T8-9 level. Degenerative changes and vacuum phenomenon lower lumbar spine without destructive lesion or fracture visualized ribs intact. No ascites, free air or perforation. CT pelvis: The sacrum, pelvis and hips were unremarkable. The lumbosacral junction shows sacralization transverse processes of L5 with fusion with the S1 sacral ala as anatomic variation. The distal left colon, sigmoid and rectum unremarkable. The uterus is anteverted and not enlarged. No pelvic or adnexal mass, lymphadenopathy or free fluid. Bladder without mass, wall thickening or stone. I see no dilated distal ureter. Small bowel loops in the pelvis were intact. No ventral or inguinal hernia nor inguinal adenopathy. IMPRESSION: 1. Complete clearing of the lower lobe the lung crowder the densities the since the 04/18/2021 study with no residual scarring nodule infiltrate or mass. Lung bases are now clear 2. No acute abdominal or pelvic disease with prior left nephrectomy, dorsal column stimulator and other findings as described. <Electronically signed by Piter Pickard > 09/07/21 0417
== END ==
LOC: M PLAIMG 14:01
PROVIDERS: ATTEND Internal Medicine Infectious Disease
DX: N12 Tubulo-interstitial nephritis, not specified as acute or chronic (principal); B96.4 Proteus (mirabilis) (morganii) as the cause of diseases classified elsewhere; N39.0 Urinary tract infection, site not specified; N20.0 Calculus of kidney; N18.30 Chronic kidney disease, stage 3 unspecified

== ENCOUNTER → 2021-10-20 | Outpatient (CLI) | payer MEDICARE, MEDICAID ==
[~2021-10-20] MED LIST changes: +ACET-683 PO; +COLC0.6T47 PO; +INVA1SOL IV
[2021-10-20 17:27] LABS: APPEARANCE, URINE HAZY (CLEAR); BACTERIA, URINE AUTO NEGATIVE (NEGATIVE); BILIRUBIN, URINE AUTO NEGATIVE (NEGATIVE); BLOOD, URINE BLOOD NEGATIVE (NEGATIVE); COLOR, URINE YELLOW (YELLOW); GLUCOSE, URINE (UA) AUTO NEGATIVE (NEGATIVE); KETONE, URINE AUTO NEGATIVE (NEGATIVE); LEUKOCYTE ESTERASE, URINE AUTO 3+ (NEGATIVE); MUCUS, URINE SMALL (NEGATIVE); NITRITE, URINE AUTO NEGATIVE (NEGATIVE); PROTEIN, URINE AUTO 2+ mg/dL (NEGATIVE); RBC, URINE AUTO 6 /HPF (0-3); SPECIFIC GRAVITY URINE AUTO 1.017 (1.002-1.035); SQUAMOUS EPITHELIAL CELL UR AU 5 /HPF (0-6); UROBILINOGEN, URINE AUTO 0.2 mg/dL (0.0-2.0); WBC, URINE AUTO 20 /HPF (0-3)
[2021-10-20 17:35] LABS: BASO % 0.6 % (0.0-1.0); EOS # 0.1 10^3/uL (0.0-0.5); EOS % 0.8 % (0.0-3.0); HEMOGLOBIN 12.2 g/dl (12.0-15.5); LYMPH # 1.2 10^3/uL (1.5-5.0); LYMPH % 19.1 % (24.0-44.0); MEAN CORPUSCULAR HEMOGLOBIN 30.8 pg (27.0-33.0); MEAN CORPUSCULAR VOLUME 93.4 fl (80.0-96.0); MONO # 0.5 10^3/uL (0.0-0.8); MONO % 7.9 % (2.0-8.0); NEUTROPHILS # 4.6 10^3/uL (1.5-8.5); NEUTROPHILS % 71.3 % (36.0-66.0); PLATELET COUNT, AUTOMATED 371 10^3/uL (150-450); RED BLOOD COUNT 3.96 10^6/uL (4.00-5.40); WHITE BLOOD COUNT 6.5 10^3/uL (4.0-10.0)
[2021-10-20 17:49] LABS: C REACTIVE PROTEIN QUANTITATIV 0.85 MG/DL (0.00-0.30); CALCIUM LEVEL 9.2 MG/DL (8.5-10.1); CREATININE FOR GFR 1.28 MG/DL (0.55-1.30); GLOMERULAR FILTRATION RATE 47.8 (>58); POTASSIUM SERUM 4.8 MEQ/L (3.5-5.1)
[2021-10-20 21:01] LABS: ERYTHROCYTE SEDIMENTATION RATE 26 mm/hr (0-20)
== END ==
LOC: M PLALAB 15:46
PROVIDERS: ATTEND Internal Medicine Infectious Disease
DX: N12 Tubulo-interstitial nephritis, not specified as acute or chronic (principal); Z88.1 Allergy status to other antibiotic agents

== ENCOUNTER 2021-10-24 11:20 | Outpatient (CLI) | payer MEDICARE ==
[~2021-10-24 11:20] MED LIST changes: -ACET-683 PO; -COLC0.6T47 PO; -ERTAPENEM SODIUM 1 GM in NS MINI-BAG PLUS 50 ML IV ONE; -INVA1SOL IV
[2021-10-24] MEDS ORDERED: INVA1SOL IV (11:41)
[2021-10-24] MEDS ORDERED: ALLO100T PO (11:41)
[2021-10-24] MEDS ORDERED: ACET-683 PO (11:41)
[2021-10-24] MEDS ORDERED: COLC0.6T47 PO (11:41)
[2021-10-24] MEDS ORDERED: LIDOCAINE 1% MDV 20ML VIAL As Ordered ONE (12:10)
[2021-10-24 13:04] VITALS: BP 139/76
--- NOTE | 2021-10-24 17:15 | REP ---
PROCEDURE NAME: PICC LINE INSERTION W/SITERITE CLINICAL INFORMATION: [facility] [employer]. COMPARISON: None. PROCEDURE DESCRIPTION: The procedure was performed by SHIRA Bhatt, under the direct supervision of Dr. Kinsey. The risks and benefits of the procedure were explained to the patient and an informed consent was obtained both verbally and written. Directly prior to the start of the procedure a formal time-out was completed in the procedure room. The left basilic vein was localized using ultrasound guidance. The skin was prepped and draped in sterile fashion. Two mL of 1% lidocaine 10 mg/mL was used as a local anesthetic. Using ultrasound guidance the left basilic vein was cannulated, and a 0.018 guidewire was inserted and advanced to the level of SVC using fluoroscopic guidance. The needle was removed and a 5 [place] dilator and peel-away sheath was inserted over the guidewire. A 4.5 [place] single lumen catheter was cut to a length of 38 cm. The dilator was removed and the catheter was inserted over the guidewire with the tip ending at the level of the SVC. The peel-away sheath was removed and the catheter was flushed with heparinized saline as per hospital protocol. The catheter was affixed to the skin and a sterile dressing was applied. The patient tolerated the procedure well and there were no immediate complications. CONCLUSION: PICC line insertion into the left basilic vein. 0.1 minutes of fluoroscopy time was utilized for this procedure. Some fluoroscopic images are performed with last image hold technology. These images require no additional radiation. <Electronically signed by Vi Jesus > 10/24/21 0161 <Electronically signed by Vargas Kinsey > 10/24/21 [id number]
== END 2021-10-24 12:10 | disposition home or self-care (01) ==
LOC: M IRPRO 11:20
PROVIDERS: ATTEND Internal Medicine Infectious Disease
DX: N12 Tubulo-interstitial nephritis, not specified as acute or chronic (principal); Z88.0 Allergy status to penicillin; Z88.1 Allergy status to other antibiotic agents; Z88.5 Allergy status to narcotic agent; Z88.8 Allergy status to other drugs, medicaments and biological substances
CPT/HCPCS: 36573; 96365; C1751; J1335; J1642; J1644

== ENCOUNTER → 2021-10-24 | Outpatient (CLI) | payer MEDICARE, MEDICAID ==
[~2021-10-24] VITALS: Ht 170.2 cm; Wt 92.7 kg
[~2021-10-24] MED LIST changes: +ERTAPENEM SODIUM 1 GM in NS MINI-BAG PLUS 50 ML IV ONE
[2021-10-24 10:20] VITALS: BP 139/73
[2021-10-24 11:35] VITALS: BP 148/89
== END ==
LOC: M INFU 10:17
PROVIDERS: ATTEND Internal Medicine Infectious Disease
DX: N10 Acute pyelonephritis (principal); Z88.0 Allergy status to penicillin; Z88.1 Allergy status to other antibiotic agents; Z88.8 Allergy status to other drugs, medicaments and biological substances; Z88.5 Allergy status to narcotic agent

== ENCOUNTER 2021-10-25 10:17 | Outpatient (CLI) | payer MEDICARE, MEDICAID ==
[~2021-10-25 10:17] MED LIST changes: +ACET-683 PO; +COLC0.6T47 PO; +INVA1SOL IV; +SODIUM CHLORIDE 0.9% INJ 10 ML SYR IV PRN; +SODIUM CHLORIDE 0.9% INJ 10 ML SYR IV SCH
[2021-10-25 10:20] VITALS: BP 151/77
[2021-10-25] MEDS ORDERED: ERTAPENEM SODIUM 1 GM in NS MINI-BAG PLUS 50 ML IV SCH (10:30)
[2021-10-25 11:04] VITALS: BP 153/80
== END 2021-10-25 11:05 ==
LOC: M INFU 10:17
PROVIDERS: ATTEND Internal Medicine Infectious Disease
DX: N12 Tubulo-interstitial nephritis, not specified as acute or chronic (principal); Z88.0 Allergy status to penicillin; Z88.1 Allergy status to other antibiotic agents; Z88.6 Allergy status to analgesic agent; Z88.8 Allergy status to other drugs, medicaments and biological substances
CPT/HCPCS: 96365; J1335; J1642

== ENCOUNTER → 2021-12-14 | Outpatient (REF) | payer MEDICARE ==
[~2021-12-14] MED LIST changes: -SODIUM CHLORIDE 0.9% INJ 10 ML SYR IV PRN; -SODIUM CHLORIDE 0.9% INJ 10 ML SYR IV SCH
[2021-12-14 18:54] LABS: APPEARANCE, URINE CLEAR (CLEAR); BACTERIA, URINE AUTO 1+ (NEGATIVE); BILIRUBIN, URINE AUTO NEGATIVE (NEGATIVE); BLOOD, URINE BLOOD NEGATIVE (NEGATIVE); COLOR, URINE STRAW (YELLOW); GLUCOSE, URINE (UA) AUTO NEGATIVE (NEGATIVE); KETONE, URINE AUTO NEGATIVE (NEGATIVE); LEUKOCYTE ESTERASE, URINE AUTO 3+ (NEGATIVE); NITRITE, URINE AUTO NEGATIVE (NEGATIVE); PROTEIN, URINE AUTO 2+ mg/dL (NEGATIVE); RBC, URINE AUTO 7 /HPF (0-3); SPECIFIC GRAVITY URINE AUTO 1.006 (1.002-1.035); SQUAMOUS EPITHELIAL CELL UR AU 3 /HPF (0-6); UROBILINOGEN, URINE AUTO 0.2 mg/dL (0.0-2.0); WBC, URINE AUTO 3 /HPF (0-3)
== END ==
LOC: M SMT 16:40
PROVIDERS: ATTEND Urology
DX: N39.0 Urinary tract infection, site not specified (principal)

== ENCOUNTER → 2021-12-28 | Outpatient (REF) | payer MEDICARE, MEDICAID ==
[2021-12-28 13:42] LABS: APPEARANCE, URINE CLEAR (CLEAR); BACTERIA, URINE AUTO NEGATIVE (NEGATIVE); BILIRUBIN, URINE AUTO NEGATIVE (NEGATIVE); BLOOD, URINE BLOOD NEGATIVE (NEGATIVE); COLOR, URINE STRAW (YELLOW); GLUCOSE, URINE (UA) AUTO NEGATIVE (NEGATIVE); KETONE, URINE AUTO NEGATIVE (NEGATIVE); LEUKOCYTE ESTERASE, URINE AUTO 1+ (NEGATIVE); MUCUS, URINE SMALL (NEGATIVE); NITRITE, URINE AUTO NEGATIVE (NEGATIVE); PROTEIN, URINE AUTO 2+ mg/dL (NEGATIVE); RBC, URINE AUTO 2 /HPF (0-3); SPECIFIC GRAVITY URINE AUTO 1.015 (1.002-1.035); SQUAMOUS EPITHELIAL CELL UR AU 3 /HPF (0-6); UROBILINOGEN, URINE AUTO 0.2 mg/dL (0.0-2.0); WBC, URINE AUTO 4 /HPF (0-3)
== END ==
LOC: M SMT 12:43
PROVIDERS: ATTEND Urology
DX: R30.0 Dysuria (principal)

== ENCOUNTER → 2022-01-13 | Outpatient (REF) | payer MEDICARE, MEDICAID ==
[2022-01-13 14:47] LABS: APPEARANCE, URINE CLEAR (CLEAR); BACTERIA, URINE AUTO NEGATIVE (NEGATIVE); BILIRUBIN, URINE AUTO NEGATIVE (NEGATIVE); BLOOD, URINE BLOOD NEGATIVE (NEGATIVE); COLOR, URINE STRAW (YELLOW); GLUCOSE, URINE (UA) AUTO NEGATIVE (NEGATIVE); KETONE, URINE AUTO NEGATIVE (NEGATIVE); LEUKOCYTE ESTERASE, URINE AUTO 1+ (NEGATIVE); MUCUS, URINE SMALL (NEGATIVE); NITRITE, URINE AUTO NEGATIVE (NEGATIVE); PROTEIN, URINE AUTO 2+ mg/dL (NEGATIVE); RBC, URINE AUTO 1 /HPF (0-3); SPECIFIC GRAVITY URINE AUTO 1.011 (1.002-1.035); SQUAMOUS EPITHELIAL CELL UR AU 2 /HPF (0-6); UROBILINOGEN, URINE AUTO 0.2 mg/dL (0.0-2.0); WBC, URINE AUTO 4 /HPF (0-3)
== END ==
LOC: M SMT 13:00
PROVIDERS: ATTEND Urology
DX: N39.0 Urinary tract infection, site not specified (principal)

== ENCOUNTER → 2022-01-17 | Outpatient (REF) | payer MEDICARE, MEDICAID | LOC: M LAB REF 16:43 | PROVIDERS: ATTEND Internal Medicine Nephrology | DX: Z87.440 Personal history of urinary (tract) infections (principal); Z79.899 Other long term (current) drug therapy ==

== ENCOUNTER → 2022-03-29 | Outpatient (REF) | payer MEDICARE, MEDICAID | LOC: M LAB REF 16:37 | PROVIDERS: ATTEND Internal Medicine Nephrology | DX: N18.31 Chronic kidney disease, stage 3a (principal); R30.0 Dysuria ==

== ENCOUNTER → 2022-04-07 | Outpatient (REF) | payer MEDICARE, MEDICAID | LOC: M LAB REF 17:20 | PROVIDERS: ATTEND Internal Medicine Nephrology | DX: R30.0 Dysuria (principal) ==

== ENCOUNTER → 2022-06-14 | Outpatient (CLI) | payer MEDICARE, MEDICAID ==
[2022-06-14 12:03] LABS: BASO % 0.3 % (0.0-1.0); EOS # 0.1 10^3/uL (0.0-0.5); EOS % 1.8 % (0.0-3.0); HEMATOCRIT 40.4 % (36.0-47.0); LYMPH # 1.5 10^3/uL (1.5-5.0); LYMPH % 23.3 % (24.0-44.0); MEAN CORPUSCULAR HEMOGLOBIN 30.7 pg (27.0-33.0); MEAN CORPUSCULAR HGB CONC 32.2 g/dl (32.0-36.5); MEAN CORPUSCULAR VOLUME 95.3 fl (80.0-96.0); MONO # 0.5 10^3/uL (0.0-0.8); MONO % 7.1 % (2.0-8.0); NEUTROPHILS # 4.4 10^3/uL (1.5-8.5); PLATELET COUNT, AUTOMATED 349 10^3/uL (150-450); RED BLOOD COUNT 4.24 10^6/uL (4.00-5.40); WHITE BLOOD COUNT 6.6 10^3/uL (4.0-10.0)
[2022-06-14 12:56] LABS: ERYTHROCYTE SEDIMENTATION RATE 12 mm/hr (0-20)
[2022-06-14 13:00] LABS: BILIRUBIN,TOTAL 0.2 MG/DL (0.2-1.0); C REACTIVE PROTEIN QUANTITATIV 0.57 MG/DL (0.00-0.30); CALCIUM LEVEL 8.8 MG/DL (8.5-10.1); CREATININE FOR GFR 1.16 MG/DL (0.55-1.30); GLOMERULAR FILTRATION RATE 53.3 (>58); POTASSIUM SERUM 4.7 MEQ/L (3.5-5.1); THYROID STIMULATING HORMONE 2.43 uIU/ML (0.358-3.740); TOTAL PROTEIN 6.3 GM/DL (6.4-8.2)
[2022-06-16 12:07] LABS: ANTI DS-DNA AB Negative (Negative)
== END ==
LOC: M LAB 10:40
PROVIDERS: ATTEND Physician Assistant
DX: Z51.81 Encounter for therapeutic drug level monitoring (principal); R20.2 Paresthesia of skin; M19.90 Unspecified osteoarthritis, unspecified site; M25.461 Effusion, right knee

== ENCOUNTER → 2022-06-19 | Outpatient (REF) | payer MEDICARE, MEDICAID ==
[2022-06-19 16:47] LABS: APPEARANCE, URINE MANUAL CLEAR (CLEAR); COLOR, URINE MANUAL YELLOW (YELLOW)
[2022-06-19 16:50] LABS: BILIRUBIN, URINE MANUAL NEGATIVE (NEGATIVE); BLOOD URINE MANUAL NEGATIVE (NEGATIVE); GLUCOSE, URINE (UA) MANUAL NEGATIVE (NEGATIVE); KETONE, URINE MANUAL NEGATIVE (NEGATIVE); LEUKOCYTE ESTERASE, URINE MAN POSITIVE (NEGATIVE); NITRITE, URINE MANUAL NEGATIVE (NEGATIVE); PROTEIN, URINE MANUAL 2+ mg/dL (NEGATIVE); UROBILINOGEN, URINE MANUAL NORMAL (NORMAL)
[2022-06-19 16:55] LABS: AMORPHOUS SEDIMENT, URINE SMALL AMOUNT (NEGATIVE); BACTERIA, URINE MOD AMOUNT; HYALINE CAST, URINE NONE SEEN /lpf (0-1); SQUAMOUS EPITHELIAL CELL URINE SMALL AMOUNT /hpf (SMALL AMT); WBC, URINE 15-20 /hpf (0-3)
== END ==
LOC: M LAB REF 16:15
PROVIDERS: ATTEND Physician Assistant
DX: N39.0 Urinary tract infection, site not specified (principal)

== ENCOUNTER 2022-06-20 10:38 | Emergency (ER) | payer MEDICARE, MEDICAID ==
[~2022-06-20] VITALS: Ht 170.2 cm; Wt 91.5 kg
[2022-06-20] MEDS ORDERED: NS 1,000 ML IV ONE (11:55)
[2022-06-20 12:21] LABS: BASO % 0.4 % (0.0-1.0); EOS # 0.1 10^3/uL (0.0-0.5); EOS % 0.9 % (0.0-3.0); HEMATOCRIT 39.2 % (36.0-47.0); HEMOGLOBIN 12.7 g/dl (12.0-15.5); LYMPH # 1.4 10^3/uL (1.5-5.0); MEAN CORPUSCULAR HEMOGLOBIN 31.4 pg (27.0-33.0); MEAN CORPUSCULAR HGB CONC 32.4 g/dl (32.0-36.5); MEAN CORPUSCULAR VOLUME 96.8 fl (80.0-96.0); MONO # 0.4 10^3/uL (0.0-0.8); MONO % 5.4 % (2.0-8.0); NEUTROPHILS # 5.7 10^3/uL (1.5-8.5); NEUTROPHILS % 74.9 % (36.0-66.0); PLATELET COUNT, AUTOMATED 325 10^3/uL (150-450); RED BLOOD COUNT 4.05 10^6/uL (4.00-5.40); WHITE BLOOD COUNT 7.6 10^3/uL (4.0-10.0)
[2022-06-20 13:03] LABS: ALBUMIN 3.1 GM/DL (3.2-5.2); BILIRUBIN,DIRECT 0.1 MG/DL (0.0-0.2); BILIRUBIN,TOTAL 0.5 MG/DL (0.2-1.0); CALCIUM LEVEL 8.9 MG/DL (8.5-10.1); CREATININE FOR GFR 1.13 MG/DL (0.55-1.30); GLOMERULAR FILTRATION RATE 54.9 (>58); POTASSIUM SERUM 4.6 MEQ/L (3.5-5.1); TOTAL PROTEIN 6.5 GM/DL (6.4-8.2)
[2022-06-20 13:18] LABS: WBC, URINE 20-30 /hpf (0-3)
[2022-06-20 13:19] LABS: BACTERIA, URINE MOD AMOUNT; HYALINE CAST, URINE NONE SEEN /lpf (0-1); RBC, URINE NONE SEEN /hpf (0-3); SQUAMOUS EPITHELIAL CELL URINE MOD AMOUNT /hpf (SMALL AMT)
[2022-06-20 13:20] LABS: MUCUS, URINE SMALL AMOUNT (NEGATIVE)
[2022-06-20 14:04] VITALS: BP 179/91
== END 2022-06-20 14:37 | disposition home or self-care (01) ==
LOC: M ED 10:38
DX: R30.0 Dysuria (principal); G43.909 Migraine, unspecified, not intractable, without status migrainosus; E78.5 Hyperlipidemia, unspecified; N18.9 Chronic kidney disease, unspecified; Z87.442 Personal history of urinary calculi; Z88.0 Allergy status to penicillin; Z88.1 Allergy status to other antibiotic agents; Z88.5 Allergy status to narcotic agent; Z79.51 Long term (current) use of inhaled steroids; Z79.899 Other long term (current) drug therapy

== ENCOUNTER → 2022-12-25 | Outpatient (REF) | payer MEDICARE, MEDICAID ==
[~2022-12-25] MED LIST changes: +ALBU6.7H6; -PROV108A
== END ==
LOC: M LAB REF 16:46
PROVIDERS: ATTEND Student in an Organized Health Care Education/Training Program
DX: N39.0 Urinary tract infection, site not specified (principal)

== ENCOUNTER → 2023-01-05 | Outpatient (CLI) | payer MEDICARE, MEDICAID ==
[2023-01-05 15:26] LABS: BASO % 0.5 % (0.0-1.0); EOS # 0.2 10^3/uL (0.0-0.5); HEMATOCRIT 41.4 % (36.0-47.0); HEMOGLOBIN 13.5 g/dl (12.0-15.5); LYMPH # 1.9 10^3/uL (1.5-5.0); MEAN CORPUSCULAR HEMOGLOBIN 29.2 pg (27.0-33.0); MEAN CORPUSCULAR HGB CONC 32.6 g/dl (32.0-36.5); MEAN CORPUSCULAR VOLUME 89.6 fl (80.0-96.0); MONO # 0.7 10^3/uL (0.0-0.8); MONO % 8.9 % (2.0-8.0); NEUTROPHILS # 5.3 10^3/uL (1.5-8.5); NEUTROPHILS % 65.2 % (36.0-66.0); PLATELET COUNT, AUTOMATED 378 10^3/uL (150-450); RED BLOOD COUNT 4.62 10^6/uL (4.00-5.40); WHITE BLOOD COUNT 8.1 10^3/uL (4.0-10.0)
[2023-01-05 15:47] LABS: CALCIUM LEVEL 8.7 MG/DL (8.5-10.1); CREATININE FOR GFR 1.1 MG/DL (0.55-1.30); GLOMERULAR FILTRATION RATE 56.7 (>58); POTASSIUM SERUM 4.4 MMOL/L (3.5-5.1)
== END ==
LOC: M PLALAB 13:15
PROVIDERS: ATTEND Student in an Organized Health Care Education/Training Program
DX: N39.0 Urinary tract infection, site not specified (principal)

== ENCOUNTER → 2023-01-05 | Outpatient (REF) | payer MEDICARE, MEDICAID ==
[2023-01-05 18:33] LABS: APPEARANCE, URINE CLEAR (CLEAR); BACTERIA, URINE AUTO NEGATIVE (NEGATIVE); BILIRUBIN, URINE AUTO NEGATIVE (NEGATIVE); BLOOD, URINE BLOOD NEGATIVE (NEGATIVE); COLOR, URINE YELLOW (YELLOW); GLUCOSE, URINE (UA) AUTO NEGATIVE (NEGATIVE); KETONE, URINE AUTO NEGATIVE (NEGATIVE); LEUKOCYTE ESTERASE, URINE AUTO NEGATIVE (NEGATIVE); MUCUS, URINE SMALL (NEGATIVE); NITRITE, URINE AUTO NEGATIVE (NEGATIVE); PROTEIN, URINE AUTO 3+ mg/dL (NEGATIVE); RBC, URINE AUTO 1 /HPF (0-3); SPECIFIC GRAVITY URINE AUTO 1.019 (1.002-1.035); SQUAMOUS EPITHELIAL CELL UR AU 4 /HPF (0-6); UROBILINOGEN, URINE AUTO 0.2 mg/dL (0.0-2.0); WBC, URINE AUTO 1 /HPF (0-3)
== END ==
LOC: M SMT 17:07
PROVIDERS: ATTEND Physician Assistant
DX: R30.0 Dysuria (principal)

== ENCOUNTER → 2023-06-22 | Outpatient (REF) | payer MEDICARE, MEDICAID ==
[~2023-06-22] MED LIST changes: -HYDR200T3 PO; +HYDR200T46 PO
== END ==
LOC: M SFHCPLAZ 16:49
PROVIDERS: ATTEND Student in an Organized Health Care Education/Training Program
DX: N39.0 Urinary tract infection, site not specified (principal)

== ENCOUNTER → 2023-06-25 | Outpatient (CLI) | payer MEDICARE, MEDICAID ==
[2023-06-25 19:32] LABS: BASO % 0.4 % (0.0-1.0); EOS # 0.1 10^3/uL (0.0-0.5); EOS % 0.9 % (0.0-3.0); HEMATOCRIT 42.5 % (36.0-47.0); LYMPH % 19.6 % (24.0-44.0); MEAN CORPUSCULAR HGB CONC 32.9 g/dl (32.0-36.5); MONO # 0.9 10^3/uL (0.0-0.8); MONO % 8.2 % (2.0-8.0); NEUTROPHILS # 7.3 10^3/uL (1.5-8.5); NEUTROPHILS % 70.6 % (36.0-66.0); PLATELET COUNT, AUTOMATED 356 10^3/uL (150-450); RED BLOOD COUNT 4.83 10^6/uL (4.00-5.40); WHITE BLOOD COUNT 10.3 10^3/uL (4.0-10.0)
[2023-06-25 19:45] LABS: HEMOGLOBIN A1c 5.1 % (4.0-6.0)
[2023-06-25 21:23] LABS: BLOOD UREA NITROGEN 19 MG/DL (9-23); CARBON DIOXIDE LEVEL 27.7 MMOL/L (20-31); CHLORIDE LEVEL 104 MMOL/L (98-107); CREATININE FOR GFR 1.18 MG/DL (0.55-1.30); GLUCOSE, FASTING 77 MG/DL (60-100); POTASSIUM SERUM 4.5 MMOL/L (3.5-5.1); SODIUM LEVEL 138 MMOL/L (136-145)
[2023-06-25 21:24] LABS: ALBUMIN 3.5 G/DL (3.2-5.2); ALKALINE PHOSPHATASE 113 U/L (46-116); ALT/SGPT 9 U/L (7.0-40); AST/SGOT < 8 U/L (<34); BILIRUBIN,TOTAL 0.4 MG/DL (0.3-1.2); CHOLESTEROL LEVEL 251 MG/DL (<200); CHOLESTEROL RISK RATIO 6.24 (<5); HDL CHOLESTEROL 40.2 MG/DL (>40); LDL CHOLESTEROL 166.2 MG/DL (<100); NON-HDL-C 210.8 MG/DL; TOTAL PROTEIN 6.8 G/DL (5.7-8.2); TRIGLYCERIDES LEVEL 223 MG/DL (<150)
[2023-06-25 21:25] LABS: FREE T4 1.01 NG/DL (0.89-1.76); THYROID STIMULATING HORMONE 2.272 uIU/ML (0.55-4.78); TOTAL 25(OH) VITAMIN D 19.8 NG/ML (20.0-100.0)
== END ==
LOC: M RAD 17:46
PROVIDERS: ATTEND Student in an Organized Health Care Education/Training Program
DX: N12 Tubulo-interstitial nephritis, not specified as acute or chronic (principal); N28.9 Disorder of kidney and ureter, unspecified; Z79.899 Other long term (current) drug therapy

== ENCOUNTER → 2023-06-26 | Outpatient (CLI) | payer MEDICARE, MEDICAID | LOC: M WHC 16:34 | PROVIDERS: ATTEND Family Medicine | DX: N12 Tubulo-interstitial nephritis, not specified as acute or chronic (principal); Z53.9 Procedure and treatment not carried out, unspecified reason ==

== ENCOUNTER → 2023-08-02 | Outpatient (REF) | payer MEDICARE, MEDICAID ==
[2023-08-02 14:21] LABS: AMORPHOUS SEDIMENT SMALL (NEGATIVE); APPEARANCE, URINE HAZY (CLEAR); BACTERIA, URINE AUTO 1+ (NEGATIVE); BILIRUBIN, URINE AUTO NEGATIVE (NEGATIVE); BLOOD, URINE BLOOD NEGATIVE (NEGATIVE); COLOR, URINE YELLOW (YELLOW); GLUCOSE, URINE (UA) AUTO NEGATIVE (NEGATIVE); KETONE, URINE AUTO NEGATIVE (NEGATIVE); LEUKOCYTE ESTERASE, URINE AUTO 2+ (NEGATIVE); MUCUS, URINE SMALL (NEGATIVE); NITRITE, URINE AUTO NEGATIVE (NEGATIVE); PROTEIN, URINE AUTO 2+ mg/dL (NEGATIVE); RBC, URINE AUTO 2 /HPF (0-3); SPECIFIC GRAVITY URINE AUTO 1.012 (1.002-1.035); SQUAMOUS EPITHELIAL CELL UR AU 2 /HPF (0-6); UROBILINOGEN, URINE AUTO 0.2 mg/dL (0.0-2.0); WBC, URINE AUTO 38 /HPF (0-3)
== END ==
LOC: M SFHCPLAZ 12:53
PROVIDERS: ATTEND Internal Medicine Infectious Disease
DX: N12 Tubulo-interstitial nephritis, not specified as acute or chronic (principal)

== ENCOUNTER → 2025-01-29 | Outpatient (CLI) | payer MEDICARE, MEDICAID | LOC: M RAD 09:49 | PROVIDERS: ATTEND Student in an Organized Health Care Education/Training Program | DX: S80.01XA Contusion of right knee, initial encounter (principal); M25.461 Effusion, right knee; Y92.9 Unspecified place or not applicable; Y93.9 Activity, unspecified ==

== ENCOUNTER → 2025-05-18 | Outpatient (REF) | payer MEDICARE, MEDICAID ==
[~2025-05-18] MED LIST changes: -FLOM0.4C39 PO; +TAMS-18 PO
== END ==
LOC: M SFHCPLAZ 13:35
PROVIDERS: ATTEND Student in an Organized Health Care Education/Training Program
DX: Z53.9 Procedure and treatment not carried out, unspecified reason (principal)

== ENCOUNTER 2025-05-19 15:34 | Outpatient (CLI) | payer MEDICARE, MEDICAID ==
[2025-05-19] MEDS: ERTAPENEM SODIUM 1 GM in NS MINI-BAG PLUS 50 ML IV SCH (16:03)
[2025-05-19 16:10] VITALS: BP 132/74; O2SAT 96
[2025-05-19 16:32] VITALS: BP 136/82; O2SAT 98
== END 2025-05-19 16:34 ==
LOC: M INFU 15:34
PROVIDERS: ATTEND Student in an Organized Health Care Education/Training Program
DX: A04.2 Enteroinvasive Escherichia coli infection (principal); B96.20 Unspecified Escherichia coli [E. coli] as the cause of diseases classified elsewhere; Z88.0 Allergy status to penicillin; Z88.1 Allergy status to other antibiotic agents; Z88.8 Allergy status to other drugs, medicaments and biological substances
CPT/HCPCS: 96365; J1335

== ENCOUNTER 2025-05-20 15:24 | Outpatient (CLI) | payer MEDICARE, MEDICAID ==
[2025-05-20 15:45] VITALS: BP 137/70; O2SAT 96
[2025-05-20] MEDS: ERTAPENEM SODIUM 1 GM in NS MINI-BAG PLUS 50 ML IV ONE (15:51)
[2025-05-20 16:28] VITALS: BP 125/79; O2SAT 96
== END 2025-05-20 16:30 | disposition home or self-care (01) ==
LOC: M INFU 15:24
PROVIDERS: ATTEND Student in an Organized Health Care Education/Training Program
DX: N39.0 Urinary tract infection, site not specified (principal); B96.20 Unspecified Escherichia coli [E. coli] as the cause of diseases classified elsewhere; Z88.0 Allergy status to penicillin; Z88.1 Allergy status to other antibiotic agents; Z88.2 Allergy status to sulfonamides; Z88.5 Allergy status to narcotic agent; Z88.8 Allergy status to other drugs, medicaments and biological substances
CPT/HCPCS: 96365; J1335

== ENCOUNTER 2025-05-21 15:30 | Outpatient (CLI) | payer MEDICARE, MEDICAID ==
[2025-05-21] MEDS: ERTAPENEM SODIUM 1 GM in NS MINI-BAG PLUS 50 ML IV ONE (15:58)
[2025-05-21 16:40] VITALS: BP 126/81; O2SAT 100
== END 2025-05-21 16:40 ==
LOC: M INFU 15:30
PROVIDERS: ATTEND Student in an Organized Health Care Education/Training Program
DX: N39.0 Urinary tract infection, site not specified (principal); Z88.0 Allergy status to penicillin; Z88.1 Allergy status to other antibiotic agents; Z88.5 Allergy status to narcotic agent; Z88.8 Allergy status to other drugs, medicaments and biological substances
CPT/HCPCS: 96365; J1335

== ENCOUNTER → 2025-05-25 | Outpatient (REF) | payer MEDICARE, MEDICAID ==
[2025-05-25 17:39] LABS: APPEARANCE, URINE CLEAR (CLEAR); BACTERIA, URINE AUTO NEGATIVE (NEGATIVE); BILIRUBIN, URINE AUTO NEGATIVE (NEGATIVE); BLOOD, URINE BLOOD NEGATIVE (NEGATIVE); GLUCOSE, URINE (UA) AUTO NEGATIVE (NEGATIVE); KETONE, URINE AUTO NEGATIVE (NEGATIVE); LEUKOCYTE ESTERASE, URINE AUTO NEGATIVE (NEGATIVE); MUCUS, URINE SMALL (NEGATIVE); NITRITE, URINE AUTO NEGATIVE (NEGATIVE); PROTEIN, URINE AUTO 2+ mg/dL (NEGATIVE); RBC, URINE AUTO 0 /HPF (0-3); SPECIFIC GRAVITY URINE AUTO 1.015 (1.002-1.035); SQUAMOUS EPITHELIAL CELL UR AU 2 /HPF (0-6); UROBILINOGEN, URINE AUTO 0.2 mg/dL (0.0-2.0); WBC, URINE AUTO 2 /HPF (0-3)
== END ==
LOC: M SFHCPLAZ 17:05
PROVIDERS: ATTEND Student in an Organized Health Care Education/Training Program
DX: N39.0 Urinary tract infection, site not specified (principal)

== ENCOUNTER → 2025-09-04 | Outpatient (CLI) | payer OTHER ==
[~2025-09-04] MED LIST changes: -COLC0.6T47 PO; +COLC0.6T53 PO
== END ==
LOC: M PLARAD 10:32
PROVIDERS: ATTEND Orthopaedic Surgery
DX: M25.531 Pain in right wrist (principal); M25.431 Effusion, right wrist; M65.931 Unspecified synovitis and tenosynovitis, right forearm